=== PATIENT | female | born 1950 | race Caucasian/White ===

== ENCOUNTER 2018-03-11 17:02 | Inpatient (IN) | payer MEDICARE, SELFPAY ==
[2018-03-11] VITALS (12 sets, daily range): BP systolic 117–141; BP diastolic 67–78; PULSE 85–111; RESP 14–22; TEMP 37.1; O2SAT 88–97; BMI 22.6; BMI 39.8
--- NOTE | 2018-03-11 17:26 | EKG12_ITS ---
Test Reason : DYSRHYTHMIA Blood Pressure : / mmHG Vent. Rate : 107 BPM Atrial Rate : 107 BPM P-R Int : 142 ms QRS Dur : 098 ms QT Int : 346 ms P-R-T Axes : 042 046 038 degrees QTc Int : 461 ms Sinus tachycardia with Premature atrial complexes Otherwise normal ECG Confirmed by RICKY GAMINO, DIAZ ([id number]), non linear editor YOUSIF LITTLE ([id number]) on 03/13/2018 2:38:36 PM Referred By: JACQUELINE Confirmed By:DIAZ GARCÍA MD
[2018-03-11] MEDS: MethylPREDNISolone 125 MG/2 ML Vial IV (17:45)
[2018-03-11] MEDS: Albuterol 2.5 MG/3 ML VIAL.NEB. INHALATION ×2 (17:45)
[2018-03-11] MEDS: Ipratropium/Albuterol Sulfate 3 ML AMPUL.NEB INHALATION ×2 (17:45→22:40)
[2018-03-11] MEDS: 0.9% Normal Saline 1,000 ML 999 ML IV ×2 (17:45→19:26)
[2018-03-11 18:04] LABS: Absolute Neutrophil Count 15.6 X10^3/uL (2.0-7.7); Hematocrit 27.6 % (37-47); Hemoglobin 8.9 g/dl (12.0-15.0); Lymphocyte % 2.3 % (19-41); Mean Corp Hgb Conc 32.2 g/gl (32-36); Mean Corpuscular Hgb 26.2 pg (27.0-32.0); Mean Corpuscular Volume 81.2 fL (81-99); Mean Platelet Vol. 9.6 fl (6.2-12.0); Monocyte# 1.12 X10^3/uL; Monocyte% 6.5 % (0-10); Neutrophil % 91.1 % (47-70); Platelet Count 184 K/mm3 (150-450); RBC Distribution Width SD 47.9 fl (35.1-43.9); White Blood Count 17.1 K/mm3 (4.4-11.0)
[2018-03-11 18:05] LABS: POSITIVE COUNT NO; POSITIVE DIFFERENTIAL YES; POSITIVE MORPHOLOGY NO
[2018-03-11 18:06] LABS: Differential Indicated SCAN CRITERIA MET
[2018-03-11 18:09] LABS: Anion Gap 14 (5-15); BUN 84 mg/dL (7-18); BUN/Creat Ratio 14.3 RATIO (10-20); Calcium,Total 8.9 mg/dL (8.5-10.1); Chloride 103 mmol/L (98-107); Creatinine, Serum 5.88 mg/dL (0.55-1.02); EST Glomerular Filtration Rate 8 mL/min (>60); Est Glom Filt Rate - Afr Amer 9 mL/min (>60); Estimated Creatinine Clearance 7.54 ml/min; Glucose 135 mg/dL (74-106); Potassium 3.6 mmol/L (3.5-5.1); Sodium Level 132 mmol/L (136-145)
--- NOTE | 2018-03-11 18:15 | RAD_ITS ---
STUDY: X-RAY CHEST REASON FOR EXAM: Female, 67 years old. Cough and hypoxia TECHNIQUE: AP and lateral views of the chest. COMPARISON: Previous study of 05/07/2013 FINDINGS: organic extractions technician leads are present. There is extensive infiltrate and/or atelectasis appearing to be in the superior segment of the right lower lobe. Underlying fibrotic changes may be present. There are status post surgical changes of the right lower and upper lobes. There is right costo phrenic angle blunting. There is evidence of right hemithoracic volume loss. Normal size heart. Normal mediastinum and norma. Normal visualized pulmonary arteries. There are calcified plaques of the aortic arch. Normal visualized thoracic spine. Normal visualized ribs, clavicles, and shoulders. There is no demonstrated abnormality of the visualized soft tissue structures of the upper abdomen. RAD/Chest PA and Lateral IMPRESSION: Extensive infiltrate and/or atelectasis appearing to be in the superior segment of the right lower lobe. This is new in the interval. There may be underlying fibrotic changes as well. There is status post surgical changes of the right lower and upper lobes with associated right hemithoracic volume loss. Right costo phrenic angle blunting consistent with small effusion or pleural reaction. Calcified plaques of the aortic arch. Electronically Signed: Farhan Mathias MD at 19:27 EDT , Service support ,
--- NOTE | 2018-03-11 18:41 | ED.DCSUM_ITS ---
- ER Visit Summary Date of Service: 03/11/18 Chief Complaint: Cough and shortness of breath History of Present Illness: The patient is a 67 F 3 primary lung CA with a right upper lobe pneumonectomy. He states last week she has had a cough of yellowish sputum and shortness of breath. Offices. No chest pain. Physical Examination: Older female vital signs stable pulse ox is 91% room air however there are times she drops down the high 80s consistent with hypoxia. H EENT exam unremarkable. Neck nontender no lymphadenopathy. Lungs diminished breath sounds in the right base. Rhonchi in both bases. Heart regular rhythm rate about 105 no murmur. Abdomen soft and nontender. She is moving all 4 extremities. Calves are nontender. Skin is pale. Neurologically she is awake and alert without focal motor deficits. Test Results: Chest x-ray shows a right lower lobe lobar pneumonia. White count elevated 17,100. Hemoglobin is low at 8.9 she has had prior anemias. Electrolytes show sodium 132. CO2 of 15. Her BUN and creatinine are 84 and 5.8 consistent with her renal failure and her anion gap is 14. Emergency Department Course and Treatment: [] Treatment Plan: [] Disposition: [] Impression: [] This note was generated with [employer] dictation software. It may contain incorrect words, spelling, and punctuation that were not noted in review of the chart prior to signing ED Disposition - Plan for ED Patient: Chief Complaint: Cough Referrals: Care Physician,No Primary [Primary Care Provider] -
--- NOTE | 2018-03-11 19:23 | PCM.HP.STD ---
Problem List (1) CAP (community acquired pneumonia) Status: Acute (2) [place] CKD Stage 3 Status: Acute (3) COPD (chronic obstructive pulmonary disease) Status: Chronic (4) History of lung cancer Status: Chronic (5) Benign hypertension Status: Chronic History of Present Illness Date of Admission: 03/11/18 Chief Complaint: Cough shortness of breath for 1 week The patient is a 67 year old F with history of lung cancer status post right upper lobectomy many years ago, did not require adjuvant therapy came to ER with cough with yellowish sputum and shortness of breath for 1 week. Patient also has intermittent fever for 1 day. In ER, patient was found to have hypoxic, at times pulse ox dropped in 88% on room air. Heart rate 104 and respiratory 22/min. Chest x-ray shows right lower lobe opacity/consolidation with underlying atelectasis. Lab work in ER significant of leukocytosis with left shift, acute kidney injury on CKD stage III mild hyponatremia. . [] Past Medical History Past Medical History (Chronic Problems): Chronic Problems COPD (chronic obstructive pulmonary disease) (Chronic) History of lung cancer (Chronic) Benign hypertension (Chronic) Allergies erythromycin base [Erythromycin Base] Adverse Reaction (Verified 03/11/18 17:05) Nausea Home Medications: Ambulatory Orders Medication Instructions Recorded NK [NK] 03/11/18 Surgical History: lobectomy Smoking Status: Former smoker - *Family History Paternal History Items: No pertinent history Review of Systems Constitutional: Reports: Chills, Fever, Malaise, Weakness HEENT: Denies: Head Aches, Sinus Congestion, Sinus Drainage Cardiovascular: Denies: Chest Pain, Palpitations Respiratory: Reports: Cough, Shortness of breath upon exertion, Sputum production. Denies: Shortness of breath at rest Gastrointestinal: Denies: Abdominal Pain, Nausea, Vomiting Genitourinary: Denies: Dysuria Musculoskeletal: Denies: Joint Pain, Joint Tenderness Skin: Denies: Rash, Wounds Neurological: Denies: Numbness, Tingling, Focal weakness Psychiatric: Denies: Anxiety, Depression, Homicidal Ideations, Suicidal Ideations Hematologic/ Lymphatic: Denies: Easy Bruising, Easy Bleeding VTE Information - Inpt Only VTE Present on Admission: No VTE Mechan Device Prophylaxis: SCD's VTE Pharm Prophylaxis ordered?: Yes Patient Problems: Active and Suspected Problems CAP (community acquired pneumonia) (Acute) [place] CKD Stage 3 (Acute) - Physical Exam General: Alert, Oriented x3, Cooperative HEENT: Atraumatic, PERRLA, EOMI, Normocephalic Neck: Supple, No JVD, Negative Carotid Bruits Lungs: Diminished - Air entry diminished on the right lung, Rales - Coarse crepitation present on the posterior half of right lung, Rhonchi, Tachypneic Cardiovascular: Regular Rhythm, Normal S1, Normal S2, No murmurs, Tachycardic Abdomen: Bowel Sounds Present, Soft, Non Tender, Non-Distended Extremities: No edema, Capillary Refill Less than 3 Seconds Skin: No rashes, No breakdown Musculoskeletal: No Tenderness to Palpation of Joints or Extremities, Arthritic Changes, Muscle Wasting Neurological: Cranial nerves II-XII grossly intact Psych/Mental Status: Normal Affect, Appropriate Vital Signs Temp Pulse Resp BP Pulse Ox 98.8 F 85 16 131/67 H 96 03/11/18 17:02 03/11/18 18:40 03/11/18 18:40 03/11/18 18:40 03/11/18 18:40 Oxygen Flow Rate (L/min) 2 Oxygen Delivery Method Nasal Cannula Weight: 123 lb 10.869 oz Body Mass Index (BMI) 22.6 Laboratory Tests Past 24 Hrs 03/11/18 03/11/18 03/11/18 17:45 17:45 19:00 WBC 17.1 H RBC 3.40 L Hgb 8.9 L Hct 27.6 L MCV 81.2 MCH 26.2 L MCHC 32.2 RDW 16.0 H RDW Differential 47.9 H Plt Count 184 MPV 9.6 Immature Gran % (Auto) 0.100 Neut % (Auto) 91.1 H Lymph % (Auto) 2.3 L [place] % (Auto) 6.5 Eos % (Auto) 0.0 Baso % (Auto) 0.0 Absolute Neuts (auto) 15.6 H Absolute Lymphs (auto) 0.40 L Total Counted Pending Sodium 132 L Potassium 3.6 Chloride 103 Carbon Dioxide 15.0 L Anion Gap 14 BUN 84 H Creatinine 5.88 H Estim Creat Clear Calc 7.54 Est GFR (MDRD) Af Amer 9 L Est GFR (MDRD) Non-Af 8 L BUN/Creatinine Ratio 14.3 Glucose 135 H Lactic Acid Pending Calcium 8.9 Assessment/Plan Active and Suspected Problems CAP (community acquired pneumonia) (Acute) [place] CKD Stage 3 (Acute) The patient is a 67 year old F with history of lung cancer status post right upper lobectomy many years ago, did not require adjuvant therapy came to ER with cough with yellowish sputum and shortness of breath for 1 week. Patient also has intermittent fever for 1 day. In ER, patient was found to have hypoxic, at times pulse ox dropped in 88% on room air. Heart rate 104 and respiratory 22/min. Chest x-ray shows extensive infiltrate and/or atelectasis in the superior segment of right lower lobe. May be underlying fibrotic change. Lab work in ER significant of leukocytosis with left shift, acute kidney injury on CKD stage III mild hyponatremia. Patient was last admitted in [facility] in [facility] 2017 for pneumonia and at that time she had kidney failure and was told to follow with spray dry operator. 1. SIRS (tachycardia, tachypnea, hypoxia and leukocytosis) right lower lobe community-acquired pneumonia: The patient is being admitted on PCU. Cardiac monitoring. Lactic acid is pending. Patient got Rocephin and Flomax in ER. Started on IV Zosyn and Zithromax in view of extensive consolidation/infiltrate in the right lower lobe and history of lung cancer. MRSA nasal screening. Pneumonia workup including blood cultures ?2, sputum culture, urinary antigens and influenza test ordered. 2. COPD: Stable with no exacerbation. Continue bronchodilator, incentive spirometry, chest physiotherapy. 3. Acute kidney injury on CKD stage III: On review her creatinine profile, creatinine was 3.3 in April 2013 with baseline around 2.5 in July 2014 and now 5.88. BUN is elevated at 84. Patient does not follow with PCP and spray dry operator although was recommended during last admission as mentioned above. Consult nephrology, Dr. Yusuf. 4. Other comorbidities include hypertension and chronic mild protein calorie malnutrition: Home medication reconciliation done. DVT prophylaxis: On heparin 500 subcutaneous twice daily and bilateral SCDs. Advanced directive: Advanced directive/end-of-life care discussed with the patient and her son, Mr. Moody Hammonds and they want intubation if needed and other life supporting measures including CPR. For now, full code. The patient needs further discussion with the family members to reach definitive conclusion. 17 minutes time spent on [id number] encounter advanced directive. Laboratory Results 03/11/18 17:45: WBC 17.1 H, RBC 3.40 L, Hgb 8.9 L, Hct 27.6 L, MCV 81.2, MCH 26.2 L, MCHC 32.2, RDW 16.0 H, RDW Differential 47.9 H, Plt Count 184, MPV 9.6, Immature Gran % (Auto) 0.100, Neut % (Auto) 91.1 H, Lymph % (Auto) 2.3 L, [place] % (Auto) 6.5, Eos % (Auto) 0.0, Baso % (Auto) 0.0, Absolute Neuts (auto) 15.6 H, Absolute Lymphs (auto) 0.40 L, Total Counted Pending 03/11/18 17:45: Sodium 132 L, Potassium 3.6, Chloride 103, Carbon Dioxide 15.0 L, Anion Gap 14, BUN 84 H, Creatinine 5.88 H, Estim Creat Clear Calc 7.54, Est GFR (MDRD) Af Amer 9 L, Est GFR (MDRD) Non-Af 8 L, BUN/Creatinine Ratio 14.3, Glucose 135 H, Calcium 8.9 03/11/18 19:00: Lactic Acid Pending Clinical Impression(s) from Imaging Studies Chest X-Ray 03/11/18 18:15 IMPRESSION: Extensive infiltrate and/or atelectasis appearing to be in the superior segment of the right lower lobe. This is new in the interval. There may be underlying fibrotic changes as well. There is status post surgical changes of the right lower and upper lobes with associated right hemithoracic volume loss. Right costo phrenic angle blunting consistent with small effusion or pleural reaction. Calcified plaques of the aortic arch. Code Visit Inpatient E&M: 98786 Init Hosp L3 Procedures: 97211 Advncd Care Plan 30 Min
[2018-03-11] MEDS: Ceftriaxone 1 GM/50 mL Premix x1 IV (19:26)
--- NOTE | 2018-03-11 19:38 | HP.PCM_ITS ---
Problem List (1) CAP (community acquired pneumonia) Status: Acute (2) [place] CKD Stage 3 Status: Acute (3) COPD (chronic obstructive pulmonary disease) Status: Chronic (4) History of lung cancer Status: Chronic (5) Benign hypertension Status: Chronic History of Present Illness Date of Admission: 03/11/18 Chief Complaint: Cough shortness of breath for 1 week The patient is a 67 year old F with history of lung cancer status post right upper lobectomy many years ago, did not require adjuvant therapy came to ER with cough with yellowish sputum and shortness of breath for 1 week. Patient also has intermittent fever for 1 day. In ER, patient was found to have hypoxic , at times pulse ox dropped in 88% on room air. Heart rate 104 and respiratory 22/min. Chest x-ray shows right lower lobe opacity/consolidation with underlying atelectasis. Lab work in ER significant of leukocytosis with left shift, acute kidney injury on CKD stage III mild hyponatremia. . [] Past Medical History Past Medical History (Chronic Problems): Chronic Problems COPD (chronic obstructive pulmonary disease) (Chronic) History of lung cancer (Chronic) Benign hypertension (Chronic) Allergies erythromycin base [Erythromycin Base] Adverse Reaction (Verified 03/11/18 17:05) Nausea Home Medications: Ambulatory Orders Medication Instructions Recorded NK [NK] 03/11/18 Surgical History: lobectomy Smoking Status: Former smoker - *Family History Paternal History Items: No pertinent history Review of Systems Constitutional: Reports: Chills, Fever, Malaise, Weakness HEENT: Denies: Head Aches, Sinus Congestion, Sinus Drainage Cardiovascular: Denies: Chest Pain, Palpitations Respiratory: Reports: Cough, Shortness of breath upon exertion, Sputum production. Denies: Shortness of breath at rest Gastrointestinal: Denies: Abdominal Pain, Nausea, Vomiting Genitourinary: Denies: Dysuria Musculoskeletal: Denies: Joint Pain, Joint Tenderness Skin: Denies: Rash, Wounds Neurological: Denies: Numbness, Tingling, Focal weakness Psychiatric: Denies: Anxiety, Depression, Homicidal Ideations, Suicidal Ideations Hematologic/ Lymphatic: Denies: Easy Bruising, Easy Bleeding VTE Information - Inpt Only VTE Present on Admission: No VTE Mechan Device Prophylaxis: SCD's VTE Pharm Prophylaxis ordered?: Yes Patient Problems: Active and Suspected Problems CAP (community acquired pneumonia) (Acute) [place] CKD Stage 3 (Acute) - Physical Exam General: Alert, Oriented x3, Cooperative HEENT: Atraumatic, PERRLA, EOMI, Normocephalic Neck: Supple, No JVD, Negative Carotid Bruits Lungs: Diminished - Air entry diminished on the right lung, Rales - Coarse crepitation present on the posterior half of right lung, Rhonchi, Tachypneic Cardiovascular: Regular Rhythm, Normal S1, Normal S2, No murmurs, Tachycardic Abdomen: Bowel Sounds Present, Soft, Non Tender, Non-Distended Extremities: No edema, Capillary Refill Less than 3 Seconds Skin: No rashes, No breakdown Musculoskeletal: No Tenderness to Palpation of Joints or Extremities, Arthritic Changes, Muscle Wasting Neurological: Cranial nerves II-XII grossly intact Psych/Mental Status: Normal Affect, Appropriate Vital Signs Temp Pulse Resp BP Pulse Ox 98.8 F 85 16 131/67 H 96 03/11/18 17:02 03/11/18 18:40 03/11/18 18:40 03/11/18 18:40 03/11/18 18:40 Oxygen Flow Rate (L/min) 2 Oxygen Delivery Method Nasal Cannula Weight: 123 lb 10.869 oz Body Mass Index (BMI) 22.6 Laboratory Tests Past 24 Hrs 03/11/18 03/11/18 03/11/18 17:45 17:45 19:00 WBC 17.1 H RBC 3.40 L Hgb 8.9 L Hct 27.6 L MCV 81.2 MCH 26.2 L MCHC 32.2 RDW 16.0 H RDW Differential 47.9 H Plt Count 184 MPV 9.6 Immature Gran % (Auto) 0.100 Neut % (Auto) 91.1 H Lymph % (Auto) 2.3 L [place] % (Auto) 6.5 Eos % (Auto) 0.0 Baso % (Auto) 0.0 Absolute Neuts (auto) 15.6 H Absolute Lymphs (auto) 0.40 L Total Counted Pending Sodium 132 L Potassium 3.6 Chloride 103 Carbon Dioxide 15.0 L Anion Gap 14 BUN 84 H Creatinine 5.88 H Estim Creat Clear Calc 7.54 Est GFR (MDRD) Af Amer 9 L Est GFR (MDRD) Non-Af 8 L BUN/Creatinine Ratio 14.3 Glucose 135 H Lactic Acid Pending Calcium 8.9 Assessment/Plan Active and Suspected Problems CAP (community acquired pneumonia) (Acute) [place] CKD Stage 3 (Acute) The patient is a 67 year old F with history of lung cancer status post right upper lobectomy many years ago, did not require adjuvant therapy came to ER with cough with yellowish sputum and shortness of breath for 1 week. Patient also has intermittent fever for 1 day. In ER, patient was found to have hypoxic , at times pulse ox dropped in 88% on room air. Heart rate 104 and respiratory 22/min. Chest x-ray shows extensive infiltrate and/or atelectasis in the superior segment of right lower lobe. May be underlying fibrotic change. Lab work in ER significant of leukocytosis with left shift, acute kidney injury on CKD stage III mild hyponatremia. Patient was last admitted in [facility] in September 2017 for pneumonia and at that time she had kidney failure and was told to follow with tandem mill operator. 1. SIRS (tachycardia, tachypnea, hypoxia and leukocytosis) right lower lobe community-acquired pneumonia: The patient is being admitted on PCU. Cardiac monitoring. Lactic acid is pending. Patient got Rocephin and Flomax in ER. Started on IV Zosyn and Zithromax in view of extensive consolidation/infiltrate in the right lower lobe and history of lung cancer. MRSA nasal screening. Pneumonia workup including blood cultures ?2, sputum culture, urinary antigens and influenza test ordered. 2. COPD: Stable with no exacerbation. Continue bronchodilator, incentive spirometry, chest physiotherapy. 3. Acute kidney injury on CKD stage III: On review her creatinine profile, creatinine was 3.3 in April 2013 with baseline around 2.5 in July 2014 and now 5.88. BUN is elevated at 84. Patient does not follow with PCP and tandem mill operator although was recommended during last admission as mentioned above. Consult nephrology, Dr. Yusuf. 4. Other comorbidities include hypertension and chronic mild protein calorie malnutrition: Home medication reconciliation done. DVT prophylaxis: On heparin 500 subcutaneous twice daily and bilateral SCDs. Advanced directive: Advanced directive/end-of-life care discussed with the patient and her son, Mr. Moody Hammonds and they want intubation if needed and other life supporting measures including CPR. For now, full code. The patient needs further discussion with the family members to reach definitive conclusion. 17 minutes time spent on [id number] encounter advanced directive. Laboratory Results 03/11/18 17:45: WBC 17.1 H, RBC 3.40 L, Hgb 8.9 L, Hct 27.6 L, MCV 81.2, MCH 26.2 L, MCHC 32.2, RDW 16.0 H, RDW Differential 47.9 H, Plt Count 184, MPV 9.6, Immature Gran % (Auto) 0.100, Neut % (Auto) 91.1 H, Lymph % (Auto) 2.3 L, [place] % (Auto) 6.5, Eos % (Auto) 0.0, Baso % (Auto) 0.0, Absolute Neuts (auto) 15.6 H , Absolute Lymphs (auto) 0.40 L, Total Counted Pending 03/11/18 17:45: Sodium 132 L, Potassium 3.6, Chloride 103, Carbon Dioxide 15.0 L , Anion Gap 14, BUN 84 H, Creatinine 5.88 H, Estim Creat Clear Calc 7.54, Est GFR (MDRD) Af Amer 9 L, Est GFR (MDRD) Non-Af 8 L, BUN/Creatinine Ratio 14.3, Glucose 135 H, Calcium 8.9 03/11/18 19:00: Lactic Acid Pending Clinical Impression(s) from Imaging Studies Chest X-Ray 03/11/18 18:15 IMPRESSION: Extensive infiltrate and/or atelectasis appearing to be in the superior segment of the right lower lobe. This is new in the interval. There may be underlying fibrotic changes as well. There is status post surgical changes of the right lower and upper lobes with associated right hemithoracic volume loss. Right costo phrenic angle blunting consistent with small effusion or pleural reaction. Calcified plaques of the aortic arch. Code Visit Inpatient E&M: 57583 Init Hosp L3 Procedures: 69918 Advncd Care Plan 30 Min
[2018-03-11 19:41] LABS: Lactic Acid 2.9 mmol/L (0.4-2.0)
[2018-03-11 19:51] LABS: Anisocytosis 1+; Burr Cells 1+; Differential Comment SCANNED
[2018-03-11 19:53] LABS: Platelet Estimate ADEQUATE (ADEQ)
[2018-03-11 22:11] LABS: M R Staph aureus DNA By PCR Negative (Negative); Probe Check PASS; Specimen Processing Control PASS
[2018-03-11] MEDS: guaiFENesin 1,200 MG Tablet 1200 MG PO (22:22)
[2018-03-11] MEDS: Piperacil/Tazobactam 3.375 GM/50 ML ML IV (22:22)
[2018-03-11] MEDS: Famotidine 20 MG Tablet PO (22:22)
[2018-03-11] MEDS: 0.9% Normal Saline 1,000 ML 100 ML IV (22:22)
[2018-03-11 22:39] LABS: Lactic Acid 2.6 mmol/L (0.4-2.0)
[2018-03-11 23:06] LABS: Reflex Lactate? Y
[2018-03-11] MEDS: Heparin Injection (Vial) 5,000 UNIT/ML VIAL 5000 UNIT SC (23:40)
[2018-03-11 23:59] LABS: Color, Urine Yellow (Yellow); Glucose, Dipstick Normal (Normal); Ketone-Dipstick Negative (Negative); Leukocyte Esterase-Dipstick 25 /ul (Negative); Nitrite-Dipstick Negative (Negative); Occult Blood-Urine 25 /ul (Negative); Protein-Dipstick 100 mg/dl (Negative); Urine Bilirubin Dipstick Negative (Negative); Urine Clarity Clear (Clear); Urine Urobilinogen Normal (Normal)
[2018-03-12] VITALS (21 sets, daily range): BP systolic 142–174; BP diastolic 77–86; PULSE 77–114; RESP 16–19; TEMP 36.4–37.1; O2SAT 96–99
[2018-03-12] MEDS: 0.9% Normal Saline 1,000 ML 100 ML IV ×3 (01:03→22:15)
[2018-03-12 02:08] LABS: Reflex Lactate? Y
[2018-03-12 07:19] LABS: Lactic Acid 1.5 mmol/L (0.4-2.0)
[2018-03-12] MEDS: Ipratropium/Albuterol Sulfate 3 ML AMPUL.NEB INHALATION ×4 (07:40→21:11)
[2018-03-12] MEDS: Famotidine 20 MG Tablet PO ×2 (09:51→22:15)
[2018-03-12] MEDS: guaiFENesin 1,200 MG Tablet 1200 MG PO ×2 (09:51→22:15)
[2018-03-12] MEDS: Polyethylene Glycol 3350 17 GM PACKET PO (09:55)
[2018-03-12] MEDS: Heparin Injection (Vial) 5,000 UNIT/ML VIAL 5000 UNIT SC ×2 (09:55→22:15)
[2018-03-12] MEDS: Piperacil/Tazobactam 3.375 GM/50 ML ML IV (10:00)
--- NOTE | 2018-03-12 10:43 | PCM.CONS.R ---
Consultation - Renal 03/12/18 PCP/ Referring MD: Requesting physician: Ronald Pederson Primary care physician: No Primary Care Phys Reason for Consultation:: [place] - History of Present Illness History of Present Illness: The patient is a 67 year old F admitted for right lower lobe pneumonia. She has a history of lung CA s/p right upper lobe lobectomy in 2007 at [facility] not requiring any chemo or radiation following surgery. She complained of a productive cough with yellow sputum, shortness of breath since last week. WBC elevated at 17K on admit. BUN 84, creatinine 5.8 with anion gap 14. Creatinine has been at 0.95 in 2012. Creatinine has been at 2.5 in 2013. She has no primary care physician. Her last primary care doctor was Dr. Radha Gifford when she was last seen in 2012. She was on medications for hypertension including Cozaar and potassium supplements [id number] for cramps. She was taken off all her blood pressure medications due to hypotension in 2012. She was at [facility] for pneumonia about 6 months ago. Kidney ultrasound from [facility] in May 2013 showed right kidney measuring 10.4 cm left kidney 11.7 cm. She had a cyst measuring 10 x 8 x 5 mm on the right. She had bilateral hydronephrosis. Currently she denies any flank pain. Denied any bladder fullness. She has nocturia about 3 times at night. Since admission she had decreased urinary output despite IV fluid resuscitation for hypotension. She complained of weakness at home. Denied any falls or lightheadedness dizziness. Her appetite has been poor over the weekend. Denied any abdominal pain nausea or vomiting. She has a history of chronic NSAID use years ago. She did take ibuprofen about 2 a day for general aches. Denied any fever or chills. Her son was sick at home. - Allergies Allergies: Allergies erythromycin base [Erythromycin Base] Adverse Reaction (Verified 03/11/18 17:05) Nausea - Current Medications Current Medications: Current Medications Acetaminophen (Tylenol) 650 mg PO Q4H PRN PRN PRN Reason: Fever/pain Al Hydroxide/Mg Hydroxide (Mylanta Ii) 30 ml PO Q6H PRN PRN PRN Reason: Gastric Burning Albuterol Sulfate (Ventolin Aerosols) 2.5 mg INHALATION Q2H PRN PRN PRN Reason: SHORTNESS OF BREATH Albuterol/Ipratropium (Duoneb) 3 ml INHALATION Q4HWA.RT [facility] Last Admin: 03/12/18 07:40 Dose: 3 ml Docusate Sodium (Colace) 200 mg PO BID PRN PRN PRN Reason: Constipation Famotidine (Pepcid) 20 mg PO BID [facility] Last Admin: 03/12/18 09:51 Dose: 20 mg Guaifenesin (Mucinex) 1,200 mg PO BID [facility] Last Admin: 03/12/18 09:51 Dose: 1,200 mg Heparin Sodium (Porcine) (Heparin Na) 5,000 unit SC Q12 [facility] Last Admin: 03/12/18 09:55 Dose: 5,000 unit Azithromycin 500 mg/ Dextrose 255 mls @ 250 mls/hr IV Q24 [facility] Stop: 03/14/18 11:02 Last Admin: 03/12/18 09:55 Dose: 250 mls/hr Piperacillin Sod/Tazobactam Sod (Zosyn) 3.375 gm in 50 mls @ 12.5 mls/hr IV Q12 [facility] Last Admin: 03/12/18 10:00 Dose: 12.5 mls/hr Sodium Chloride () 1,000 mls @ 100 mls/hr IV .Q10H [facility] Last Admin: 03/12/18 09:50 Dose: 100 mls/hr Ondansetron HCl (Zofran) 4 mg IV Q8H PRN PRN PRN Reason: NAUSEA Oxycodone HCl (Oxyir) 5 mg PO Q4H PRN PRN PRN Reason: Moderate Pain (pain scale 4-5) Polyethylene Glycol (Miralax) 17 gm PO DAILY [facility] Last Admin: 03/12/18 09:55 Dose: 17 gm Sodium Chloride () 5 - 30 ml IV UD PRN PRN Reason: SALINE FLUSH Zolpidem Tartrate (Ambien (Generic)) 5 mg PO QHS PRN PRN PRN Reason: SLEEP - Past Medical History Past Medical History (Chronic Problems): Chronic Problems COPD (chronic obstructive pulmonary disease) (Chronic) History of lung cancer (Chronic) Benign hypertension (Chronic) - Past Surgical History Surgical History: cholecystectomy, - - RLL lobectomy - Social History Smoking Status: Former smoker - Family History Paternal History Items: Dementia, Heart Disease, Hypertension, Stroke Maternal History Items: Hypertension Sibling History Items: COPD - sister, Heart Disease - 2 brothers, Hypertension - brother, sister Review of Systems Constitutional: Reports: Anorexia, Malaise, Weakness, Fatigue, - - Denied falls. Denies: Chills, Fever Eyes: Denies: Vision Change HEENT: Denies: Difficulty Hearing, Head Aches, Sore Throat Cardiovascular: Denies: Chest Pain, Edema, Light Headedness, Syncope Respiratory: Reports: Cough, Shortness of Breath, - - History of lung cancer status post right upper lobe lobectomy. Denies: Hemoptysis, Wheezing Gastrointestinal: Reports: - - Anorexia. Denies: Abdominal Pain, Constipation, Diarrhea, Nausea, Vomiting Genitourinary: Reports: Nocturia - 3 times a night. Denies: Dysuria Neurological: Denies: Balance problems, Slurred speech, Numbness, Tremor, Seizures Psychiatric: Denies: Anxiety, Depression Hematologic/ Lymphatic: Denies: Anemia, Hx of blood clot Patient Problems: Active and Suspected Problems CAP (community acquired pneumonia) (Acute) [place] CKD Stage 3 (Acute) - Physical Exam General: Alert, Oriented x3, Cooperative, No apparent distress HEENT: PERRLA, EOMI Oral: Dry Mucosa Neck: Supple, No JVD Lungs: Rales - Right lung base posteriorly Cardiovascular: Regular rate, No rub noted Abdomen: Bowel Sounds Present, Soft, Non Tender, Non-Distended Extremities: No edema, Diminished Peripheral Pulses Skin: No rashes Musculoskeletal: Muscle Wasting Neurological: Cranial nerves II-XII grossly intact Psych/Mental Status: Normal Affect, Appropriate, Alert and oriented to time, place, person, mood and affect Vital Signs Temp Pulse Resp BP Pulse Ox 98.7 F 91 18 142/86 H 99 03/12/18 04:17 03/12/18 09:34 03/12/18 09:34 03/12/18 04:17 03/12/18 09:34 Oxygen Flow Rate (L/min) 2 Oxygen Delivery Method Nasal Cannula Weight: 98.7 kg Body Mass Index (BMI) 39.8 Intake and Output for Last 24 Hours 03/10/18 03/11/18 03/12/18 23:59 23:59 23:59 Intake Total 2231 / 223 Balance 2231 / 2231 Microbiology Past 72 Hours 03/11/18 23:50 Legionella Antigen - Final Urine, Clean Catch 03/11/18 23:50 Streptococcus pneumoniae Antigen (M - Final Urine, Clean Catch 03/11/18 22:35 Influenza Types A,B Direct FA (JOSEE) - Final Mucosa - Nose 03/11/18 20:41 Gram Stain - Preliminary Sputum, Expectorated/Coughed Laboratory Tests Past 24 Hrs 03/11/18 03/11/18 03/11/18 19:00 20:20 22:00 Lactic Acid 2.9 H 2.6 H Urine Color Urine Clarity Urine pH Ur Specific [place] Urine Protein Urine Glucose (UA) Urine Ketones Urine Occult Blood Urine Nitrite Urine Bilirubin Urine Urobilinogen Ur Leukocyte Esterase MRSA (PCR) Negative 03/11/18 03/12/18 23:50 06:46 Lactic Acid 1.5 Urine Color Yellow Urine Clarity Clear Urine pH 6.0 Ur Specific [place] 1.010 Urine Protein 100 H Urine Glucose (UA) Normal Urine Ketones Negative Urine Occult Blood 25 H Urine Nitrite Negative Urine Bilirubin Negative Urine Urobilinogen Normal Ur Leukocyte Esterase 25 H MRSA (PCR) Clinical Impression(s) from Imaging Studies Chest X-Ray 03/11/18 18:15 IMPRESSION: Extensive infiltrate and/or atelectasis appearing to be in the superior segment of the right lower lobe. This is new in the interval. There may be underlying fibrotic changes as well. There is status post surgical changes of the right lower and upper lobes with associated right hemithoracic volume loss. Right costo phrenic angle blunting consistent with small effusion or pleural reaction. Calcified plaques of the aortic arch. Electronically Signed: Farhan Mathias MD at 19:27 EDT , Service support , Assessment/Plan Active and Suspected Problems CAP (community acquired pneumonia) (Acute) [place] CKD Stage 3 (Acute) 1. Acute kidney injury versus chronic kidney disease with creatinine of 5.88 on admission. Creatinine has been 0.95 in 2012 but has been as high as 3.3 2012, 2.5 in July 2014. Kidney ultrasound from [facility] in May 2013 showed normal size kidneys bilateral hydronephrosis with cyst in the right kidney measuring 10 x 8 x 5 mm. Check kidney ultrasound this admission to evaluate for hydronephrosis and evaluate renal cyst. Continue with IV fluids. History of NSAID use recently over the weekend and in the past. Advised to avoid NSAID use in the future. Avoid nephrotoxins. Daily labs to evaluate for kidney function. Discussed with the patient possibility of needing dialysis if her renal function does not improve. 2. Acute right lower lobe pneumonia. Renal adjust antibiotic therapy 3. history of right upper lobe lobectomy for lung cancer in 2007. 4. History of hypertension off all blood pressure medications. Continue to monitor. Has been on Cozaar in the past. 5. COPD with smoking history quit 2007. Discussed with primary service.
--- NOTE | 2018-03-12 10:48 | CON.PCM_ITS ---
Consultation - Renal 03/12/18 PCP/ Referring MD: Requesting physician: Ronald Pederson Primary care physician: No Primary Care Phys Reason for Consultation:: [place] - History of Present Illness History of Present Illness: The patient is a 67 year old F admitted for right lower lobe pneumonia. She has a history of lung CA s/p right upper lobe lobectomy in 2007 at [facility] not requiring any chemo or radiation following surgery. She complained of a productive cough with yellow sputum, shortness of breath since last week. WBC elevated at 17K on admit. BUN 84, creatinine 5.8 with anion gap 14. Creatinine has been at 0.95 in 2012. Creatinine has been at 2.5 in 2013. She has no primary care physician. Her last primary care doctor was Dr. Radha Gifford when she was last seen in 2012. She was on medications for hypertension including Cozaar and potassium supplements [id number] for cramps. She was taken off all her blood pressure medications due to hypotension in 2012. She was at [facility] for pneumonia about 6 months ago. Kidney ultrasound from [facility] in May 2013 showed right kidney measuring 10.4 cm left kidney 11.7 cm. She had a cyst measuring 10 x 8 x 5 mm on the right. She had bilateral hydronephrosis. Currently she denies any flank pain. Denied any bladder fullness. She has nocturia about 3 times at night. Since admission she had decreased urinary output despite IV fluid resuscitation for hypotension. She complained of weakness at home. Denied any falls or lightheadedness dizziness. Her appetite has been poor over the weekend. Denied any abdominal pain nausea or vomiting. She has a history of chronic NSAID use years ago. She did take ibuprofen about 2 a day for general aches. Denied any fever or chills. Her son was sick at home. - Allergies Allergies: Allergies erythromycin base [Erythromycin Base] Adverse Reaction (Verified 03/11/18 17:05) Nausea - Current Medications Current Medications: Current Medications Acetaminophen (Tylenol) 650 mg PO Q4H PRN PRN PRN Reason: Fever/pain Al Hydroxide/Mg Hydroxide (Mylanta Ii) 30 ml PO Q6H PRN PRN PRN Reason: Gastric Burning Albuterol Sulfate (Ventolin Aerosols) 2.5 mg INHALATION Q2H PRN PRN PRN Reason: SHORTNESS OF BREATH Albuterol/Ipratropium (Duoneb) 3 ml INHALATION Q4HWA.RT [facility] Last Admin: 03/12/18 07:40 Dose: 3 ml Docusate Sodium (Colace) 200 mg PO BID PRN PRN PRN Reason: Constipation Famotidine (Pepcid) 20 mg PO BID [facility] Last Admin: 03/12/18 09:51 Dose: 20 mg Guaifenesin (Mucinex) 1,200 mg PO BID [facility] Last Admin: 03/12/18 09:51 Dose: 1,200 mg Heparin Sodium (Porcine) (Heparin Na) 5,000 unit SC Q12 [facility] Last Admin: 03/12/18 09:55 Dose: 5,000 unit Azithromycin 500 mg/ Dextrose 255 mls @ 250 mls/hr IV Q24 [facility] Stop: 03/14/18 11:02 Last Admin: 03/12/18 09:55 Dose: 250 mls/hr Piperacillin Sod/Tazobactam Sod (Zosyn) 3.375 gm in 50 mls @ 12.5 mls/hr IV Q12 [facility] Last Admin: 03/12/18 10:00 Dose: 12.5 mls/hr Sodium Chloride () 1,000 mls @ 100 mls/hr IV .Q10H [facility] Last Admin: 03/12/18 09:50 Dose: 100 mls/hr Ondansetron HCl (Zofran) 4 mg IV Q8H PRN PRN PRN Reason: NAUSEA Oxycodone HCl (Oxyir) 5 mg PO Q4H PRN PRN PRN Reason: Moderate Pain (pain scale 4-5) Polyethylene Glycol (Miralax) 17 gm PO DAILY [facility] Last Admin: 03/12/18 09:55 Dose: 17 gm Sodium Chloride () 5 - 30 ml IV UD PRN PRN Reason: SALINE FLUSH Zolpidem Tartrate (Ambien (Generic)) 5 mg PO QHS PRN PRN PRN Reason: SLEEP - Past Medical History Past Medical History (Chronic Problems): Chronic Problems COPD (chronic obstructive pulmonary disease) (Chronic) History of lung cancer (Chronic) Benign hypertension (Chronic) - Past Surgical History Surgical History: cholecystectomy, - - RLL lobectomy - Social History Smoking Status: Former smoker - Family History Paternal History Items: Dementia, Heart Disease, Hypertension, Stroke Maternal History Items: Hypertension Sibling History Items: COPD - sister, Heart Disease - 2 brothers, Hypertension - brother , sister Review of Systems Constitutional: Reports: Anorexia, Malaise, Weakness, Fatigue, - - Denied falls. Denies: Chills, Fever Eyes: Denies: Vision Change HEENT: Denies: Difficulty Hearing, Head Aches, Sore Throat Cardiovascular: Denies: Chest Pain, Edema, Light Headedness, Syncope Respiratory: Reports: Cough, Shortness of Breath, - - History of lung cancer status post right upper lobe lobectomy. Denies: Hemoptysis, Wheezing Gastrointestinal: Reports: - - Anorexia. Denies: Abdominal Pain, Constipation, Diarrhea, Nausea, Vomiting Genitourinary: Reports: Nocturia - 3 times a night. Denies: Dysuria Neurological: Denies: Balance problems, Slurred speech, Numbness, Tremor, Seizures Psychiatric: Denies: Anxiety, Depression Hematologic/ Lymphatic: Denies: Anemia, Hx of blood clot Patient Problems: Active and Suspected Problems CAP (community acquired pneumonia) (Acute) [place] CKD Stage 3 (Acute) - Physical Exam General: Alert, Oriented x3, Cooperative, No apparent distress HEENT: PERRLA, EOMI Oral: Dry Mucosa Neck: Supple, No JVD Lungs: Rales - Right lung base posteriorly Cardiovascular: Regular rate, No rub noted Abdomen: Bowel Sounds Present, Soft, Non Tender, Non-Distended Extremities: No edema, Diminished Peripheral Pulses Skin: No rashes Musculoskeletal: Muscle Wasting Neurological: Cranial nerves II-XII grossly intact Psych/Mental Status: Normal Affect, Appropriate, Alert and oriented to time, place, person, mood and affect Vital Signs Temp Pulse Resp BP Pulse Ox 98.7 F 91 18 142/86 H 99 03/12/18 04:17 03/12/18 09:34 03/12/18 09:34 03/12/18 04:17 03/12/18 09:34 Oxygen Flow Rate (L/min) 2 Oxygen Delivery Method Nasal Cannula Weight: 98.7 kg Body Mass Index (BMI) 39.8 Intake and Output for Last 24 Hours 03/10/18 03/11/18 03/12/18 23:59 23:59 23:59 Intake Total 2231 / 223 Balance 2231 / 2231 Microbiology Past 72 Hours 03/11/18 23:50 Legionella Antigen - Final Urine, Clean Catch 03/11/18 23:50 Streptococcus pneumoniae Antigen (M - Final Urine, Clean Catch 03/11/18 22:35 Influenza Types A,B Direct FA (JOSEE) - Final Mucosa - Nose 03/11/18 20:41 Gram Stain - Preliminary Sputum, Expectorated/Coughed Laboratory Tests Past 24 Hrs 03/11/18 03/11/18 03/11/18 19:00 20:20 22:00 Lactic Acid 2.9 H 2.6 H Urine Color Urine Clarity Urine pH Ur Specific [place] Urine Protein Urine Glucose (UA) Urine Ketones Urine Occult Blood Urine Nitrite Urine Bilirubin Urine Urobilinogen Ur Leukocyte Esterase MRSA (PCR) Negative 03/11/18 03/12/18 23:50 06:46 Lactic Acid 1.5 Urine Color Yellow Urine Clarity Clear Urine pH 6.0 Ur Specific [place] 1.010 Urine Protein 100 H Urine Glucose (UA) Normal Urine Ketones Negative Urine Occult Blood 25 H Urine Nitrite Negative Urine Bilirubin Negative Urine Urobilinogen Normal Ur Leukocyte Esterase 25 H MRSA (PCR) Clinical Impression(s) from Imaging Studies Chest X-Ray 03/11/18 18:15 IMPRESSION: Extensive infiltrate and/or atelectasis appearing to be in the superior segment of the right lower lobe. This is new in the interval. There may be underlying fibrotic changes as well. There is status post surgical changes of the right lower and upper lobes with associated right hemithoracic volume loss. Right costo phrenic angle blunting consistent with small effusion or pleural reaction. Calcified plaques of the aortic arch. Electronically Signed: Farhan Mathias MD at 19:27 EDT , Service support , Assessment/Plan Active and Suspected Problems CAP (community acquired pneumonia) (Acute) [place] CKD Stage 3 (Acute) 1. Acute kidney injury versus chronic kidney disease with creatinine of 5.88 on admission. Creatinine has been 0.95 in 2012 but has been as high as 3.3 2012 , 2.5 in July 2014. Kidney ultrasound from [facility] in May 2013 showed normal size kidneys bilateral hydronephrosis with cyst in the right kidney measuring 10 x 8 x 5 mm. Check kidney ultrasound this admission to evaluate for hydronephrosis and evaluate renal cyst. Continue with IV fluids. History of NSAID use recently over the weekend and in the past. Advised to avoid NSAID use in the future. Avoid nephrotoxins. Daily labs to evaluate for kidney function. Discussed with the patient possibility of needing dialysis if her renal function does not improve. 2. Acute right lower lobe pneumonia. Renal adjust antibiotic therapy 3. history of right upper lobe lobectomy for lung cancer in 2007. 4. History of hypertension off all blood pressure medications. Continue to monitor. Has been on Cozaar in the past. 5. COPD with smoking history quit 2007. Discussed with primary service.
--- NOTE | 2018-03-12 10:52 | US_ITS ---
STUDY: RENAL ULTRASOUND - COMPLETE REASON FOR EXAM: Female, 67 years old. Elevated BUN/creatinine, renal failure TECHNIQUE: Ultrasound evaluation of the kidneys was performed with real-time and static martins-scale imaging. COMPARISON: None. FINDINGS: RIGHT KIDNEY: Normal location of the right kidney, which is normal in size. The right kidney measures 13.6 x 9.2 x 7.5 cm. There is a normal cortex of the right kidney. The renal cortex measures 1.3 cm. There is no right renal mass or cyst. There are no right renal calculi. There is severe hydronephrosis of the right kidney. DISTAL RIGHT URETER: There is non-visualization of the distal right ureter. There is no demonstrated right ureterovesical junction calculus. There is a visualized right ureteral jet. LEFT KIDNEY: Normal location of the left kidney, which is normal in size. The left kidney measures 11.1 x 7.9 x 5.3 cm. There is a normal cortex of the left kidney. The renal cortex measures 0.7 cm. There is no left renal mass or cyst. There are no left renal calculi. There is no left hydronephrosis. DISTAL LEFT URETER: There is non-visualization of the distal left ureter. There is no demonstrated left ureterovesical junction calculus. There is a visualized left ureteral jet. AORTA: There is no elongation or tortuosity of the abdominal aorta. I.V.C.: The IVC is patent. BLADDER: The distended urinary bladder has a volume of 70.8 ml. There is a normal wall thickness of the distended urinary bladder. There is no demonstrated mass within the urinary bladder. There are no demonstrated bladder calculi. US/Kidney and Bladder IMPRESSION: Severe bilateral hydronephrosis of uncertain etiology. There is no demonstrated stone or mass on this study. Electronically Signed: Isiah Verma MD at 13:47 EDT , Service support ,
--- NOTE | 2018-03-12 12:01 | CASEMGMT ---
See RN CM Assessment Link. DC Plan: home on discharge. No dc needs identified @ this time. Yesy MONTOYAN RN ACM
--- NOTE | 2018-03-12 16:46 | PCM.PN.HOSP ---
Patient Problems: Active and Suspected Problems CAP (community acquired pneumonia) (Acute) [place] CKD Stage 3 (Acute) Subjective: Patient was seen and examined. She admits to having no PCP for well because her previous PCP moved out of town. Denied any fever or chills. Has less sputum production. Feels much better. Vitals/I&O's: Vital Signs Temp Pulse Resp BP Pulse Ox 97.6 F L 101 H 16 148/80 H 98 03/12/18 12:32 03/12/18 15:41 03/12/18 15:20 03/12/18 12:32 03/12/18 14:00 Oxygen Flow Rate (L/min) 2 Oxygen Delivery Method Nasal Cannula Weight: 56.1 kg Body Mass Index (BMI) 39.8 Intake and Output for Last 24 Hours 03/10/18 03/11/18 03/12/18 23:59 23:59 23:59 Intake Total 2532 / 2532 Balance 2532 / 2532 General: Alert, Oriented x3, Cooperative HEENT: Atraumatic, PERRLA, EOMI, Normocephalic Oral: Moist Mucosa Neck: Supple Lungs: Clear to auscultation, Normal air movement Cardiovascular: Regular rate, Regular Rhythm, Normal S1, Normal S2, No murmurs Abdomen: Bowel Sounds Present, Soft, Non Tender, Non-Distended, No Hepato-splenomegaly Extremities: No edema Skin: No rashes Musculoskeletal: No Tenderness to Palpation of Joints or Extremities Lymphatic: No Cervical, Supraclavicular, or Inguinal Adenopathy Neurological: Cranial nerves II-XII grossly intact, Neuro grossly intact Psych/Mental Status: Normal Affect, Appropriate Microbiology Past 72 Hours 03/11/18 20:41 Sputum, Expectorated/Coughed Gram Stain - Final 03/11/18 23:50 Urine, Clean Catch Legionella Antigen - Final 03/11/18 23:50 Urine, Clean Catch Streptococcus pneumoniae Antigen (M - Final 03/11/18 22:35 Mucosa - Nose Influenza Types A,B Direct FA (JOSEE) - Final Laboratory Results 03/11/18 19:00: Lactic Acid 2.9 H 03/11/18 20:20: MRSA (PCR) Negative 03/11/18 22:00: Lactic Acid 2.6 H 03/11/18 23:50: Urine Color Yellow, Urine Clarity Clear, Urine pH 6.0, Ur Specific [place] 1.010, Urine Protein 100 H, Urine Glucose (UA) Normal, Urine Ketones Negative, Urine Occult Blood 25 H, Urine Nitrite Negative, Urine Bilirubin Negative, Urine Urobilinogen Normal, Ur Leukocyte Esterase 25 H 03/12/18 06:46: Lactic Acid 1.5 Current Medications Acetaminophen (Tylenol) 650 mg PO Q4H PRN PRN PRN Reason: Fever/pain Al Hydroxide/Mg Hydroxide (Mylanta Ii) 30 ml PO Q6H PRN PRN PRN Reason: Gastric Burning Albuterol Sulfate (Ventolin Aerosols) 2.5 mg INHALATION Q2H PRN PRN PRN Reason: SHORTNESS OF BREATH Albuterol/Ipratropium (Duoneb) 3 ml INHALATION Q4HWA.RT [facility] Last Admin: 03/12/18 15:20 Dose: 3 ml Docusate Sodium (Colace) 200 mg PO BID PRN PRN PRN Reason: Constipation Famotidine (Pepcid) 20 mg PO BID [facility] Last Admin: 03/12/18 09:51 Dose: 20 mg Guaifenesin (Mucinex) 1,200 mg PO BID [facility] Last Admin: 03/12/18 09:51 Dose: 1,200 mg Heparin Sodium (Porcine) (Heparin Na) 5,000 unit SC Q12 [facility] Last Admin: 03/12/18 09:55 Dose: 5,000 unit Azithromycin 500 mg/ Dextrose 255 mls @ 250 mls/hr IV Q24 [facility] Stop: 03/14/18 11:02 Last Admin: 03/12/18 09:55 Dose: 250 mls/hr Piperacillin Sod/Tazobactam Sod (Zosyn) 3.375 gm in 50 mls @ 12.5 mls/hr IV Q12 [facility] Last Admin: 03/12/18 10:00 Dose: 12.5 mls/hr Sodium Chloride () 1,000 mls @ 100 mls/hr IV .Q10H [facility] Last Admin: 03/12/18 09:50 Dose: 100 mls/hr Ondansetron HCl (Zofran) 4 mg IV Q8H PRN PRN PRN Reason: NAUSEA Oxycodone HCl (Oxyir) 5 mg PO Q4H PRN PRN PRN Reason: Moderate Pain (pain scale 4-5) Polyethylene Glycol (Miralax) 17 gm PO DAILY [facility] Last Admin: 03/12/18 09:55 Dose: 17 gm Sodium Chloride () 5 - 30 ml IV UD PRN PRN Reason: SALINE FLUSH Zolpidem Tartrate (Ambien (Generic)) 5 mg PO QHS PRN PRN PRN Reason: SLEEP Medical Necessity - Tobacco Use Smoking Status: Former smoker Assessment/Plan Active and Suspected Problems CAP (community acquired pneumonia) (Acute) [place] CKD Stage 3 (Acute) 67-year-old female with past medical history of COPD, lung cancer status post right upper lobe pneumonectomy comes in with complaints of not feeling well, cough shortness of breath. 1. Severe sepsis secondary to right community-acquired pneumonia, and due to suspected atypical and gram-positive organisms, present since admission seen on chest x-ray in the right upper lobe, lactic acid improved to 1.5, cultures pending, urine streptococcal and Legionella antigen are negative . patient's vitals are stable, sepsis appears to be improved, on IV Zosyn and azithromycin, MRSA PCR is negative, will de-escalate to IV ceftriaxone and azithromycin 2. Acute respiratory insufficiency/hypoxia secondary to right community-acquired pneumonia, in a patient with primary lung cancer status post right upper lobe pneumonectomy, patient is off oxygen, encourage use of incentive spirometer and pickle, will continue to monitor for SPO2 more than 94%. 3. Acute kidney injury likely secondary to post renal, renal ultrasound shows severe right hydronephrosis, nephrology consulted, will also consult urology, Place Yarbrough catheter for strict I's and O's, repeat BMP in a.m. 4. Hypertension, controlled, not on any medication, will continue to monitor 5. Chronic moderate protein calorie malnutrition, separations scientist consulted. 6. COPD, not in acute exacerbation 7. DVT prophylaxis with heparin subcu Code Visit Inpatient E&M: 76435 Init Hosp L3
--- NOTE | 2018-03-12 16:57 | PN_ITS ---
Patient Problems: Active and Suspected Problems CAP (community acquired pneumonia) (Acute) [place] CKD Stage 3 (Acute) Subjective: Patient was seen and examined. She admits to having no PCP for well because her previous PCP moved out of town. Denied any fever or chills. Has less sputum production. Feels much better. Vitals/I&O's: Vital Signs Temp Pulse Resp BP Pulse Ox 97.6 F L 101 H 16 148/80 H 98 03/12/18 12:32 03/12/18 15:41 03/12/18 15:20 03/12/18 12:32 03/12/18 14:00 Oxygen Flow Rate (L/min) 2 Oxygen Delivery Method Nasal Cannula Weight: 56.1 kg Body Mass Index (BMI) 39.8 Intake and Output for Last 24 Hours 03/10/18 03/11/18 03/12/18 23:59 23:59 23:59 Intake Total 2532 / 2532 Balance 2532 / 2532 General: Alert, Oriented x3, Cooperative HEENT: Atraumatic, PERRLA, EOMI, Normocephalic Oral: Moist Mucosa Neck: Supple Lungs: Clear to auscultation, Normal air movement Cardiovascular: Regular rate, Regular Rhythm, Normal S1, Normal S2, No murmurs Abdomen: Bowel Sounds Present, Soft, Non Tender, Non-Distended, No Hepato- splenomegaly Extremities: No edema Skin: No rashes Musculoskeletal: No Tenderness to Palpation of Joints or Extremities Lymphatic: No Cervical, Supraclavicular, or Inguinal Adenopathy Neurological: Cranial nerves II-XII grossly intact, Neuro grossly intact Psych/Mental Status: Normal Affect, Appropriate Microbiology Past 72 Hours 03/11/18 20:41 Sputum, Expectorated/Coughed Gram Stain - Final 03/11/18 23:50 Urine, Clean Catch Legionella Antigen - Final 03/11/18 23:50 Urine, Clean Catch Streptococcus pneumoniae Antigen (M - Final 03/11/18 22:35 Mucosa - Nose Influenza Types A,B Direct FA (JOSEE) - Final Laboratory Results 03/11/18 19:00: Lactic Acid 2.9 H 03/11/18 20:20: MRSA (PCR) Negative 03/11/18 22:00: Lactic Acid 2.6 H 03/11/18 23:50: Urine Color Yellow, Urine Clarity Clear, Urine pH 6.0, Ur Specific [place] 1.010, Urine Protein 100 H, Urine Glucose (UA) Normal, Urine Ketones Negative, Urine Occult Blood 25 H, Urine Nitrite Negative, Urine Bilirubin Negative, Urine Urobilinogen Normal, Ur Leukocyte Esterase 25 H 03/12/18 06:46: Lactic Acid 1.5 Current Medications Acetaminophen (Tylenol) 650 mg PO Q4H PRN PRN PRN Reason: Fever/pain Al Hydroxide/Mg Hydroxide (Mylanta Ii) 30 ml PO Q6H PRN PRN PRN Reason: Gastric Burning Albuterol Sulfate (Ventolin Aerosols) 2.5 mg INHALATION Q2H PRN PRN PRN Reason: SHORTNESS OF BREATH Albuterol/Ipratropium (Duoneb) 3 ml INHALATION Q4HWA.RT [facility] Last Admin: 03/12/18 15:20 Dose: 3 ml Docusate Sodium (Colace) 200 mg PO BID PRN PRN PRN Reason: Constipation Famotidine (Pepcid) 20 mg PO BID [facility] Last Admin: 03/12/18 09:51 Dose: 20 mg Guaifenesin (Mucinex) 1,200 mg PO BID [facility] Last Admin: 03/12/18 09:51 Dose: 1,200 mg Heparin Sodium (Porcine) (Heparin Na) 5,000 unit SC Q12 [facility] Last Admin: 03/12/18 09:55 Dose: 5,000 unit Azithromycin 500 mg/ Dextrose 255 mls @ 250 mls/hr IV Q24 [facility] Stop: 03/14/18 11:02 Last Admin: 03/12/18 09:55 Dose: 250 mls/hr Piperacillin Sod/Tazobactam Sod (Zosyn) 3.375 gm in 50 mls @ 12.5 mls/hr IV Q12 [facility] Last Admin: 03/12/18 10:00 Dose: 12.5 mls/hr Sodium Chloride () 1,000 mls @ 100 mls/hr IV .Q10H [facility] Last Admin: 03/12/18 09:50 Dose: 100 mls/hr Ondansetron HCl (Zofran) 4 mg IV Q8H PRN PRN PRN Reason: NAUSEA Oxycodone HCl (Oxyir) 5 mg PO Q4H PRN PRN PRN Reason: Moderate Pain (pain scale 4-5) Polyethylene Glycol (Miralax) 17 gm PO DAILY [facility] Last Admin: 03/12/18 09:55 Dose: 17 gm Sodium Chloride () 5 - 30 ml IV UD PRN PRN Reason: SALINE FLUSH Zolpidem Tartrate (Ambien (Generic)) 5 mg PO QHS PRN PRN PRN Reason: SLEEP Medical Necessity - Tobacco Use Smoking Status: Former smoker Assessment/Plan Active and Suspected Problems CAP (community acquired pneumonia) (Acute) [place] CKD Stage 3 (Acute) 67-year-old female with past medical history of COPD, lung cancer status post right upper lobe pneumonectomy comes in with complaints of not feeling well, cough shortness of breath. 1. Severe sepsis secondary to right community-acquired pneumonia, and due to suspected atypical and gram-positive organisms, present since admission seen on chest x-ray in the right upper lobe, lactic acid improved to 1.5, cultures pending, urine streptococcal and Legionella antigen are negative . patient's vitals are stable, sepsis appears to be improved, on IV Zosyn and azithromycin, MRSA PCR is negative, will de-escalate to IV ceftriaxone and azithromycin 2. Acute respiratory insufficiency/hypoxia secondary to right community- acquired pneumonia, in a patient with primary lung cancer status post right upper lobe pneumonectomy, patient is off oxygen, encourage use of incentive spirometer and pickle, will continue to monitor for SPO2 more than 94%. 3. Acute kidney injury likely secondary to post renal, renal ultrasound shows severe right hydronephrosis, nephrology consulted, will also consult urology, Place Yarbrough catheter for strict I's and O's, repeat BMP in a.m. 4. Hypertension, controlled, not on any medication, will continue to monitor 5. Chronic moderate protein calorie malnutrition, clin application specialist consulted. 6. COPD, not in acute exacerbation 7. DVT prophylaxis with heparin subcu Code Visit Inpatient E&M: 82395 Init Hosp L3
--- NOTE | 2018-03-12 16:59 | CT_ITS ---
STUDY: CT ABDOMEN AND PELVIS WITHOUT CONTRAST REASON FOR EXAM: Female, 67 years old. Severe sepsis, dysuria, acute kidney injury, lung cancer RADIATION DOSAGE (If Supplied By Facility): CTDIvol = ( 6.58 ) mGy, DLP = ( 377.77 ) mGycm TECHNIQUE: Transaxial images were obtained from the dome of the diaphragm to the symphysis pubis without oral contrast, and without intravenous contrast. Sagittal and coronal images were reconstructed. Individualized dose optimization techniques were used for this CT. COMPARISON: May 07, 2013. FINDINGS: There is a right lower lobe consolidation. The visualized portions of the heart are within normal limits. Normal liver. Nonvisualization of the gallbladder. No significant dilatation of extrahepatic biliary system. Granulomatous calcifications in the spleen. Normal pancreas. Normal bilateral adrenal glands. Normal right kidney. Significant hydronephrosis of the left kidney with left hydroureter. Cortical thinning of the right kidney. Normal visualized stomach. Normal small intestine. Diverticulosis of the colon. The appendix is not visualized. Calcified abdominal aorta. Normal inferior vena cava. Normal retroperitoneum. Normal urinary bladder. Small fatty umbilical hernia of the abdominal wall. Normal osseous structures. CT/Abdomen/Pelvis without Cont IMPRESSION: Left hydronephrosis and hydroureter with cortical thinning of the left kidney. This may be chronic in nature. Small fatty umbilical hernia. Right lower lobe consolidation. Electronically Signed: Tobi Diaz DO at 19:19 EDT Tel [phone], Service support ,
--- NOTE | 2018-03-12 17:58 | PCM.CONS.U ---
Reason for Consult Date of Consultation: 03/12/18 Reason for Consultation: poor renal function History of Present Illness: The patient is a 67 year old Female admitted for infection, pneumonia found have b/l hydronephrosis, elevated cr on admission going to get a ct abd/pelvis today Past Medical History Past Medical History (Chronic Problems): Chronic Problems COPD (chronic obstructive pulmonary disease) (Chronic) History of lung cancer (Chronic) Benign hypertension (Chronic) Allergies erythromycin base [Erythromycin Base] Adverse Reaction (Verified 03/11/18 17:05) Nausea Home Medications: Ambulatory Orders Medication Instructions Recorded NK [NK] 03/11/18 Surgical History: cholecystectomy, - - RLL lobectomy Smoking Status: Former smoker Tobacco Use: Non-smoker Alcohol: None Drugs: None - *Family History Paternal History Items: Dementia, Heart Disease, Hypertension, Stroke Maternal History Items: Hypertension Sibling History Items: COPD - sister, Heart Disease - 2 brothers, Hypertension - brother, sister Review of Systems Constitutional: Reports: Anorexia. Denies: Chills, Fever, Weight Change HEENT: Denies: Head Aches, Sinus Congestion, Sinus Drainage Cardiovascular: Reports: Chest Pain Respiratory: Reports: Shortness of breath upon exertion, Wheezing Gastrointestinal: Denies: Abdominal Pain, Nausea, Vomiting Genitourinary: Reports: Incontinence Musculoskeletal: Denies: Joint Pain, Joint Tenderness Skin: Denies: Rash, Wounds Neurological: Denies: Numbness, Tingling, Focal weakness Psychiatric: Denies: Anxiety, Depression, Homicidal Ideations, Suicidal Ideations Hematologic/ Lymphatic: Denies: Easy Bruising, Easy Bleeding Physical Exam - Physical Exam Vital Signs Temp 97.6 F L 03/12/18 12:32 Pulse 101 H 03/12/18 15:41 Resp 16 03/12/18 15:20 BP 148/80 H 03/12/18 12:32 Pulse Ox 98 03/12/18 14:00 Intake & Output 03/10/18 03/11/18 03/12/18 23:59 23:59 23:59 Intake Total 2531 / 2 Balance 2531 / 2531 Weight: 98.7 kg 56.1 kg Intake: Oral 960 / 960 IV fluid/meds 1572 / 1572 Other: Number of Voids 1 Incontinent Amount Moderate General: Alert, Oriented x3 HEENT: Atraumatic Oral: Moist Mucosa Neck: Supple Lungs: Normal air movement Abdomen: Bowel Sounds Present, Soft Microbiology Past 72 Hours 03/11/18 20:41 Gram Stain - Final Sputum, Expectorated/Coughed 03/11/18 23:50 Legionella Antigen - Final Urine, Clean Catch 03/11/18 23:50 Streptococcus pneumoniae Antigen (M - Final Urine, Clean Catch 03/11/18 22:35 Influenza Types A,B Direct FA (JOSEE) - Final Mucosa - Nose Laboratory Tests Past 24 Hrs 03/11/18 03/11/18 03/11/18 19:00 20:20 22:00 Lactic Acid 2.9 H 2.6 H Urine Color Urine Clarity Urine pH Ur Specific [place] Urine Protein Urine Glucose (UA) Urine Ketones Urine Occult Blood Urine Nitrite Urine Bilirubin Urine Urobilinogen Ur Leukocyte Esterase MRSA (PCR) Negative 03/11/18 03/12/18 23:50 06:46 Lactic Acid 1.5 Urine Color Yellow Urine Clarity Clear Urine pH 6.0 Ur Specific [place] 1.010 Urine Protein 100 H Urine Glucose (UA) Normal Urine Ketones Negative Urine Occult Blood 25 H Urine Nitrite Negative Urine Bilirubin Negative Urine Urobilinogen Normal Ur Leukocyte Esterase 25 H MRSA (PCR) Assessment/Plan Active and Suspected Problems CAP (community acquired pneumonia) (Acute) [place] CKD Stage 3 (Acute) recommend we get a ct scan abd/pelvis stone protocol may needs stents b/l to improve renal function aprrently hydronephrosis is not new had prior u/s with hydro unclear what the work up was before? will see what ct scan shows, plan for stents on monday hopefully will help but explained that possible may need dialysis even if has stents placed? renal cortex looks very thin on u/'s of kidneys.
[2018-03-12] MEDS: Ceftriaxone 1 GM/50 ML BAG IV (19:12)
[2018-03-12 19:37] LABS: Urine Sodium 37 mmol/L (Not Establ.)
[2018-03-13] VITALS (14 sets, daily range): BP systolic 139–168; BP diastolic 71–80; PULSE 97–121; RESP 16–22; TEMP 36.3–36.6; O2SAT 93–98
[2018-03-13 07:14] LABS: Albumin, Serum 2.4 g/dL (3.2-5.0); BUN 95 mg/dL (7-18); BUN/Creat Ratio 18.4 RATIO (10-20); Calcium,Total 8.6 mg/dL (8.5-10.1); Chloride 109 mmol/L (98-107); Creatinine, Serum 5.17 mg/dL (0.55-1.02); EST Glomerular Filtration Rate 9 mL/min (>60); Est Glom Filt Rate - Afr Amer 11 mL/min (>60); Estimated Creatinine Clearance 8.58 ml/min; Glucose 155 mg/dL (74-106); Phosphorus 5.3 mg/dL (2.5-4.9); Potassium 3.3 mmol/L (3.5-5.1); Sodium Level 137 mmol/L (136-145)
--- NOTE | 2018-03-13 07:15 | CON.PCM_ITS ---
Reason for Consult Date of Consultation: 03/13/18 Reason for Consultation: Follow-up on CT scan History of Present Illness: The patient is a 67 year old female who presented to the hospital with acute renal failure creatinine up to 5.8 ultrasound with bilateral hydronephrosis CT scan reviewed today that she had yesterday she has significant hydronephrosis in the left side she has some mild hydronephrosis in the right side cortical thinning in both kidneys. Creatinine today is pending but I think given the findings and chronic renal insufficiency we will add her on for the schedule for cystoscopy bilateral stents for tomorrow Past Medical History Past Medical History (Chronic Problems): Chronic Problems COPD (chronic obstructive pulmonary disease) (Chronic) History of lung cancer (Chronic) Benign hypertension (Chronic) Allergies erythromycin base [Erythromycin Base] Adverse Reaction (Verified 03/11/18 17:05) Nausea Home Medications: Ambulatory Orders Medication Instructions Recorded NK [NK] 03/11/18 Surgical History: cholecystectomy, - - RLL lobectomy Smoking Status: Former smoker Tobacco Use: Non-smoker Alcohol: None Drugs: None - *Family History Paternal History Items: Dementia, Heart Disease, Hypertension, Stroke Maternal History Items: Hypertension Sibling History Items: COPD - sister, Heart Disease - 2 brothers, Hypertension - brother , sister Physical Exam - Physical Exam Vital Signs Temp 97.8 F 03/13/18 04:00 Pulse 102 H 03/13/18 04:00 Resp 16 03/13/18 04:00 BP 139/80 H 03/13/18 04:00 Pulse Ox 94 03/13/18 04:00 Intake & Output 03/11/18 03/12/18 03/13/18 23:59 23:59 23:59 Intake Total 3823 / 3823 665 / 665 Output Total 400 / 400 150 / 150 Balance 3423 / 3423 515 / 515 Weight: 98.7 kg 56.1 kg Intake: Oral 1480 / 1480 IV fluid/meds 2343 / 2343 665 / 665 Output: Urine 400 / 400 150 / 150 Other: Number of Voids 1 Incontinent Amount Moderate General: Alert, Oriented x3 Microbiology Past 72 Hours 03/11/18 20:41 Gram Stain - Final Sputum, Expectorated/Coughed 03/11/18 23:50 Legionella Antigen - Final Urine, Clean Catch 03/11/18 23:50 Streptococcus pneumoniae Antigen (M - Final Urine, Clean Catch 03/11/18 22:35 Influenza Types A,B Direct FA ([facility]) - Final Mucosa - Nose Laboratory Tests Past 24 Hrs 03/12/18 03/12/18 03/12/18 06:46 18:30 18:30 Sodium Potassium Chloride Carbon Dioxide BUN Creatinine Est GFR (MDRD) Af Amer Est GFR (MDRD) Non-Af BUN/Creatinine Ratio Glucose Lactic Acid 1.5 Calcium Phosphorus Albumin Ur Random Sodium 37 Urine Creatinine 48.10 03/13/18 06:30 Sodium Pending Potassium Pending Chloride Pending Carbon Dioxide Pending BUN Pending Creatinine Pending Est GFR (MDRD) Af Amer Pending Est GFR (MDRD) Non-Af Pending BUN/Creatinine Ratio Pending Glucose Pending Lactic Acid Calcium Pending Phosphorus Pending Albumin Pending Ur Random Sodium Urine Creatinine Assessment/Plan Active and Suspected Problems CAP (community acquired pneumonia) (Acute) [place] CKD Stage 3 (Acute) add on for cysto b/l stent tomorrow.
[2018-03-13] MEDS: Ipratropium/Albuterol Sulfate 3 ML AMPUL.NEB INHALATION ×4 (07:49→19:40)
[2018-03-13] MEDS: Ceftriaxone 1 GM/50 ML BAG IV ×2 (09:35→22:58)
[2018-03-13] MEDS: Famotidine 20 MG Tablet PO ×2 (09:36→22:51)
[2018-03-13] MEDS: guaiFENesin 1,200 MG Tablet 1200 MG PO ×2 (09:36→22:51)
[2018-03-13] MEDS: Heparin Injection (Vial) 5,000 UNIT/ML VIAL 5000 UNIT SC ×2 (09:36→22:50)
[2018-03-13] MEDS: Polyethylene Glycol 3350 17 GM PACKET PO (09:41)
[2018-03-13] MEDS: 0.9% Normal Saline 1,000 ML 100 ML IV (11:02)
--- NOTE | 2018-03-13 13:14 | PCM.PN.REN ---
Patient Problems: Active and Suspected Problems CAP (community acquired pneumonia) (Acute) [place] CKD Stage 3 (Acute) Subjective: cough improving, denies nausea, vomiting, flank pain. Creatinine slightly improved with iv fluids. Reviewed renal US findings. Yarbrough catheter placed. States has history of bladder prolapse. - Physical Exam General: Alert, Oriented x3, Cooperative Oral: Moist Mucosa Neck: Supple Lungs: Rales - rt base Cardiovascular: Regular rate Abdomen: Bowel Sounds Present, Soft, Non Tender, Non-Distended Extremities: No edema Musculoskeletal: No Tenderness to Palpation of Joints or Extremities Neurological: Cranial nerves II-XII grossly intact, - - no tremor Psych/Mental Status: Normal Affect, Appropriate, Alert and oriented to time, place, person, mood and affect Vital Signs Temp Pulse Resp BP Pulse Ox 97.4 F L 99 16 150/74 H 96 03/13/18 09:43 03/13/18 11:08 03/13/18 11:08 03/13/18 09:43 03/13/18 09:43 Oxygen Flow Rate (L/min) 2 Oxygen Delivery Method Room Air Weight: 56.1 kg Body Mass Index (BMI) 39.8 Intake and Output for Last 24 Hours 03/11/18 03/12/18 03/13/18 23:59 23:59 23:59 Intake Total 3823 / 3823 1939 / 1939 Output Total 400 / 400 625 / 625 Balance 3423 / 3423 1314 / 1314 Microbiology Past 72 Hours 03/11/18 20:41 Gram Stain - Final Sputum, Expectorated/Coughed 03/11/18 23:50 Legionella Antigen - Final Urine, Clean Catch 03/11/18 23:50 Streptococcus pneumoniae Antigen (M - Final Urine, Clean Catch 03/11/18 22:35 Influenza Types A,B Direct FA ([facility]) - Final Mucosa - Nose Laboratory Tests Past 24 Hrs 03/12/18 03/12/18 03/13/18 18:30 18:30 06:30 Sodium 137 Potassium 3.3 L Chloride 109 H Carbon Dioxide 12.0 L BUN 95 H Creatinine 5.17 H Estim Creat Clear Calc 8.58 Est GFR (MDRD) Af Amer 11 L Est GFR (MDRD) Non-Af 9 L BUN/Creatinine Ratio 18.4 Glucose 155 H Calcium 8.6 Phosphorus 5.3 H Albumin 2.4 L Ur Random Sodium 37 Urine Creatinine 48.10 Clinical Impression(s) from Imaging Studies Renal Ultrasound 03/12/18 10:52 IMPRESSION: Severe bilateral hydronephrosis of uncertain etiology. There is no demonstrated stone or mass on this study. Electronically Signed: Isiah Verma MD at 13:47 EDT , Service support , Abdomen/Pelvis CT 03/12/18 16:59 IMPRESSION: Left hydronephrosis and hydroureter with cortical thinning of the left kidney. This may be chronic in nature. Small fatty umbilical hernia. Right lower lobe consolidation. Electronically Signed: Tobi Diaz DO at 19:19 EDT Tel [phone], Service support , ADDENDUM: 03/12/18 1930 Medical Necessity - Tobacco Use Smoking Status: Former smoker Tobacco Use: Non-smoker Assessment/Plan Active and Suspected Problems CAP (community acquired pneumonia) (Acute) [place] CKD Stage 3 (Acute) 1. Acute kidney injury versus chronic kidney disease with creatinine of 5.88 on admission improved to 5.17 today. Creatinine has been 0.95 in 2012 but has been as high as 3.3 in 2012, 2.5 in July 2014. Kidney ultrasound from [facility] in May 2013 showed normal size kidneys bilateral hydronephrosis with cyst in the right kidney measuring 10 x 8 x 5 mm. Renal US from this admit with bilateral hydro. consulted. 2. Acute right lower lobe pneumonia. Renal adjust antibiotic therapy 3. history of right upper lobe lobectomy for lung cancer in 2007. 4. History of hypertension off all blood pressure medications prior to admit. Continue to monitor. Has been on Cozaar in the past. start amlodipine 5. COPD with smoking history quit 2007. Discussed with primary service.
--- NOTE | 2018-03-13 13:17 | PN.RENAL_ITS ---
Patient Problems: Active and Suspected Problems CAP (community acquired pneumonia) (Acute) [place] CKD Stage 3 (Acute) Subjective: cough improving, denies nausea, vomiting, flank pain. Creatinine slightly improved with iv fluids. Reviewed renal US findings. Yarbrough catheter placed. States has history of bladder prolapse. - Physical Exam General: Alert, Oriented x3, Cooperative Oral: Moist Mucosa Neck: Supple Lungs: Rales - rt base Cardiovascular: Regular rate Abdomen: Bowel Sounds Present, Soft, Non Tender, Non-Distended Extremities: No edema Musculoskeletal: No Tenderness to Palpation of Joints or Extremities Neurological: Cranial nerves II-XII grossly intact, - - no tremor Psych/Mental Status: Normal Affect, Appropriate, Alert and oriented to time, place, person, mood and affect Vital Signs Temp Pulse Resp BP Pulse Ox 97.4 F L 99 16 150/74 H 96 03/13/18 09:43 03/13/18 11:08 03/13/18 11:08 03/13/18 09:43 03/13/18 09:43 Oxygen Flow Rate (L/min) 2 Oxygen Delivery Method Room Air Weight: 56.1 kg Body Mass Index (BMI) 39.8 Intake and Output for Last 24 Hours 03/11/18 03/12/18 03/13/18 23:59 23:59 23:59 Intake Total 3823 / 3823 1939 / 1939 Output Total 400 / 400 625 / 625 Balance 3423 / 3423 1314 / 1314 Microbiology Past 72 Hours 03/11/18 20:41 Gram Stain - Final Sputum, Expectorated/Coughed 03/11/18 23:50 Legionella Antigen - Final Urine, Clean Catch 03/11/18 23:50 Streptococcus pneumoniae Antigen (M - Final Urine, Clean Catch 03/11/18 22:35 Influenza Types A,B Direct FA (JOSEE) - Final Mucosa - Nose Laboratory Tests Past 24 Hrs 03/12/18 03/12/18 03/13/18 18:30 18:30 06:30 Sodium 137 Potassium 3.3 L Chloride 109 H Carbon Dioxide 12.0 L BUN 95 H Creatinine 5.17 H Estim Creat Clear Calc 8.58 Est GFR (MDRD) Af Amer 11 L Est GFR (MDRD) Non-Af 9 L BUN/Creatinine Ratio 18.4 Glucose 155 H Calcium 8.6 Phosphorus 5.3 H Albumin 2.4 L Ur Random Sodium 37 Urine Creatinine 48.10 Clinical Impression(s) from Imaging Studies Renal Ultrasound 03/12/18 10:52 IMPRESSION: Severe bilateral hydronephrosis of uncertain etiology. There is no demonstrated stone or mass on this study. Electronically Signed: Isiah Verma MD at 13:47 EDT , Service support , Abdomen/Pelvis CT 03/12/18 16:59 IMPRESSION: Left hydronephrosis and hydroureter with cortical thinning of the left kidney. This may be chronic in nature. Small fatty umbilical hernia. Right lower lobe consolidation. Electronically Signed: Tobi Diaz DO at 19:19 EDT Tel [phone], Service support , ADDENDUM: 03/12/18 1930 Medical Necessity - Tobacco Use Smoking Status: Former smoker Tobacco Use: Non-smoker Assessment/Plan Active and Suspected Problems CAP (community acquired pneumonia) (Acute) [place] CKD Stage 3 (Acute) 1. Acute kidney injury versus chronic kidney disease with creatinine of 5.88 on admission improved to 5.17 today. Creatinine has been 0.95 in 2012 but has been as high as 3.3 in 2012, 2.5 in July 2014. Kidney ultrasound from [facility] in May 2013 showed normal size kidneys bilateral hydronephrosis with cyst in the right kidney measuring 10 x 8 x 5 mm. Renal US from this admit with bilateral hydro. consulted. 2. Acute right lower lobe pneumonia. Renal adjust antibiotic therapy 3. history of right upper lobe lobectomy for lung cancer in 2007. 4. History of hypertension off all blood pressure medications prior to admit. Continue to monitor. Has been on Cozaar in the past. start amlodipine 5. COPD with smoking history quit 2007. Discussed with primary service.
--- NOTE | 2018-03-13 14:05 | PCM.PN.HOSP ---
Patient Problems: Active and Suspected Problems CAP (community acquired pneumonia) (Acute) [place] CKD Stage 3 (Acute) Subjective: Patient was seen and examined. Feels much better. Off oxygen. Yarbrough catheter in situ. Denies any fever or chills or shortness of breath or abdominal pain. Urology consulted, notes reviewed, aware of plan for cystoscopy tomorrow and possible stent placement. Objective: Physical exam: General: Alert, Oriented x3, Cooperative, not pale, not jaundiced, well hydrated HEENT: Atraumatic, PERRLA, EOMI, Normocephalic Oral: Moist Mucosa Neck: Supple Lungs: Clear to auscultation, Normal air movement Cardiovascular: Regular rate, Regular Rhythm, Normal S1, Normal S2, No murmurs Abdomen: Bowel Sounds Present, Soft, Non Tender, Non-Distended, No Hepato-splenomegaly Extremities: No edema Skin: No rashes Musculoskeletal: No Tenderness to Palpation of Joints or Extremities Lymphatic: No Cervical, Supraclavicular, or Inguinal Adenopathy Neurological: Cranial nerves II-XII grossly intact, Neuro grossly intact Psych/Mental Status: Normal Affect, Appropriate Vitals/I&O's: Vital Signs Temp Pulse Resp BP Pulse Ox 97.4 F L 99 16 150/74 H 96 03/13/18 09:43 03/13/18 11:08 03/13/18 11:08 03/13/18 09:43 03/13/18 09:43 Oxygen Flow Rate (L/min) 2 Oxygen Delivery Method Room Air Weight: 56.1 kg Body Mass Index (BMI) 39.8 Intake and Output for Last 24 Hours 03/11/18 03/12/18 03/13/18 23:59 23:59 23:59 Intake Total 3823 / 3823 1939 / 1939 Output Total 400 / 400 625 / 625 Balance 3423 / 3423 1314 / 1314 Microbiology Past 72 Hours 03/11/18 20:41 Sputum, Expectorated/Coughed Gram Stain - Final 03/11/18 23:50 Urine, Clean Catch Legionella Antigen - Final 03/11/18 23:50 Urine, Clean Catch Streptococcus pneumoniae Antigen (M - Final 03/11/18 22:35 Mucosa - Nose Influenza Types A,B Direct FA (JOSEE) - Final Laboratory Results 03/12/18 18:30: Urine Creatinine 48.10 03/12/18 18:30: Ur Random Sodium 37 03/13/18 06:30: Sodium 137, Potassium 3.3 L, Chloride 109 H, Carbon Dioxide 12.0 L, BUN 95 H, Creatinine 5.17 H, Estim Creat Clear Calc 8.58, Est GFR (MDRD) Af Amer 11 L, Est GFR (MDRD) Non-Af 9 L, BUN/Creatinine Ratio 18.4, Glucose 155 H, Calcium 8.6, Phosphorus 5.3 H, Albumin 2.4 L Current Medications Acetaminophen (Tylenol) 650 mg PO Q4H PRN PRN PRN Reason: Fever/pain Al Hydroxide/Mg Hydroxide (Mylanta Ii) 30 ml PO Q6H PRN PRN PRN Reason: Gastric Burning Albuterol Sulfate (Ventolin Aerosols) 2.5 mg INHALATION Q2H PRN PRN PRN Reason: SHORTNESS OF BREATH Albuterol/Ipratropium (Duoneb) 3 ml INHALATION Q4HWA.RT [facility] Last Admin: 03/13/18 11:08 Dose: 3 ml Amlodipine Besylate (Norvasc) 5 mg PO DAILY [facility] Docusate Sodium (Colace) 200 mg PO BID PRN PRN PRN Reason: Constipation Famotidine (Pepcid) 20 mg PO BID [facility] Last Admin: 03/13/18 09:36 Dose: 20 mg Guaifenesin (Mucinex) 1,200 mg PO BID [facility] Last Admin: 03/13/18 09:36 Dose: 1,200 mg Heparin Sodium (Porcine) (Heparin Na) 5,000 unit SC Q12 [facility] Last Admin: 03/13/18 09:36 Dose: 5,000 unit Azithromycin 500 mg/ Dextrose 255 mls @ 250 mls/hr IV Q24 [facility] Stop: 03/14/18 11:02 Last Admin: 03/13/18 11:02 Dose: 250 mls/hr Sodium Chloride () 1,000 mls @ 100 mls/hr IV .Q10H [facility] Last Admin: 03/13/18 11:02 Dose: 100 mls/hr Ceftriaxone Sodium (Rocephin) 1 gm in 50 mls @ 100 mls/hr IV Q12 [facility] Last Admin: 03/13/18 09:35 Dose: 100 mls/hr Ondansetron HCl (Zofran) 4 mg IV Q8H PRN PRN PRN Reason: NAUSEA Oxycodone HCl (Oxyir) 5 mg PO Q4H PRN PRN PRN Reason: Moderate Pain (pain scale 4-5) Polyethylene Glycol (Miralax) 17 gm PO DAILY [facility] Last Admin: 03/13/18 09:41 Dose: 17 gm Sodium Chloride () 5 - 30 ml IV UD PRN PRN Reason: SALINE FLUSH Zolpidem Tartrate (Ambien (Generic)) 5 mg PO QHS PRN PRN PRN Reason: SLEEP Medical Necessity - Tobacco Use Smoking Status: Former smoker Tobacco Use: Non-smoker Assessment/Plan Active and Suspected Problems CAP (community acquired pneumonia) (Acute) [place] CKD Stage 3 (Acute) 67-year-old female with past medical history of COPD, lung cancer status post right upper lobe pneumonectomy comes in with complaints of not feeling well, cough shortness of breath. 1. Severe sepsis secondary to right community-acquired pneumonia, and due to suspected atypical and gram-positive organisms, present since admission seen on chest x-ray in the right upper lobe, urine streptococcal and Legionella antigen are negative. Blood cultures pending. On ceftriaxone and azithromycin 2. Acute respiratory insufficiency/hypoxia secondary to right community-acquired pneumonia, in a patient with primary lung cancer status post right upper lobe pneumonectomy, resolved, off oxygen,encourage use of incentive spirometer and pickle, will continue to monitor for SPO2 more than 94%. 3. Acute kidney injury likely secondary to post renal, renal ultrasound shows severe right hydronephrosis, nephrology urology consulted, slight improvement in creatinine, going for cystoscopy with possible stent placement tomorrow, will continue to follow with BMP 4. Hypertension, uncontrolled, started on amlodipine 5 mg daily, continue to monitor 5. 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 6. COPD, not in acute exacerbation 7. DVT prophylaxis with heparin subcu Code Visit Inpatient E&M: 60108 Subs Hosp L3
[2018-03-13] MEDS: amLODIPine 5 MG Tablet PO (14:07)
--- NOTE | 2018-03-13 14:10 | PN_ITS ---
Patient Problems: Active and Suspected Problems CAP (community acquired pneumonia) (Acute) [place] CKD Stage 3 (Acute) Subjective: Patient was seen and examined. Feels much better. Off oxygen. Yarbrough catheter in situ. Denies any fever or chills or shortness of breath or abdominal pain. Urology consulted, notes reviewed, aware of plan for cystoscopy tomorrow and possible stent placement. Objective: Physical exam: General: Alert, Oriented x3, Cooperative, not pale, not jaundiced, well hydrated HEENT: Atraumatic, PERRLA, EOMI, Normocephalic Oral: Moist Mucosa Neck: Supple Lungs: Clear to auscultation, Normal air movement Cardiovascular: Regular rate, Regular Rhythm, Normal S1, Normal S2, No murmurs Abdomen: Bowel Sounds Present, Soft, Non Tender, Non-Distended, No Hepato- splenomegaly Extremities: No edema Skin: No rashes Musculoskeletal: No Tenderness to Palpation of Joints or Extremities Lymphatic: No Cervical, Supraclavicular, or Inguinal Adenopathy Neurological: Cranial nerves II-XII grossly intact, Neuro grossly intact Psych/Mental Status: Normal Affect, Appropriate Vitals/I&O's: Vital Signs Temp Pulse Resp BP Pulse Ox 97.4 F L 99 16 150/74 H 96 03/13/18 09:43 03/13/18 11:08 03/13/18 11:08 03/13/18 09:43 03/13/18 09:43 Oxygen Flow Rate (L/min) 2 Oxygen Delivery Method Room Air Weight: 56.1 kg Body Mass Index (BMI) 39.8 Intake and Output for Last 24 Hours 03/11/18 03/12/18 03/13/18 23:59 23:59 23:59 Intake Total 3823 / 3823 1939 / 1939 Output Total 400 / 400 625 / 625 Balance 3423 / 3423 1314 / 1314 Microbiology Past 72 Hours 03/11/18 20:41 Sputum, Expectorated/Coughed Gram Stain - Final 03/11/18 23:50 Urine, Clean Catch Legionella Antigen - Final 03/11/18 23:50 Urine, Clean Catch Streptococcus pneumoniae Antigen (M - Final 03/11/18 22:35 Mucosa - Nose Influenza Types A,B Direct FA (JOSEE) - Final Laboratory Results 03/12/18 18:30: Urine Creatinine 48.10 03/12/18 18:30: Ur Random Sodium 37 03/13/18 06:30: Sodium 137, Potassium 3.3 L, Chloride 109 H, Carbon Dioxide 12.0 L, BUN 95 H, Creatinine 5.17 H, Estim Creat Clear Calc 8.58, Est GFR (MDRD ) Af Amer 11 L, Est GFR (MDRD) Non-Af 9 L, BUN/Creatinine Ratio 18.4, Glucose 155 H, Calcium 8.6, Phosphorus 5.3 H, Albumin 2.4 L Current Medications Acetaminophen (Tylenol) 650 mg PO Q4H PRN PRN PRN Reason: Fever/pain Al Hydroxide/Mg Hydroxide (Mylanta Ii) 30 ml PO Q6H PRN PRN PRN Reason: Gastric Burning Albuterol Sulfate (Ventolin Aerosols) 2.5 mg INHALATION Q2H PRN PRN PRN Reason: SHORTNESS OF BREATH Albuterol/Ipratropium (Duoneb) 3 ml INHALATION Q4HWA.RT [facility] Last Admin: 03/13/18 11:08 Dose: 3 ml Amlodipine Besylate (Norvasc) 5 mg PO DAILY [facility] Docusate Sodium (Colace) 200 mg PO BID PRN PRN PRN Reason: Constipation Famotidine (Pepcid) 20 mg PO BID [facility] Last Admin: 03/13/18 09:36 Dose: 20 mg Guaifenesin (Mucinex) 1,200 mg PO BID [facility] Last Admin: 03/13/18 09:36 Dose: 1,200 mg Heparin Sodium (Porcine) (Heparin Na) 5,000 unit SC Q12 [facility] Last Admin: 03/13/18 09:36 Dose: 5,000 unit Azithromycin 500 mg/ Dextrose 255 mls @ 250 mls/hr IV Q24 [facility] Stop: 03/14/18 11:02 Last Admin: 03/13/18 11:02 Dose: 250 mls/hr Sodium Chloride () 1,000 mls @ 100 mls/hr IV .Q10H [facility] Last Admin: 03/13/18 11:02 Dose: 100 mls/hr Ceftriaxone Sodium (Rocephin) 1 gm in 50 mls @ 100 mls/hr IV Q12 [facility] Last Admin: 03/13/18 09:35 Dose: 100 mls/hr Ondansetron HCl (Zofran) 4 mg IV Q8H PRN PRN PRN Reason: NAUSEA Oxycodone HCl (Oxyir) 5 mg PO Q4H PRN PRN PRN Reason: Moderate Pain (pain scale 4-5) Polyethylene Glycol (Miralax) 17 gm PO DAILY [facility] Last Admin: 03/13/18 09:41 Dose: 17 gm Sodium Chloride () 5 - 30 ml IV UD PRN PRN Reason: SALINE FLUSH Zolpidem Tartrate (Ambien (Generic)) 5 mg PO QHS PRN PRN PRN Reason: SLEEP Medical Necessity - Tobacco Use Smoking Status: Former smoker Tobacco Use: Non-smoker Assessment/Plan Active and Suspected Problems CAP (community acquired pneumonia) (Acute) [place] CKD Stage 3 (Acute) 67-year-old female with past medical history of COPD, lung cancer status post right upper lobe pneumonectomy comes in with complaints of not feeling well, cough shortness of breath. 1. Severe sepsis secondary to right community-acquired pneumonia, and due to suspected atypical and gram-positive organisms, present since admission seen on chest x-ray in the right upper lobe, urine streptococcal and Legionella antigen are negative. Blood cultures pending. On ceftriaxone and azithromycin 2. Acute respiratory insufficiency/hypoxia secondary to right community- acquired pneumonia, in a patient with primary lung cancer status post right upper lobe pneumonectomy, resolved, off oxygen,encourage use of incentive spirometer and pickle, will continue to monitor for SPO2 more than 94%. 3. Acute kidney injury likely secondary to post renal, renal ultrasound shows severe right hydronephrosis, nephrology urology consulted, slight improvement in creatinine, going for cystoscopy with possible stent placement tomorrow, will continue to follow with BMP 4. Hypertension, uncontrolled, started on amlodipine 5 mg daily, continue to monitor 5. 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 6. COPD, not in acute exacerbation 7. DVT prophylaxis with heparin subcu Code Visit Inpatient E&M: 81628 Subs Hosp L3
--- NOTE | 2018-03-13 19:40 | HP.PCM_ITS ---
- Problem List (1) Complete uterine prolapse Status: Chronic History and Physical Date of Admission: 03/11/18 67 yo female admitted for acute pneumonia, and acute kidney injury on chronic kidney disease, stage 3. Other medical problems including: h/o lung cancer, and s/p R upper lobectomy in 2007. Former smoker , quit 2007. COPD. Benign HTN, currently normotensive. Patient with h/o 6# 3 oz . and chronic uterine prolapse. which has been going on for years. States at time of pap she was expectant management was encouraged EXAM: GEN: A and O, NAD, thin female. Ambulated easily from chair to bed PSYCH: mood and affect appropriate HEENT: NCAT, Sclerae anicteric, EOMI NECK: supple ABDOMEN: soft, NT EXT: no clubbing, edema PELVIC: complete uterine prolapse noted with good support of perineum otherwise. Uterus temporarily reduced on exam but suspect that prolapse will recur. A/P: Complete uterine prolapse. Discussed options for treatment with Kaitlin, including: expectant management, trial of pessary , and surgical repair (if cleared for surgery at a later date) . Patient's preference is to try a pessary. RECOMMEND outpatient follow up for pessary fitting in the office with pessary fitting kit. Approximately 20 min with most of time spent in discussion and counseling.
[2018-03-13] MEDS: MELATONIN 3 MG TABLET PO (22:58)
[2018-03-14] VITALS (19 sets, daily range): BP systolic 121–165; BP diastolic 65–96; PULSE 53–112; RESP 16–20; TEMP 35.9–36.9; O2SAT 94–99; BMI 22.6
[2018-03-14 06:29] LABS: Albumin, Serum 2.4 g/dL (3.2-5.0); BUN 94 mg/dL (7-18); Calcium,Total 8.1 mg/dL (8.5-10.1); Chloride 111 mmol/L (98-107); Creatinine, Serum 4.96 mg/dL (0.55-1.02); EST Glomerular Filtration Rate 9 mL/min (>60); Est Glom Filt Rate - Afr Amer 11 mL/min (>60); Estimated Creatinine Clearance 8.94 ml/min; Glucose 90 mg/dL (74-106); Phosphorus 5.1 mg/dL (2.5-4.9); Potassium 3.3 mmol/L (3.5-5.1); Sodium Level 138 mmol/L (136-145)
[2018-03-14] MEDS: Ipratropium/Albuterol Sulfate 3 ML AMPUL.NEB INHALATION ×4 (06:57→19:29)
[2018-03-14] MEDS: Ceftriaxone 1 GM/50 ML BAG IV (08:57)
--- NOTE | 2018-03-14 08:58 | PCM.PN.REN ---
Patient Problems: Active and Suspected Problems CAP (community acquired pneumonia) (Acute) [place] CKD Stage 3 (Acute) Subjective: Seen by CHASER HELPER last night. Has uterine prolapse. Serum creatinine slightly improved to 4.9 today with good urine output. Scheduled for possible ureteral stent today with . Still with cough. Denies nausea, vomiting. Still has anorexia. - Physical Exam General: Alert, Oriented x3, Cooperative, No apparent distress Lungs: Rales - Bases posteriorly Cardiovascular: Regular rate Abdomen: Bowel Sounds Present, Soft, Non Tender, Non-Distended Extremities: No edema Skin: No rashes Neurological: - - No tremor Psych/Mental Status: Normal Affect, Appropriate, Alert and oriented to time, place, person, mood and affect Vital Signs Temp Pulse Resp BP Pulse Ox 97.6 F L 106 H 16 146/92 H 97 03/14/18 08:53 03/14/18 08:53 03/14/18 08:53 03/14/18 08:53 03/14/18 08:53 Oxygen Flow Rate (L/min) 2 Oxygen Delivery Method Room Air Weight: 56.1 kg Body Mass Index (BMI) 39.8 Intake and Output for Last 24 Hours 03/12/18 03/13/18 03/14/18 23:59 23:59 23:59 Intake Total 3823 / 3823 1939 / 1939 1076 / 1076 Output Total 400 / 400 625 / 625 2550 / 2550 Balance 3423 / 3423 1314 / 1314 -1474 / -1474 Microbiology Past 72 Hours 03/11/18 20:41 Gram Stain - Final Sputum, Expectorated/Coughed Respiratory Culture - Preliminary Presumptive C albicans Staphylococcus aureus Mixed Chloé 03/11/18 23:50 Legionella Antigen - Final Urine, Clean Catch 03/11/18 23:50 Streptococcus pneumoniae Antigen (M - Final Urine, Clean Catch 03/11/18 22:35 Influenza Types A,B Direct FA (JOSEE) - Final Mucosa - Nose Laboratory Tests Past 24 Hrs 03/14/18 05:24 Sodium 138 Potassium 3.3 L Chloride 111 H Carbon Dioxide 13.0 L BUN 94 H Creatinine 4.96 H Estim Creat Clear Calc 8.94 Est GFR (MDRD) Af Amer 11 L Est GFR (MDRD) Non-Af 9 L BUN/Creatinine Ratio 19.0 Glucose 90 Calcium 8.1 L Phosphorus 5.1 H Albumin 2.4 L Medical Necessity - Tobacco Use Smoking Status: Former smoker Tobacco Use: Non-smoker Assessment/Plan Active and Suspected Problems CAP (community acquired pneumonia) (Acute) [place] CKD Stage 3 (Acute) 1. Acute kidney injury versus chronic kidney disease with creatinine of 5.88 on admission improved to 4.9 today. Creatinine has been 0.95 in 2012 but has been as high as 3.3 in 2012, 2.5 in July 2014. Kidney ultrasound from [facility] in May 2013 showed normal size kidneys bilateral hydronephrosis with cyst in the right kidney measuring 10 x 8 x 5 mm. Renal US from this admit with bilateral hydro. consulted for possible ureteral stents. 2. Acute right lower lobe pneumonia. Continue antibiotic therapy 3. history of right upper lobe lobectomy for lung cancer in 2007. 4. History of hypertension off all blood pressure medications prior to admit. Continue to monitor. Started amlodipine 5. COPD with smoking history quit 2007. 6. [id number] replace
[2018-03-14] MEDS: amLODIPine 5 MG Tablet PO ×2 (08:59→16:51)
[2018-03-14] MEDS: guaiFENesin 1,200 MG Tablet 1200 MG PO ×2 (08:59→22:09)
[2018-03-14] MEDS: Famotidine 20 MG Tablet PO ×2 (09:00→22:09)
--- NOTE | 2018-03-14 09:01 | PN.RENAL_ITS ---
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 Has uterine prolapse. Serum creatinine slightly improved to 4.9 today with good urine output. Scheduled for possible ureteral stent today with . Still with cough. Denies nausea, vomiting. Still has anorexia. - Physical Exam General: Alert, Oriented x3, Cooperative, No apparent distress Lungs: Rales - Bases posteriorly Cardiovascular: Regular rate Abdomen: Bowel Sounds Present, Soft, Non Tender, Non-Distended Extremities: No edema Skin: No rashes Neurological: - - No tremor Psych/Mental Status: Normal Affect, Appropriate, Alert and oriented to time, place, person, mood and affect Vital Signs Temp Pulse Resp BP Pulse Ox 97.6 F L 106 H 16 146/92 H 97 03/14/18 08:53 03/14/18 08:53 03/14/18 08:53 03/14/18 08:53 03/14/18 08:53 Oxygen Flow Rate (L/min) 2 Oxygen Delivery Method Room Air Weight: 56.1 kg Body Mass Index (BMI) 39.8 Intake and Output for Last 24 Hours 03/12/18 03/13/18 03/14/18 23:59 23:59 23:59 Intake Total 3823 / 3823 1939 / 1939 1076 / 1076 Output Total 400 / 400 625 / 625 2550 / 2550 Balance 3423 / 3423 1314 / 1314 -1474 / -1474 Microbiology Past 72 Hours 03/11/18 20:41 Gram Stain - Final Sputum, Expectorated/Coughed Respiratory Culture - Preliminary Presumptive C albicans Staphylococcus aureus Mixed Chloé 03/11/18 23:50 Legionella Antigen - Final Urine, Clean Catch 03/11/18 23:50 Streptococcus pneumoniae Antigen (M - Final Urine, Clean Catch 03/11/18 22:35 Influenza Types A,B Direct FA (JOSEE) - Final Mucosa - Nose Laboratory Tests Past 24 Hrs 03/14/18 05:24 Sodium 138 Potassium 3.3 L Chloride 111 H Carbon Dioxide 13.0 L BUN 94 H Creatinine 4.96 H Estim Creat Clear Calc 8.94 Est GFR (MDRD) Af Amer 11 L Est GFR (MDRD) Non-Af 9 L BUN/Creatinine Ratio 19.0 Glucose 90 Calcium 8.1 L Phosphorus 5.1 H Albumin 2.4 L Medical Necessity - Tobacco Use Smoking Status: Former smoker Tobacco Use: Non-smoker Assessment/Plan Active and Suspected Problems CAP (community acquired pneumonia) (Acute) [place] CKD Stage 3 (Acute) 1. Acute kidney injury versus chronic kidney disease with creatinine of 5.88 on admission improved to 4.9 today. Creatinine has been 0.95 in 2012 but has been as high as 3.3 in 2012, 2.5 in July 2014. Kidney ultrasound from [facility] in May 2013 showed normal size kidneys bilateral hydronephrosis with cyst in the right kidney measuring 10 x 8 x 5 mm. Renal US from this admit with bilateral hydro. consulted for possible ureteral stents. 2. Acute right lower lobe pneumonia. Continue antibiotic therapy 3. history of right upper lobe lobectomy for lung cancer in 2007. 4. History of hypertension off all blood pressure medications prior to admit. Continue to monitor. Started amlodipine 5. COPD with smoking history quit 2007. 6. [id number] replace
--- NOTE | 2018-03-14 09:04 | PCM.PN.HOSP ---
Patient Problems: Active and Suspected Problems CAP (community acquired pneumonia) (Acute) [place] CKD Stage 3 (Acute) Subjective: Patient was seen and examined. Denies any complaints. She has been kept n.p.o. for cystoscopy and possible stent placement. Denies any fever or chills or chest pain no shortness of breath. Seen by center human resources manager, recommended pessary in the outpatient. Discussed patient total care with her in detail, explained to her that a surgical option would be better as likely due to prolapsed uterus was a cause of her kidney failure. Objective: Physical exam: General: Alert, Oriented x3, Cooperative, not pale, not jaundiced, well hydrated HEENT: Atraumatic, PERRLA, EOMI, Normocephalic Oral: Moist Mucosa Neck: Supple Lungs: Clear to auscultation, Normal air movement Cardiovascular: Regular rate, Regular Rhythm, Normal S1, Normal S2, No murmurs Abdomen: Bowel Sounds Present, Soft, Non Tender, Non-Distended, No Hepato-splenomegaly Extremities: No edema Skin: No rashes Musculoskeletal: No Tenderness to Palpation of Joints or Extremities Lymphatic: No Cervical, Supraclavicular, or Inguinal Adenopathy Neurological: Cranial nerves II-XII grossly intact, Neuro grossly intact Psych/Mental Status: Normal Affect, Appropriate Vitals/I&O's: Vital Signs Temp Pulse Resp BP Pulse Ox 97.6 F L 106 H 16 146/92 H 97 03/14/18 08:53 03/14/18 08:53 03/14/18 08:53 03/14/18 08:53 03/14/18 08:53 Oxygen Flow Rate (L/min) 2 Oxygen Delivery Method Room Air Weight: 56.1 kg Body Mass Index (BMI) 39.8 Intake and Output for Last 24 Hours 03/12/18 03/13/18 03/14/18 23:59 23:59 23:59 Intake Total 3823 / 3823 1939 / 1939 1076 / 1076 Output Total 400 / 400 625 / 625 2550 / 2550 Balance 3423 / 3423 1314 / 1314 -1474 / -1474 Microbiology Past 72 Hours 03/11/18 20:41 Sputum, Expectorated/Coughed Gram Stain - Final 03/11/18 20:41 Sputum, Expectorated/Coughed Respiratory Culture - Preliminary Presumptive C albicans Staphylococcus aureus Mixed Chloé 03/11/18 23:50 Urine, Clean Catch Legionella Antigen - Final 03/11/18 23:50 Urine, Clean Catch Streptococcus pneumoniae Antigen (M - Final 03/11/18 22:35 Mucosa - Nose Influenza Types A,B Direct FA (JOSEE) - Final Laboratory Results 03/14/18 05:24: Sodium 138, Potassium 3.3 L, Chloride 111 H, Carbon Dioxide 13.0 L, BUN 94 H, Creatinine 4.96 H, Estim Creat Clear Calc 8.94, Est GFR (MDRD) Af Amer 11 L, Est GFR (MDRD) Non-Af 9 L, BUN/Creatinine Ratio 19.0, Glucose 90, Calcium 8.1 L, Phosphorus 5.1 H, Albumin 2.4 L Current Medications Acetaminophen (Tylenol) 650 mg PO Q4H PRN PRN PRN Reason: Fever/pain Al Hydroxide/Mg Hydroxide (Mylanta Ii) 30 ml PO Q6H PRN PRN PRN Reason: Gastric Burning Albuterol Sulfate (Ventolin Aerosols) 2.5 mg INHALATION Q2H PRN PRN PRN Reason: SHORTNESS OF BREATH Albuterol/Ipratropium (Duoneb) 3 ml INHALATION Q4HWA.RT [facility] Last Admin: 03/14/18 06:57 Dose: 3 ml Amlodipine Besylate (Norvasc) 5 mg PO DAILY [facility] Last Admin: 03/14/18 08:59 Dose: 5 mg Docusate Sodium (Colace) 200 mg PO BID PRN PRN PRN Reason: Constipation Famotidine (Pepcid) 20 mg PO BID [facility] Last Admin: 03/14/18 09:00 Dose: 20 mg Guaifenesin (Mucinex) 1,200 mg PO BID [facility] Last Admin: 03/14/18 08:59 Dose: 1,200 mg Heparin Sodium (Porcine) (Heparin Na) 5,000 unit SC Q12 [facility] Last Admin: 03/14/18 08:55 Dose: Not Given Azithromycin 500 mg/ Dextrose 255 mls @ 250 mls/hr IV Q24 [facility] Stop: 03/14/18 11:02 Last Admin: 03/13/18 11:02 Dose: 250 mls/hr Ceftriaxone Sodium (Rocephin) 1 gm in 50 mls @ 100 mls/hr IV Q12 [facility] Last Admin: 03/14/18 08:57 Dose: 100 mls/hr Sodium Chloride () 1,000 mls @ 50 mls/hr IV .Q20H [facility] Melatonin (Melatonin) 3 mg PO QHS [facility] Last Admin: 03/13/18 22:58 Dose: 3 mg Ondansetron HCl (Zofran) 4 mg IV Q8H PRN PRN PRN Reason: NAUSEA Oxycodone HCl (Oxyir) 5 mg PO Q4H PRN PRN PRN Reason: Moderate Pain (pain scale 4-5) Polyethylene Glycol (Miralax) 17 gm PO DAILY [facility] Last Admin: 03/13/18 09:41 Dose: 17 gm Sodium Chloride () 5 - 30 ml IV UD PRN PRN Reason: SALINE FLUSH Medical Necessity - Tobacco Use Smoking Status: Former smoker Tobacco Use: Non-smoker Assessment/Plan Active and Suspected Problems CAP (community acquired pneumonia) (Acute) [place] CKD Stage 3 (Acute) 67-year-old female with past medical history of COPD, lung cancer status post right upper lobe pneumonectomy comes in with complaints of not feeling well, cough shortness of breath. 1. Severe sepsis secondary to right community-acquired pneumonia, secondary to suspected atypical and gram-positive organisms, present since admission seen on chest x-ray in the right upper lobe, urine streptococcal and Legionella antigen are negative. Blood cultures negative, patient appears improved, will switch to Augmentin for an extra week. 2. Acute respiratory insufficiency/hypoxia secondary to right community-acquired pneumonia, resolved. 3. Acute kidney injury likely secondary to post-renal/severe right hydronephrosis/ secondary to complete uterine prolapse, s/p endoscopy and stent placement, will follow up with BMP, nephrology and urology following. 4. Complete uterine prolapse, gynecology consulted, discussed with gynecology on results of cystoscopy, will arrange for pessary placement tomorrow in the outpatient clinic. 4. Hypertension, fairly uncontrolled, on amlodipine 5 mg daily, will increase to 10 mg p.o. daily 5. Chronic moderate protein calorie malnutrition, gasser machine operator consulted. 6. COPD, not in acute exacerbation 7. DVT prophylaxis with heparin subcu Code Visit Inpatient E&M: [id number] [facility] Hosp L3
--- NOTE | 2018-03-14 09:08 | PN_ITS ---
Patient Problems: Active and Suspected Problems CAP (community acquired pneumonia) (Acute) [place] CKD Stage 3 (Acute) Subjective: Patient was seen and examined. Denies any complaints. She has been kept n.p.o. for cystoscopy and possible stent placement. Denies any fever or chills or chest pain no shortness of breath. Seen by cold roll packer sheet iron, recommended pessary in the outpatient. Discussed patient total care with her in detail, explained to her that a surgical option would be better as likely due to prolapsed uterus was a cause of her kidney failure. Objective: Physical exam: General: Alert, Oriented x3, Cooperative, not pale, not jaundiced, well hydrated HEENT: Atraumatic, PERRLA, EOMI, Normocephalic Oral: Moist Mucosa Neck: Supple Lungs: Clear to auscultation, Normal air movement Cardiovascular: Regular rate, Regular Rhythm, Normal S1, Normal S2, No murmurs Abdomen: Bowel Sounds Present, Soft, Non Tender, Non-Distended, No Hepato- splenomegaly Extremities: No edema Skin: No rashes Musculoskeletal: No Tenderness to Palpation of Joints or Extremities Lymphatic: No Cervical, Supraclavicular, or Inguinal Adenopathy Neurological: Cranial nerves II-XII grossly intact, Neuro grossly intact Psych/Mental Status: Normal Affect, Appropriate Vitals/I&O's: Vital Signs Temp Pulse Resp BP Pulse Ox 97.6 F L 106 H 16 146/92 H 97 03/14/18 08:53 03/14/18 08:53 03/14/18 08:53 03/14/18 08:53 03/14/18 08:53 Oxygen Flow Rate (L/min) 2 Oxygen Delivery Method Room Air Weight: 56.1 kg Body Mass Index (BMI) 39.8 Intake and Output for Last 24 Hours 03/12/18 03/13/18 03/14/18 23:59 23:59 23:59 Intake Total 3823 / 3823 1939 / 1939 1076 / 1076 Output Total 400 / 400 625 / 625 2550 / 2550 Balance 3423 / 3423 1314 / 1314 -1474 / -1474 Microbiology Past 72 Hours 03/11/18 20:41 Sputum, Expectorated/Coughed Gram Stain - Final 03/11/18 20:41 Sputum, Expectorated/Coughed Respiratory Culture - Preliminary Presumptive C albicans Staphylococcus aureus Mixed Chloé 03/11/18 23:50 Urine, Clean Catch Legionella Antigen - Final 03/11/18 23:50 Urine, Clean Catch Streptococcus pneumoniae Antigen (M - Final 03/11/18 22:35 Mucosa - Nose Influenza Types A,B Direct FA (JOSEE) - Final Laboratory Results 03/14/18 05:24: Sodium 138, Potassium 3.3 L, Chloride 111 H, Carbon Dioxide 13.0 L, BUN 94 H, Creatinine 4.96 H, Estim Creat Clear Calc 8.94, Est GFR (MDRD ) Af Amer 11 L, Est GFR (MDRD) Non-Af 9 L, BUN/Creatinine Ratio 19.0, Glucose 90 , Calcium 8.1 L, Phosphorus 5.1 H, Albumin 2.4 L Current Medications Acetaminophen (Tylenol) 650 mg PO Q4H PRN PRN PRN Reason: Fever/pain Al Hydroxide/Mg Hydroxide (Mylanta Ii) 30 ml PO Q6H PRN PRN PRN Reason: Gastric Burning Albuterol Sulfate (Ventolin Aerosols) 2.5 mg INHALATION Q2H PRN PRN PRN Reason: SHORTNESS OF BREATH Albuterol/Ipratropium (Duoneb) 3 ml INHALATION Q4HWA.RT [facility] Last Admin: 03/14/18 06:57 Dose: 3 ml Amlodipine Besylate (Norvasc) 5 mg PO DAILY [facility] Last Admin: 03/14/18 08:59 Dose: 5 mg Docusate Sodium (Colace) 200 mg PO BID PRN PRN PRN Reason: Constipation Famotidine (Pepcid) 20 mg PO BID [facility] Last Admin: 03/14/18 09:00 Dose: 20 mg Guaifenesin (Mucinex) 1,200 mg PO BID [facility] Last Admin: 03/14/18 08:59 Dose: 1,200 mg Heparin Sodium (Porcine) (Heparin Na) 5,000 unit SC Q12 [facility] Last Admin: 03/14/18 08:55 Dose: Not Given Azithromycin 500 mg/ Dextrose 255 mls @ 250 mls/hr IV Q24 [facility] Stop: 03/14/18 11:02 Last Admin: 03/13/18 11:02 Dose: 250 mls/hr Ceftriaxone Sodium (Rocephin) 1 gm in 50 mls @ 100 mls/hr IV Q12 [facility] Last Admin: 03/14/18 08:57 Dose: 100 mls/hr Sodium Chloride () 1,000 mls @ 50 mls/hr IV .Q20H [facility] Melatonin (Melatonin) 3 mg PO QHS [facility] Last Admin: 03/13/18 22:58 Dose: 3 mg Ondansetron HCl (Zofran) 4 mg IV Q8H PRN PRN PRN Reason: NAUSEA Oxycodone HCl (Oxyir) 5 mg PO Q4H PRN PRN PRN Reason: Moderate Pain (pain scale 4-5) Polyethylene Glycol (Miralax) 17 gm PO DAILY [facility] Last Admin: 03/13/18 09:41 Dose: 17 gm Sodium Chloride () 5 - 30 ml IV UD PRN PRN Reason: SALINE FLUSH Medical Necessity - Tobacco Use Smoking Status: Former smoker Tobacco Use: Non-smoker Assessment/Plan Active and Suspected Problems CAP (community acquired pneumonia) (Acute) [place] CKD Stage 3 (Acute) 67-year-old female with past medical history of COPD, lung cancer status post right upper lobe pneumonectomy comes in with complaints of not feeling well, cough shortness of breath. 1. Severe sepsis secondary to right community-acquired pneumonia, secondary to suspected atypical and gram-positive organisms, present since admission seen on chest x-ray in the right upper lobe, urine streptococcal and Legionella antigen are negative. Blood cultures negative, patient appears improved, will switch to Augmentin for an extra week. 2. Acute respiratory insufficiency/hypoxia secondary to right community- acquired pneumonia, resolved. 3. Acute kidney injury likely secondary to post-renal/severe right hydronephrosis/ secondary to complete uterine prolapse, s/p endoscopy and stent placement, will follow up with BMP, nephrology and urology following. 4. Complete uterine prolapse, gynecology consulted, discussed with gynecology on results of cystoscopy, will arrange for pessary placement tomorrow in the outpatient clinic. 4. Hypertension, fairly uncontrolled, on amlodipine 5 mg daily, will increase to 10 mg p.o. daily 5. Chronic moderate protein calorie malnutrition, special effects designer consulted. 6. COPD, not in acute exacerbation 7. DVT prophylaxis with heparin subcu Code Visit Inpatient E&M: [id number] [facility] Hosp L3
--- NOTE | 2018-03-14 09:09 | EKG12_ITS ---
Test Reason : DISRYTHMIA Blood Pressure : / mmHG Vent. Rate : 109 BPM Atrial Rate : 109 BPM P-R Int : 130 ms QRS Dur : 096 ms QT Int : 348 ms P-R-T Axes : 027 019 032 degrees QTc Int : 468 ms Sinus tachycardia with Premature atrial complexes Otherwise normal ECG When compared with ECG of 11-MAR-2018 17:39, No significant change was found Confirmed by RICKY GAMINO, DIAZ ([id number]), editorial clerk YOUSIF LITTLE ([id number]) on 03/19/2018 2:36:59 PM Referred By: ROD Confirmed By:DIAZ GARCÍA MD
[2018-03-14] MEDS: Polyethylene Glycol 3350 17 GM PACKET PO (09:57)
[2018-03-14] MEDS: 0.9% Normal Saline 1,000 ML 75 ML IV (10:15)
[2018-03-14] MEDS: Amox/Clavulanate 500 MG Tablet PO (11:05)
--- NOTE | 2018-03-14 12:29 | NURSING ---
cALL PLACED TO AC, PT BEING TAKEN DOWN FOR SURGERY
[2018-03-14] MEDS: Lidocaine Jelly 2% 20 ML Syringe (URO-JET) 20 APPLIC (13:30)
--- NOTE | 2018-03-14 13:51 | PCM.OPRPT ---
Report of Operation Date of Procedure: 03/14/18 Pre-Operative Diagnosis: Acute renal failure and bilateral hydronephrosis secondary to complete uterine prolapse. Post-Operative Diagnosis: Same Surgery/Procedure Performed:: Cystoscopy, left retrograde pyelogram, right retrograde pyelogram gram. Left stent placement and right stent placement and Yarbrough catheter placement Description of Surgical Findings:: 67-year-old female presents to the hospital with a pneumonia she was also found to have acute renal failure with bilateral hydronephrosis. She does have complete prolapse of the uterus. Today she is taken to the operating room for cystoscopy evaluation the bladder and possible bilateral stents suspect that the cause of the hydronephrosis is a complete uterine prolapse. 67-year-old female with complete uterine prolapse on exam she had a uterus and the cervix coming all the way out. This is causing kinking of both the ureters on retrograde pyelogram she had bilateral hydronephrosis down to her bladder which is the caused by her complete uterine prolapse. On cystoscopy she had a nice smooth bladder difficult to identify the trigone because of the aberrant anatomy was able to identify the left trigone the left retrograde pyelogram very tortuous ureter and then placed a stent 6 [place] by 28 cm stent. Then was able identify the right ureteral orifice placed a wire up the right kidney place a 6 [place] by 28 cm stent of the right kidney both stents coiled in the bladder we left the catheter in to help drain both the kidneys she still has significant uterine prolapse which came out very easily during the procedure with any coughing etc. I think in the end when she heals from her pneumonia she will need a repair of her complete uterine prolapse for now the stents hopefully will drain the kidneys and improve her renal function. If she fails to improve renal function with the stent that she may need bilateral nephrostomy tubes until she has uterine prolapse repaired. Type of Anesthesia:: General Drains: b\l stents. - Admit VTE Documentation VTE Present on Admission: No VTE Mechan Device Prophylaxis: SCD's VTE Pharm Prophylaxis ordered?: No Reason prophylaxis not ordered:: Treatment Not Indicated
[2018-03-14] MEDS: MELATONIN 3 MG TABLET PO (22:09)
[2018-03-14] MEDS: Heparin Injection (Vial) 5,000 UNIT/ML VIAL 5000 UNIT SC (22:09)
[2018-03-15] VITALS (8 sets, daily range): BP systolic 121–151; BP diastolic 66–83; PULSE 83–112; RESP 16–19; TEMP 36.4–36.8; O2SAT 95–99
[2018-03-15] MEDS: 0.9% Normal Saline 1,000 ML 50 ML IV (05:13)
[2018-03-15] MEDS: Ipratropium/Albuterol Sulfate 3 ML AMPUL.NEB INHALATION ×3 (07:02→19:12)
[2018-03-15 07:04] LABS: Albumin, Serum 2.6 g/dL (3.2-5.0); BUN 91 mg/dL (7-18); BUN/Creat Ratio 18.7 RATIO (10-20); Calcium,Total 8.5 mg/dL (8.5-10.1); Chloride 112 mmol/L (98-107); Creatinine, Serum 4.87 mg/dL (0.55-1.02); EST Glomerular Filtration Rate 10 mL/min (>60); Est Glom Filt Rate - Afr Amer 12 mL/min (>60); Estimated Creatinine Clearance 9.11 ml/min; Glucose 83 mg/dL (74-106); Phosphorus 5.5 mg/dL (2.5-4.9); Sodium Level 138 mmol/L (136-145)
--- NOTE | 2018-03-15 07:29 | PCM.PN.BLA ---
Progress Note Creatinine down only slightly after b/l stents significant prolapse does have significant atrophy if both kidneys likely that process is chronic, would want radiology to place nephrostomy tube tomorrow if cr is not any better. if Cr does not get better with nephrostomy tubes she is at high risk for needing dialysis in the medical terminologist.
--- NOTE | 2018-03-15 08:41 | PCM.PN.REN ---
Patient Problems: Active and Suspected Problems CAP (community acquired pneumonia) (Acute) [place] CKD Stage 3 (Acute) Subjective: doing well, no nausea, appetite good. BL ureteral stents placed yesterday. Creatinine not much improved. - Physical Exam General: Alert, Oriented x3, Cooperative Oral: Moist Mucosa Neck: Supple Lungs: Rales - R>L Cardiovascular: Regular rate, No rub noted Abdomen: Bowel Sounds Present, Soft, Non Tender, Non-Distended Extremities: No edema Skin: No rashes Psych/Mental Status: Normal Affect, Appropriate, Alert and oriented to time, place, person, mood and affect Vital Signs Temp Pulse Resp BP Pulse Ox 97.5 F L 103 H 18 131/71 H 97 03/15/18 03:59 03/15/18 07:04 03/15/18 07:04 03/15/18 03:59 03/15/18 07:04 Oxygen Flow Rate (L/min) 2 Oxygen Delivery Method Room Air Weight: 56.1 kg Body Mass Index (BMI) 22.6 Intake and Output for Last 24 Hours 03/13/18 03/14/18 03/15/18 23:59 23:59 23:59 Intake Total 1939 / 1939 3501 / 3501 231 / 231 Output Total 625 / 625 4490 / 4490 750 / 750 Balance 1314 / 1314 -989 / -989 -519 / -519 Microbiology Past 72 Hours 03/11/18 20:41 Gram Stain - Final Sputum, Expectorated/Coughed Respiratory Culture - Final Staphylococcus aureus Presumptive C albicans 03/11/18 19:25 Blood Culture - Preliminary Blood Culture (Wb) - Right Hand No growth in 48 hours. 03/11/18 19:00 Blood Culture - Preliminary Blood Culture (Wb) - Anticubital Right No growth in 48 hours. Laboratory Tests Past 24 Hrs 03/15/18 06:35 Sodium 138 Potassium 4.0 Chloride 112 H Carbon Dioxide 13.0 L BUN 91 H Creatinine 4.87 H Estim Creat Clear Calc 9.11 Est GFR (MDRD) Af Amer 12 L Est GFR (MDRD) Non-Af 10 L BUN/Creatinine Ratio 18.7 Glucose 83 Calcium 8.5 Phosphorus 5.5 H Albumin 2.6 L Medical Necessity - Tobacco Use Smoking Status: Former smoker Tobacco Use: Non-smoker Assessment/Plan Active and Suspected Problems CAP (community acquired pneumonia) (Acute) [place] CKD Stage 3 (Acute) 1. Acute kidney injury versus chronic kidney disease with creatinine of 5.88 on admission improved to 4.87 today. Likely chronic with component of acute from obstructive nephropathy. Underwent BL ureteral stents yesterday. Creatinine has been 0.95 in 2012, 3.3 in 2012, 2.5 in July 2014. Agree with PNT if uterine prolapse not corrected. May need to dc with cassidy vs PNT. 2. Acute right lower lobe pneumonia. Continue antibiotic therapy 3. history of right upper lobe lobectomy for lung cancer in 2007. 4. Hypertension continue amlodipine 5. COPD with smoking history quit 2007. 6. Hypokalemia replaced, DC iv fluids DW primary service
[2018-03-15] MEDS: Famotidine 20 MG Tablet PO ×2 (09:58→22:18)
[2018-03-15] MEDS: Heparin Injection (Vial) 5,000 UNIT/ML VIAL 5000 UNIT SC ×2 (09:59→22:18)
[2018-03-15] MEDS: guaiFENesin 1,200 MG Tablet 1200 MG PO ×2 (09:59→22:18)
[2018-03-15] MEDS: amLODIPine 10 MG Tablet PO (10:02)
[2018-03-15] MEDS: Polyethylene Glycol 3350 17 GM PACKET PO (10:02)
--- NOTE | 2018-03-15 10:09 | PCM.PN.HOSP ---
Patient Problems: Active and Suspected Problems CAP (community acquired pneumonia) (Acute) [place] CKD Stage 3 (Acute) Vitals/I&O's: Vital Signs Temp Pulse Resp BP Pulse Ox 97.8 F 107 H 18 131/74 H 96 03/15/18 09:42 03/15/18 09:42 03/15/18 09:42 03/15/18 09:42 03/15/18 09:42 Oxygen Flow Rate (L/min) 2 Oxygen Delivery Method Room Air Weight: 56.1 kg Body Mass Index (BMI) 22.6 Intake and Output for Last 24 Hours 03/13/18 03/14/18 03/15/18 23:59 23:59 23:59 Intake Total 1939 / 1939 3501 / 3501 231 / 231 Output Total 625 / 625 4490 / 4490 750 / 750 Balance 1314 / 1314 -989 / -989 -519 / -519 Microbiology Past 72 Hours 03/11/18 20:41 Sputum, Expectorated/Coughed Gram Stain - Final 03/11/18 20:41 Sputum, Expectorated/Coughed Respiratory Culture - Final Staphylococcus aureus Presumptive C albicans 03/11/18 19:25 Blood Culture (Wb) - Right Hand Blood Culture - Preliminary No growth in 48 hours. 03/11/18 19:00 Blood Culture (Wb) - Anticubital Right Blood Culture - Preliminary No growth in 48 hours. Laboratory Results 03/15/18 06:35: Sodium 138, Potassium 4.0, Chloride 112 H, Carbon Dioxide 13.0 L, BUN 91 H, Creatinine 4.87 H, Estim Creat Clear Calc 9.11, Est GFR (MDRD) Af Amer 12 L, Est GFR (MDRD) Non-Af 10 L, BUN/Creatinine Ratio 18.7, Glucose 83, Calcium 8.5, Phosphorus 5.5 H, Albumin 2.6 L Current Medications Acetaminophen (Tylenol) 650 mg PO Q4H PRN PRN PRN Reason: Fever/pain Al Hydroxide/Mg Hydroxide (Mylanta Ii) 30 ml PO Q6H PRN PRN PRN Reason: Gastric Burning Albuterol Sulfate (Ventolin Aerosols) 2.5 mg INHALATION Q2H PRN PRN PRN Reason: SHORTNESS OF BREATH Albuterol/Ipratropium (Duoneb) 3 ml INHALATION Q4HWA.RT [facility] Last Admin: 05/03/18 07:02 Dose: 3 ml Amlodipine Besylate (Norvasc) 10 mg PO DAILY [facility] Last Admin: 03/15/18 10:02 Dose: 10 mg Amoxicillin/Clavulanate Potassium (Augmentin Tablet) 500 mg PO DAILY@1200 [facility] Last Admin: 03/14/18 11:05 Dose: 500 mg Docusate Sodium (Colace) 200 mg PO BID PRN PRN PRN Reason: Constipation Famotidine (Pepcid) 20 mg PO BID [facility] Last Admin: 03/15/18 09:58 Dose: 20 mg Guaifenesin (Mucinex) 1,200 mg PO BID [facility] Last Admin: 03/15/18 09:59 Dose: 1,200 mg Heparin Sodium (Porcine) (Heparin Na) 5,000 unit SC Q12 [facility] Last Admin: 03/15/18 09:59 Dose: 5,000 unit Melatonin (Melatonin) 3 mg PO QHS [facility] Last Admin: 03/14/18 22:09 Dose: 3 mg Ondansetron HCl (Zofran) 4 mg IV Q8H PRN PRN PRN Reason: NAUSEA Oxycodone HCl (Oxyir) 5 mg PO Q4H PRN PRN PRN Reason: Moderate Pain (pain scale 4-5) Polyethylene Glycol (Miralax) 17 gm PO DAILY [facility] Last Admin: 03/15/18 10:02 Dose: 17 gm Sodium Chloride () 5 - 30 ml IV UD PRN PRN Reason: SALINE FLUSH Medical Necessity - Tobacco Use Smoking Status: Former smoker Tobacco Use: Non-smoker Assessment/Plan Active and Suspected Problems CAP (community acquired pneumonia) (Acute) [place] CKD Stage 3 (Acute)
[2018-03-15] MEDS: Amox/Clavulanate 500 MG Tablet PO (11:57)
--- NOTE | 2018-03-15 14:30 | NURSING ---
patient off floor for Dr appointment with Dr. Brown.
--- NOTE | 2018-03-15 15:42 | PN_ITS ---
<Prakash Campos - Last Filed: 03/15/18 15:23> Patient Problems: Active and Suspected Problems CAP (community acquired pneumonia) (Acute) [place] CKD Stage 3 (Acute) Subjective: Pt resting comfortably in chair at bedside NAD. She has no SOB, abdominal pain, nausea, vomiting. She is tolerating the catheter without discomfort. She still has a cough productive of mucus. No fever or chills. She is agreeable to pessary placement today at 1430pm. - Physical Exam General: Alert, Oriented x3, Cooperative HEENT: Atraumatic, PERRLA, EOMI, Normocephalic Neck: Supple, No JVD, Negative Carotid Bruits Lungs: Clear to auscultation, Normal air movement Cardiovascular: Regular rate, No murmurs Abdomen: Bowel Sounds Present, Soft, Non Tender Extremities: No edema, Capillary Refill Less than 3 Seconds Skin: No rashes, No breakdown Musculoskeletal: No Tenderness to Palpation of Joints or Extremities Neurological: Cranial nerves II-XII grossly intact Psych/Mental Status: Normal Affect, Appropriate, Alert and oriented to time, place, person, mood and affect Vital Signs Temp Pulse Resp BP Pulse Ox 97.8 F 92 19 H 131/74 H 96 03/15/18 09:42 03/15/18 10:43 03/15/18 10:43 03/15/18 09:42 03/15/18 09:42 Oxygen Flow Rate (L/min) 2 Oxygen Delivery Method Room Air Weight: 56.1 kg Body Mass Index (BMI) 22.6 Intake and Output for Last 24 Hours 03/13/18 03/14/18 03/15/18 23:59 23:59 23:59 Intake Total 1939 / 1939 3501 / 3501 828 / 828 Output Total 625 / 625 4490 / 4490 1350 / 1350 Balance 1314 / 1314 -989 / -989 -522 / -522 Microbiology Past 72 Hours 03/11/18 20:41 Gram Stain - Final Sputum, Expectorated/Coughed Respiratory Culture - Final Staphylococcus aureus Presumptive C albicans 03/11/18 19:25 Blood Culture - Preliminary Blood Culture (Wb) - Right Hand No growth in 48 hours. 03/11/18 19:00 Blood Culture - Preliminary Blood Culture (Wb) - Anticubital Right No growth in 48 hours. Laboratory Tests Past 24 Hrs 03/15/18 06:35 Sodium 138 Potassium 4.0 Chloride 112 H Carbon Dioxide 13.0 L BUN 91 H Creatinine 4.87 H Estim Creat Clear Calc 9.11 Est GFR (MDRD) Af Amer 12 L Est GFR (MDRD) Non-Af 10 L BUN/Creatinine Ratio 18.7 Glucose 83 Calcium 8.5 Phosphorus 5.5 H Albumin 2.6 L Medical Necessity - Tobacco Use Smoking Status: Former smoker Tobacco Use: Non-smoker Assessment/Plan Active and Suspected Problems CAP (community acquired pneumonia) (Acute) [place] CKD Stage 3 (Acute) 1. [place] 2/2 mechanical obstruction 2/2 complete uterine prolapse - renal, urology following. Pessary today. Continues to have slight improvement daily. 2. Severe sepsis 2/2 RLL pna (CAP) - continue augmentin. Dramatically improved. crackles RML/base. No SOB. Phos still elevated. 3. Hypokalemia - resolved. 4. HTN - stable 5. Mod protein malnutrition - roller inspector and mender consulted 6 .COPD - breathing stable DVT ppx: heparin DC planning: home tomorrow if renal function improved. This patient was seen by Prakash Campos PA-C under the supervision of Doctor Ceci. <Kassandra Ornelas - Last Filed: 03/16/18 07:29> - Physical Exam Vital Signs Temp Pulse Resp BP Pulse Ox 97.2 F L 82 16 137/76 H 95 03/16/18 03:55 03/16/18 03:55 03/16/18 03:55 03/16/18 03:55 03/16/18 03:55 Oxygen Flow Rate (L/min) 2 Oxygen Delivery Method Room Air Weight: 56.1 kg Body Mass Index (BMI) 22.6 Intake and Output for Last 24 Hours 03/14/18 03/15/18 03/16/18 23:59 23:59 23:59 Intake Total 3501 / 3501 1428 / 1428 0 / 0 Output Total 4490 / 4490 2950 / 2950 800 / 800 Balance -989 / -989 -1522 / -1522 -800 / -800 Microbiology Past 72 Hours 03/11/18 20:41 Gram Stain - Final Sputum, Expectorated/Coughed Respiratory Culture - Final Staphylococcus aureus Presumptive C albicans 03/11/18 19:25 Blood Culture - Preliminary Blood Culture (Wb) - Right Hand No growth in 48 hours. 03/11/18 19:00 Blood Culture - Preliminary Blood Culture (Wb) - Anticubital Right No growth in 48 hours. Laboratory Tests Past 24 Hrs 03/16/18 03/16/18 05:55 05:55 WBC 14.0 H RBC 3.05 L Hgb 8.0 L Hct 24.9 L MCV 81.6 MCH 26.2 L MCHC 32.1 RDW 16.7 H RDW Differential 48.8 H Plt Count 167 MPV 9.8 Neut % (Auto) Not Reportable Absolute Neuts (auto) 12.3 H Absolute Lymphs (auto) 0.84 Total Counted 100 Neutrophils % (Manual) 86 H Band Neutrophils % 2 Lymphocytes % (Manual) 6 L Monocytes % (Manual) 3 Metamyelocytes % 2 H Myelocytes % 1 H Diff Path Review May foll Platelet Estimate ADEQUATE RBC Morphology NORM C+C Sodium 139 Potassium 3.8 Chloride 114 H Carbon Dioxide 11.0 L Anion Gap 14 BUN 86 H Creatinine 4.92 H Estim Creat Clear Calc 9.02 Est GFR (MDRD) Af Amer 11 L Est GFR (MDRD) Non-Af 9 L BUN/Creatinine Ratio 17.5 Glucose 100 Calcium 8.1 L Assessment/Plan Patient was seen and examined independently of physician insurance underwriting assistant Prakash Gottlieb. I agree with his interval history, physical exam No new complaints. Breathing better. She is going for a pessary today. Very mild improvement in kidney function. We will continue to monitor. Code Visit Inpatient E&M: [id number] Subs Hosp L2
--- NOTE | 2018-03-15 15:46 | NURSING ---
Patient returned from appointment
[2018-03-15] MEDS: MELATONIN 3 MG TABLET PO (22:18)
[2018-03-16] VITALS (16 sets, daily range): BP systolic 93–165; BP diastolic 52–82; PULSE 82–118; RESP 16–20; TEMP 36.2–36.7; O2SAT 94–98
[2018-03-16 06:19] LABS: Hematocrit 24.9 % (37-47); Mean Corp Hgb Conc 32.1 g/gl (32-36); Mean Corpuscular Hgb 26.2 pg (27.0-32.0); Mean Corpuscular Volume 81.6 fL (81-99); Mean Platelet Vol. 9.8 fl (6.2-12.0); Platelet Count 167 K/mm3 (150-450); RBC Distribution Width CV 16.7 % (11.6-14.6); RBC Distribution Width SD 48.8 fl (35.1-43.9); Red Blood Count 3.05 M/mm3 (4.2-5.4)
[2018-03-16 06:25] LABS: Anion Gap 14 (5-15); BUN 86 mg/dL (7-18); BUN/Creat Ratio 17.5 RATIO (10-20); Calcium,Total 8.1 mg/dL (8.5-10.1); Chloride 114 mmol/L (98-107); Creatinine, Serum 4.92 mg/dL (0.55-1.02); EST Glomerular Filtration Rate 9 mL/min (>60); Est Glom Filt Rate - Afr Amer 11 mL/min (>60); Estimated Creatinine Clearance 9.02 ml/min; Glucose 100 mg/dL (74-106); Potassium 3.8 mmol/L (3.5-5.1); Sodium Level 139 mmol/L (136-145)
[2018-03-16 06:32] LABS: Differential Indicated MANUAL DIFF; POSITIVE COUNT YES; POSITIVE DIFFERENTIAL NO; POSITIVE MORPHOLOGY YES
[2018-03-16 07:04] LABS: Lymphocyte 6 % (19-41); Metamyelocyte 2 % (0-1); Monocyte 3 % (0-10); Myelocyte 1 (0-0); Neutrophil-Band 2 % (0-5); Neutrophil-Segmented 86 % (47-70); Red Cell Morphology NORM C+C NORMAL (NORM C&C); Total Cells Counted 100 (MANUAL DIFF)
[2018-03-16 07:05] LABS: Absolute Lymphocyte Count 0.84 X10^3/ul (0.83-4.51); Absolute Neutrophil Count 12.3 X10^3/uL (2.0-7.7); Lymphocyte # 0.84 X10^3/ul (4.0); Neutrophil # 12.32 X10^3/uL (2.7-7.7); Platelet Estimate ADEQUATE (ADEQ)
[2018-03-16] MEDS: Ipratropium/Albuterol Sulfate 3 ML AMPUL.NEB INHALATION ×4 (07:33→20:00)
[2018-03-16 07:56] LABS: Ferritin 94 ng/mL (8-252); Iron 23 ug/dL (50-170); Iron Binding Capacity,Total 241 ug/dL (250-450); PERCENT IRON SATURATION 9.5 % (15.0-55.0)
[2018-03-16 07:59] LABS: Immature Platelet Fraction 3.1 % (1.0-7.9); RET-HE 21.1 pg (30-35); Reticulocyte Count 0.56 % (0.5-1.5)
[2018-03-16] MEDS: Sodium Bicarbonate 75 MEQ in 0.45% Normal Saline 1,000 ML 50 ML IV (08:33)
[2018-03-16] MEDS: 0.9% NaCl Peripheral Flush Adult/Peds IV ×3 (08:37→21:26)
--- NOTE | 2018-03-16 08:57 | EKG12_ITS ---
Test Reason : Blood Pressure : / mmHG Vent. Rate : 109 BPM Atrial Rate : 109 BPM P-R Int : 148 ms QRS Dur : 096 ms QT Int : 356 ms P-R-T Axes : 030 012 021 degrees QTc Int : 479 ms Sinus tachycardia with Premature atrial complexes Otherwise normal ECG When compared with ECG of 14-MAR-2018 10:44, MANUAL COMPARISON REQUIRED, DATA IS UNCONFIRMED Confirmed by RICKY GAMINO, DIAZ ([id number]), communications editor YOUSIF LITTLE ([id number]) on 03/19/2018 2:27:10 PM Referred By: ISIAH Confirmed By:DIAZ GARCÍA MD
[2018-03-16] MEDS: amLODIPine 10 MG Tablet PO (09:13)
[2018-03-16] MEDS: guaiFENesin 1,200 MG Tablet 1200 MG PO ×2 (09:13→21:27)
[2018-03-16] MEDS: Calcium Acetate 667 MG Capsule PO ×2 (09:13→18:22)
[2018-03-16] MEDS: Famotidine 20 MG Tablet PO ×2 (09:13→21:26)
[2018-03-16] MEDS: Heparin Injection (Vial) 5,000 UNIT/ML VIAL 5000 UNIT SC (09:14)
[2018-03-16 09:30] LABS: Magnesium 1.8 mg/dL (1.6-2.6)
--- NOTE | 2018-03-16 09:41 | CT_ITS ---
PROCEDURE: CT-GUIDED RIGHT NEPHROSTOMY TUBE PLACEMENT INDICATION: Female, 67 [address] GUIDANCE RADIATION DOSAGE (If Supplied By Facility): CTDIvol = ( ) mGy, DLP = ( ) mGycm Individualized dose optimization techniques were used during this procedure CONSENT: The risks, benefits and alternatives to the procedure were explained to the patient, and the patient agreed to the procedure and signed the consent. SEDATION: Intermittent the intravenous and demonstration of Versed and fentanyl by nursing staff under continuous cardiopulmonary monitoring. Sedation less than approximately 30 minutes STERILE BARRIER TECHNIQUE: The following sterile barrier precautions were used during the procedure: hand hygiene; use of 2% chlorhexidine aseptic; use of a cap, mask, sterile gown, sterile gloves, sterile full body drape, and a large sterile sheet. PROCEDURE/TECHNIQUE: The risks, benefits, and alternatives to the procedure were explained to patient, and the patient agreed to the procedure and signed a consent form for the procedure. A timeout was performed to confirm the patient's identity, the type of procedure, to be performed and the site of entry. Patient was positioned in prone position on the CT scan table. Under CT guidance using sterile technique and after infiltration of the skin and subcutaneous soft tissues with 40 mL of lidocaine 1% 20-gauge needle was introduced in the upper pole calyx of the right kidney and then 0.018 guidewire was advanced and the needle the needle was removed and a 4 [place] sheath was advanced over the guidewire then the existing guidewire is removed and a new 0.035 J-tip guidewire was advanced in the 4 [place] dilator then the 4 [place] guide is removed and the tract is serially dilated up to 8 [place]. An 8 [place]an catheter is advanced over the guidewire and is coiled within the renal pelvis. The drainage catheter is secured to the skin using an adhesive device and is attached to a bag for continuous drainage. There was no immediate complication. FINDINGS: Hydronephrosis was successfully drained with an [address]/Guided Neph Tube Ins IMPRESSION: Successful right nephrostomy tube placement under CT guidance. Electronically Signed: Missy Ramirez MD at 14:23 EDT Tel , Service support ,
--- NOTE | 2018-03-16 09:46 | PCM.PN.BLA ---
Progress Note Unfortunately, cr has not improved with stent recommend b/l nephrostomy tubes but she may end of on dialysis b/c renal failure in the long run? please have radiology place b/l nephrostomy tubes.
[2018-03-16 11:09] LABS: International Normalized Ratio 1.2; Prothrombin Time (Protime)PT. 15.2 SECONDS (11.7-14.9)
[2018-03-16 11:10] LABS: Partial Thromboplast Time 40.2 Seconds (24.1-36.2)
[2018-03-16] MEDS: Amox/Clavulanate 500 MG Tablet PO (13:15)
[2018-03-16] MEDS: Acetaminophen 325 MG Tablet 650 MG PO ×2 (14:02→18:22)
[2018-03-16] MEDS: oxyCODONE 5 MG Tablet PO ×2 (14:02→18:25)
--- NOTE | 2018-03-16 14:07 | PCM.PROGNOTE ---
<Prakash Campos - Last Filed: 03/16/18 14:07> Patient Problems: Active and Suspected Problems CAP (community acquired pneumonia) (Acute) [place] CKD Stage 3 (Acute) Subjective: Pt continues to have productive cough of clear to yellow sputum. Breathing remains improved with no SOB. No fevers or chills. No dizziness/LH, abdominal pain, cassidy discomfort, N/V/D or otherwise malaise. No muscle spasms or tremor. Unfortunately, there is no improvement in her renal function, conversely there was a slight deterioration of his her renal function overnight after the pessary was placed. She will be going for nephrostomy tube placement today per radiology. - Physical Exam General: Alert, Oriented x3, Cooperative HEENT: Atraumatic, PERRLA, EOMI, Normocephalic Neck: Supple, No JVD, Negative Carotid Bruits Lungs: Clear to auscultation, Diminished Cardiovascular: Regular rate, No murmurs Abdomen: Bowel Sounds Present, Soft, Non Tender Extremities: No edema, Capillary Refill Less than 3 Seconds Skin: No rashes, No breakdown Musculoskeletal: No Tenderness to Palpation of Joints or Extremities Neurological: Cranial nerves II-XII grossly intact Psych/Mental Status: Normal Affect, Appropriate Vital Signs Temp Pulse Resp BP Pulse Ox 98.0 F 85 17 115/69 98 03/16/18 13:18 03/16/18 13:18 03/16/18 13:18 03/16/18 13:18 03/16/18 13:18 Oxygen Flow Rate (L/min) 2 Oxygen Delivery Method Room Air Weight: 56.1 kg Body Mass Index (BMI) 22.6 Intake and Output for Last 24 Hours 03/14/18 03/15/18 03/16/18 23:59 23:59 23:59 Intake Total 3501 / 3501 1428 / 1428 639 / 639 Output Total 4490 / 4490 2950 / 2950 1500 / 1500 Balance -989 / -989 -1522 / -1522 -861 / -861 Microbiology Past 72 Hours 03/11/18 20:41 Gram Stain - Final Sputum, Expectorated/Coughed Respiratory Culture - Final Staphylococcus aureus Presumptive C albicans 03/11/18 19:25 Blood Culture - Preliminary Blood Culture (Wb) - Right Hand No growth in 48 hours. 03/11/18 19:00 Blood Culture - Preliminary Blood Culture (Wb) - Anticubital Right No growth in 48 hours. Laboratory Tests Past 24 Hrs 03/16/18 03/16/18 03/16/18 05:55 05:55 05:55 WBC 14.0 H RBC 3.05 L Hgb 8.0 L Hct 24.9 L MCV 81.6 MCH 26.2 L MCHC 32.1 RDW 16.7 H RDW Differential 48.8 H Plt Count 167 MPV 9.8 Neut % (Auto) Not Reportable Absolute Neuts (auto) 12.3 H Absolute Lymphs (auto) 0.84 Total Counted 100 Neutrophils % (Manual) 86 H Band Neutrophils % 2 Lymphocytes % (Manual) 6 L Monocytes % (Manual) 3 Metamyelocytes % 2 H Myelocytes % 1 H Diff Path Review May foll Platelet Estimate ADEQUATE Immature Plt Fraction RBC Morphology NORM C+C Retic Count Immature Retic Fraction Retic Hgb Equivalent PT INR APTT Sodium 139 Potassium 3.8 Chloride 114 H Carbon Dioxide 11.0 L Anion Gap 14 BUN 86 H Creatinine 4.92 H Estim Creat Clear Calc 9.02 Est GFR (MDRD) Af Amer 11 L Est GFR (MDRD) Non-Af 9 L BUN/Creatinine Ratio 17.5 Glucose 100 Calcium 8.1 L Magnesium 1.8 Iron TIBC Iron Saturation Ferritin 03/16/18 03/16/18 03/16/18 05:56 05:56 10:55 WBC RBC Hgb Hct MCV MCH MCHC RDW RDW Differential Plt Count MPV Neut % (Auto) Absolute Neuts (auto) Absolute Lymphs (auto) Total Counted Neutrophils % (Manual) Band Neutrophils % Lymphocytes % (Manual) Monocytes % (Manual) Metamyelocytes % Myelocytes % Diff Path Review Platelet Estimate Immature Plt Fraction 3.1 RBC Morphology Retic Count 0.56 Immature Retic Fraction 18.00 H Retic Hgb Equivalent 21.1 L PT 15.2 H INR 1.2 APTT 40.2 H Sodium Potassium Chloride Carbon Dioxide Anion Gap BUN Creatinine Estim Creat Clear Calc Est GFR (MDRD) Af Amer Est GFR (MDRD) Non-Af BUN/Creatinine Ratio Glucose Calcium Magnesium Iron 23 L TIBC 241 L Iron Saturation 9.5 L Ferritin 94 Medical Necessity - Tobacco Use Smoking Status: Former smoker Tobacco Use: Non-smoker Assessment/Plan Active and Suspected Problems CAP (community acquired pneumonia) (Acute) [place] CKD Stage 3 (Acute) 1. [place] secondary to mechanical obstruction secondary to complete uterine prolapse-status post pessary, unfortunate deterioration in renal function after this was done yesterday. She will be looking for nephrostomy tube placement. Maintain Cassidy catheter for now. Nephrology and urology on board. Nephrology is started on phosphate binders, bicarb, following renal profiles and AH and vitamin D as calcium was low. 2. Severe sepsis secondary to right lower lobe pneumonia-continue Augmentin. Continues to have mildly productive cough with yellow to clear mucus occasionally, no shortness of breath, no increased oxygen demand. Will need follow-up with her PCP and likely a repeat chest x-ray in 1 month. To need to have an elevated white count at 14,000 however this is down from admission and she is afebrile without worsening of symptoms. Today is day 6 of antibiotic therapy, discontinue after tomorrow. 3. Hypertension-stable 4. Moderate protein malnutrition-dietary eval recommendations 5. COPD-breathing stable 6. Normocytic anemia-iron deficiency, oral iron started. No signs of bleeding DVT prophylaxis: Heparin Discharge planning home when renal function improves. Reevaluate in morning as nephrostomy tubes were placed today. This patient was seen by Prakash Campos PA-C under the supervision of Doctor Ornelas. <Kassandra Ornelas - Last Filed: 03/16/18 14:32> - Physical Exam Vital Signs Temp Pulse Resp BP Pulse Ox 97.8 F 82 18 117/72 97 03/16/18 13:35 03/16/18 13:35 03/16/18 13:35 03/16/18 13:35 03/16/18 13:35 Oxygen Flow Rate (L/min) 2 Oxygen Delivery Method Room Air Weight: 56.1 kg Body Mass Index (BMI) 22.6 Intake and Output for Last 24 Hours 03/14/18 03/15/18 03/16/18 23:59 23:59 23:59 Intake Total 3501 / 3501 1428 / 1428 639 / 639 Output Total 4490 / 4490 2950 / 2950 1500 / 1500 Balance -989 / -989 -1522 / -1522 -861 / -861 Microbiology Past 72 Hours 03/11/18 20:41 Gram Stain - Final Sputum, Expectorated/Coughed Respiratory Culture - Final Staphylococcus aureus Presumptive C albicans 03/11/18 19:25 Blood Culture - Preliminary Blood Culture (Wb) - Right Hand No growth in 48 hours. 03/11/18 19:00 Blood Culture - Preliminary Blood Culture (Wb) - Anticubital Right No growth in 48 hours. Laboratory Tests Past 24 Hrs 03/16/18 03/16/18 03/16/18 05:55 05:55 05:55 WBC 14.0 H RBC 3.05 L Hgb 8.0 L Hct 24.9 L MCV 81.6 MCH 26.2 L MCHC 32.1 RDW 16.7 H RDW Differential 48.8 H Plt Count 167 MPV 9.8 Neut % (Auto) Not Reportable Absolute Neuts (auto) 12.3 H Absolute Lymphs (auto) 0.84 Total Counted 100 Neutrophils % (Manual) 86 H Band Neutrophils % 2 Lymphocytes % (Manual) 6 L Monocytes % (Manual) 3 Metamyelocytes % 2 H Myelocytes % 1 H Diff Path Review May foll Platelet Estimate ADEQUATE Immature Plt Fraction RBC Morphology NORM C+C Retic Count Immature Retic Fraction Retic Hgb Equivalent PT INR APTT Sodium 139 Potassium 3.8 Chloride 114 H Carbon Dioxide 11.0 L Anion Gap 14 BUN 86 H Creatinine 4.92 H Estim Creat Clear Calc 9.02 Est GFR (MDRD) Af Amer 11 L Est GFR (MDRD) Non-Af 9 L BUN/Creatinine Ratio 17.5 Glucose 100 Calcium 8.1 L Magnesium 1.8 Iron TIBC Iron Saturation Ferritin 03/16/18 03/16/18 03/16/18 05:56 05:56 10:55 WBC RBC Hgb Hct MCV MCH MCHC RDW RDW Differential Plt Count MPV Neut % (Auto) Absolute Neuts (auto) Absolute Lymphs (auto) Total Counted Neutrophils % (Manual) Band Neutrophils % Lymphocytes % (Manual) Monocytes % (Manual) Metamyelocytes % Myelocytes % Diff Path Review Platelet Estimate Immature Plt Fraction 3.1 RBC Morphology Retic Count 0.56 Immature Retic Fraction 18.00 H Retic Hgb Equivalent 21.1 L PT 15.2 H INR 1.2 APTT 40.2 H Sodium Potassium Chloride Carbon Dioxide Anion Gap BUN Creatinine Estim Creat Clear Calc Est GFR (MDRD) Af Amer Est GFR (MDRD) Non-Af BUN/Creatinine Ratio Glucose Calcium Magnesium Iron 23 L TIBC 241 L Iron Saturation 9.5 L Ferritin 94 Assessment/Plan Patient was seen and examined. Denies any new complaints. No fever or chills. Remains off oxygen. Vitals were reviewed, stable. Labs reviewed, unchanged renal function, slightly worse. Discussed with Dr. Yusuf and Dr. Dickerson, patient will have nephrostomy tube bilaterally placed today by radiology. We will up with blood work in a.m. Code Visit Inpatient E&M: [id number] Subs Hosp L3
[2018-03-16 14:35] LABS: Pathologist Review Reviewed
--- NOTE | 2018-03-16 17:19 | PN.RENAL_ITS ---
Patient Problems: Active and Suspected Problems CAP (community acquired pneumonia) (Acute) [place] CKD Stage 3 (Acute) Subjective: no change in clinical status. Urine output has significantly improved past 2 days with renal fxn essentially unchanged. No uremic symptoms. - Physical Exam General: Alert, Oriented x3 Vital Signs Temp Pulse Resp BP Pulse Ox 97.8 F 89 16 117/72 97 03/16/18 13:35 03/16/18 15:36 03/16/18 15:36 03/16/18 13:35 03/16/18 13:35 Oxygen Flow Rate (L/min) 2 Oxygen Delivery Method Room Air Weight: 56.1 kg Body Mass Index (BMI) 22.6 Intake and Output for Last 24 Hours 03/14/18 03/15/18 03/16/18 23:59 23:59 23:59 Intake Total 3501 / 3501 1428 / 1428 639 / 639 Output Total 4490 / 4490 2950 / 2950 1500 / 1500 Balance -989 / -989 -1522 / -1522 -861 / -861 Microbiology Past 72 Hours 03/11/18 20:41 Gram Stain - Final Sputum, Expectorated/Coughed Respiratory Culture - Final Staphylococcus aureus Presumptive C albicans 03/11/18 19:25 Blood Culture - Preliminary Blood Culture (Wb) - Right Hand No growth in 48 hours. 03/11/18 19:00 Blood Culture - Preliminary Blood Culture (Wb) - Anticubital Right No growth in 48 hours. Laboratory Tests Past 24 Hrs 03/16/18 03/16/18 03/16/18 05:55 05:55 05:55 WBC 14.0 H RBC 3.05 L Hgb 8.0 L Hct 24.9 L MCV 81.6 MCH 26.2 L MCHC 32.1 RDW 16.7 H RDW Differential 48.8 H Plt Count 167 MPV 9.8 Neut % (Auto) Not Reportable Absolute Neuts (auto) 12.3 H Absolute Lymphs (auto) 0.84 Total Counted 100 Neutrophils % (Manual) 86 H Band Neutrophils % 2 Lymphocytes % (Manual) 6 L Monocytes % (Manual) 3 Metamyelocytes % 2 H Myelocytes % 1 H Diff Path Review Reviewed Platelet Estimate ADEQUATE Immature Plt Fraction RBC Morphology NORM C+C Retic Count Immature Retic Fraction Retic Hgb Equivalent PT INR APTT Sodium 139 Potassium 3.8 Chloride 114 H Carbon Dioxide 11.0 L Anion Gap 14 BUN 86 H Creatinine 4.92 H Estim Creat Clear Calc 9.02 Est GFR (MDRD) Af Amer 11 L Est GFR (MDRD) Non-Af 9 L BUN/Creatinine Ratio 17.5 Glucose 100 Calcium 8.1 L Magnesium 1.8 Iron TIBC Iron Saturation Ferritin 03/16/18 03/16/18 03/16/18 05:56 05:56 10:55 WBC RBC Hgb Hct MCV MCH MCHC RDW RDW Differential Plt Count MPV Neut % (Auto) Absolute Neuts (auto) Absolute Lymphs (auto) Total Counted Neutrophils % (Manual) Band Neutrophils % Lymphocytes % (Manual) Monocytes % (Manual) Metamyelocytes % Myelocytes % Diff Path Review Platelet Estimate Immature Plt Fraction 3.1 RBC Morphology Retic Count 0.56 Immature Retic Fraction 18.00 H Retic Hgb Equivalent 21.1 L PT 15.2 H INR 1.2 APTT 40.2 H Sodium Potassium Chloride Carbon Dioxide Anion Gap BUN Creatinine Estim Creat Clear Calc Est GFR (MDRD) Af Amer Est GFR (MDRD) Non-Af BUN/Creatinine Ratio Glucose Calcium Magnesium Iron 23 L TIBC 241 L Iron Saturation 9.5 L Ferritin 94 Medical Necessity - Tobacco Use Smoking Status: Former smoker Tobacco Use: Non-smoker Assessment/Plan Active and Suspected Problems CAP (community acquired pneumonia) (Acute) [place] CKD Stage 3 (Acute) 1. Acute kidney injury versus chronic kidney disease with creatinine of 5.88 on admission now at 4.9 with increased urine output past 2 days. Suspect has post ATN diuresis. will replace sodium bicarbonate and continue to hold on dialysis for now. Likely chronic kidney disease with acute component from obstructive nephropathy s/p BL ureteral stents. Creatinine has been 0.95 in 2012 , 3.3 in 2012, 2.5 in July 2014. Agree with PNT if uterine prolapse not corrected. May need to dc with cassidy vs PNT. Continue to monitor renal function and watch for recovery. 2. Hypokalemia replace as needed 3. Metabolic acidosis. continue sodium bicarbonate iv, po 4. Check vit D, PTH in am. 5. Iron def Anemia start iv/oral iron 6. HTN continue amlodipine. DW primary service
[2018-03-16] MEDS: Ferrous Sulfate 325 MG Tablet PO (18:22)
[2018-03-16] MEDS: Ondansetron 4 MG/2 ML Vial IV (21:16)
[2018-03-16] MEDS: MELATONIN 3 MG TABLET PO (21:27)
[2018-03-16] MEDS: Sodium Bicarbonate 650 MG Tablet PO (21:27)
[2018-03-17] VITALS (8 sets, daily range): BP systolic 90–91; BP diastolic 52–56; PULSE 79–101; RESP 16–18; TEMP 36.5–36.8; O2SAT 94–97
[2018-03-17 07:21] LABS: Hematocrit 15.8 % (37-47); Hemoglobin 5.1 g/dl (12.0-15.0); Mean Corp Hgb Conc 32.3 g/gl (32-36); Mean Corpuscular Volume 80.6 fL (81-99); Mean Platelet Vol. 10.2 fl (6.2-12.0); Platelet Count 103 K/mm3 (150-450); RBC Distribution Width CV 17.3 % (11.6-14.6); RBC Distribution Width SD 51.1 fl (35.1-43.9); Red Blood Count 1.96 M/mm3 (4.2-5.4); White Blood Count 19.8 K/mm3 (4.4-11.0)
[2018-03-17 07:24] LABS: Albumin, Serum 2.4 g/dL (3.2-5.0); BUN 92 mg/dL (7-18); BUN/Creat Ratio 16.4 RATIO (10-20); Chloride 109 mmol/L (98-107); Creatinine, Serum 5.61 mg/dL (0.55-1.02); EST Glomerular Filtration Rate 8 mL/min (>60); Est Glom Filt Rate - Afr Amer 10 mL/min (>60); Estimated Creatinine Clearance 7.91 ml/min; Glucose 88 mg/dL (74-106); Phosphorus 8.5 mg/dL (2.5-4.9); Potassium 4.6 mmol/L (3.5-5.1); Scan Indicated on CBC? Y/N YES- FLAGS NOTED; Sodium Level 135 mmol/L (136-145)
--- NOTE | 2018-03-17 07:36 | CT_ITS ---
STUDY: CT ABDOMEN AND PELVIS WITHOUT CONTRAST REASON FOR EXAM: Female, 67 years old. Acute renal failure RADIATION DOSAGE (If Supplied By Facility): CTDIvol = ( 6.25 ) mGy, DLP = ( 335.72 ) mGycm TECHNIQUE: Transaxial images were obtained from the dome of the diaphragm to the symphysis pubis without oral contrast, and without intravenous contrast. Sagittal and coronal images were reconstructed. Individualized dose optimization techniques were used for this CT. COMPARISON: March 12, 2018. FINDINGS: The visualized lung bases demonstrate mild emphysematous changes. Right basilar consolidation/atelectasis with pleural effusion. The visualized portions of the heart are within normal limits. Normal liver. Normal gallbladder and extrahepatic biliary system. Granulomatous calcifications in the spleen. Normal pancreas. Mild upper abdominal ascites. Normal bilateral adrenal glands. Interval nephrostomy is noted of the right kidney. Enlarged right kidney with subcapsular hematoma. There is right perinephric stranding with mild retroperitoneal hemorrhage. Normal left kidney with resolved hydronephrosis. Interval placement of bilateral ureteral stents. Normal visualized stomach. Normal small intestine. Diverticulosis of the colon. Proximal colonic fecal retention. The appendix is nonvisualized. Calcified abdominal aorta. Normal inferior vena cava. Normal retroperitoneum. Wall thickening of the urinary bladder. There is pelvic free fluid. Interval placement of a supportive ring in the pelvis. Normal abdominal wall. Normal osseous structures. CT/Abdomen/Pelvis without Cont IMPRESSION: Right basilar consolidation/atelectasis with small pleural effusion. Interval placement of right nephrostomy. Interval placement of bilateral ureteral stents. Subcapsular hematoma. Right kidney with mild right perinephric stranding and retroperitoneal hemorrhage. New upper abdominal ascites and pelvic free fluid. Interval placement of a supportive ring in the pelvis. Wall thickening of the urinary bladder. Colonic diverticulosis. Electronically Signed: Tobi Diaz DO at 9:01 EDT Tel [phone], Service support ,
[2018-03-17] MEDS: Ipratropium/Albuterol Sulfate 3 ML AMPUL.NEB INHALATION (07:41)
--- NOTE | 2018-03-17 08:08 | RAD_ITS ---
STUDY: X-RAY CHEST REASON FOR EXAM: Female, 67 years old. Cough history lung cancer TECHNIQUE: PA and lateral views of the chest. COMPARISON: March 11, 2018 chest x-ray FINDINGS: Since prior study there is lesser density within the right lung For the lesser expansion. There is scarring in the mid right lung zone. There surgical clips in the right apex. The left lung is relatively clear. There is a visualized right upper quadrant pigtail catheter. There is a left-sided double J stent. There is right-sided double-J stent. Normal size heart. Normal mediastinum and norma. Normal visualized pulmonary arteries. There is atherosclerotic calcification of the aortic arch with tortuosity. There are diffuse degenerative changes of the visualized thoracic spine. Normal visualized ribs, clavicles, and shoulders. RAD/Chest PA and Lateral IMPRESSION: Small right effusion and atelectasis slightly improved since prior chest x-ray March 11, 2018. Follow-up CT scan of the chest would be suggested and can be performed without contrast to evaluate the pulmonary parenchyma. Partially visualized renal stents. Electronically Signed: Becki Read MD at 8:45 EDT Tel , Service support ,
[2018-03-17 09:30] LABS: Absolute Lymphocyte Count 1.06 X10^3/ul (0.83-4.51); Absolute Neutrophil Count 18.9 X10^3/uL (2.0-7.7); Basophil# 0.03 X10^3/uL; Basophil% 0.1 % (0-1); Differential Indicated SCAN CRITERIA MET; Eosinophil# 0.05 X10^3/uL; Eosinophils% 0.2 % (0-5); Hematocrit 14.5 % (37-47); Hemoglobin 4.6 g/dl (12.0-15.0); Lymphocyte # 1.06 X10^3/ul (4.0); Lymphocyte % 4.7 % (19-41); Mean Corp Hgb Conc 31.7 g/gl (32-36); Mean Corpuscular Hgb 26.3 pg (27.0-32.0); Mean Corpuscular Volume 82.9 fL (81-99); Mean Platelet Vol. 10.9 fl (6.2-12.0); Monocyte# 0.95 X10^3/uL; Monocyte% 4.2 % (0-10); Neutrophil # 18.94 X10^3/uL (2.7-7.7); Neutrophil % 84.1 % (47-70); POSITIVE COUNT YES; POSITIVE DIFFERENTIAL NO; POSITIVE MORPHOLOGY YES; Platelet Count 116 K/mm3 (150-450); RBC Distribution Width CV 16.7 % (11.6-14.6); RBC Distribution Width SD 48.1 fl (35.1-43.9); Red Blood Count 1.75 M/mm3 (4.2-5.4); White Blood Count 22.5 K/mm3 (4.4-11.0)
[2018-03-17] MEDS: fentaNYL 100 MCG/2 ML Ampul 12.5 MCG IV (10:47)
--- NOTE | 2018-03-17 10:50 | PCM.DC ---
- Discharge Diagnoses Current Active Problems: Current Active and Chronic Problems CAP (community acquired pneumonia) (Acute) MILTON ON CKD Stage 3 (Acute) COPD (chronic obstructive pulmonary disease) (Chronic) Complete uterine prolapse (Chronic) Allergies/Adverse Reactions: Allergies erythromycin base [Erythromycin Base] Adverse Reaction (Verified 03/11/18 17:05) Nausea Medications to take at Discharge NK [NK] 03/11/18 Primary Care Physician: Care Physician,No Primary [Primary Care Provider] - Please Follow Up With: Goemz Brown MD Proposed Discharge Date: 03/17/18
[2018-03-17] MEDS: 0.9% Normal Saline 1,000 ML 125 ML IV (11:12)
--- NOTE | 2018-03-17 14:11 | PCM.DC.SUM ---
<Prakash Campos - Last Filed: 03/17/18 14:11> Discharge Date and Diagnosis Date of Admission: 03/11/18 Date of Discharge: 03/17/18 - Primary Discharge Diagnosis Acute blood loss anemia secondary to retroperitoneal bleed secondary to nephrostomy tube placement complication Acute kidney injury secondary to post renal obstruction secondary to uterine prolapse Severe sepsis secondary to right lower lobe community-acquired pneumonia Hypertension Moderate protein calorie malnutrition COPD without acute exacerbation - Secondary Discharge Diagnosis Chronic Problems COPD (chronic obstructive pulmonary disease) (Chronic) Complete uterine prolapse (Chronic) History of lung cancer (Chronic) Benign hypertension (Chronic) Hospital Course and Treatment Imaging Results: RAD/Chest PA and Lateral IMPRESSION: Extensive infiltrate and/or atelectasis appearing to be in the superior segment of the right lower lobe. This is new in the interval. There may be underlying fibrotic changes as well. There is status post surgical changes of the right lower and upper lobes with associated right hemithoracic volume loss. Right costo phrenic angle blunting consistent with small effusion or pleural reaction. Calcified plaques of the aortic arch. US/Kidney and Bladder IMPRESSION: Severe bilateral hydronephrosis of uncertain etiology. There is no demonstrated stone or mass on this study. CT/Abdomen/Pelvis without Cont IMPRESSION: Left hydronephrosis and hydroureter with cortical thinning of the left kidney. This may be chronic in nature. Small fatty umbilical hernia. Right lower lobe consolidation. CT/Abdomen/Pelvis without Cont IMPRESSION: Right basilar consolidation/atelectasis with small pleural effusion. Interval placement of right nephrostomy. Interval placement of bilateral ureteral stents. Subcapsular hematoma. Right kidney with mild right perinephric stranding and retroperitoneal hemorrhage. New upper abdominal ascites and pelvic free fluid. Interval placement of a supportive ring in the pelvis. Wall thickening of the urinary bladder. Colonic diverticulosis. RAD/Chest PA and Lateral IMPRESSION: Small right effusion and atelectasis slightly improved since prior chest x-ray March 11, 2018. Follow-up CT scan of the chest would be suggested and can be performed without contrast to evaluate the pulmonary parenchyma. Partially visualized renal stents. Consultations: Paramjit-nephrology Tuan-urology Benekos - OBGYN Operations: - - Nephrostomy tube placement, pessary placement, ureter placement Summary of Care Provided: Physical exam on day of discharge: General: Resting comfortably NAD Psych: A/Ox3 normal affect HEENT: PEARRLA AT NC Neck: Supple NT CV: RRR no m/t/r/g/h Resp: CTA Abd: [id number] Soft NT no guarding or rigidity Ext: DP2+= no edema Skin: W/D normal turgor Lymph/Heme: No active bleeding or adenopathy Neuro: CN2-12 intact Hospital course: The patient is a 67 year old F who presented to the emergency room with increased shortness of breath and cough for 1 week. She had a history of COPD, CKD stage III, history of lung cancer that is post partial lobectomy, and hypertension. She was found to be septic with increased lactic acid, right lower lobe pneumonia, leukocytosis, tachycardia and tachypnea. She was admitted to the progressive care unit and placed on telemetry monitoring. She was also found to have MILTON with a markedly elevated creatinine and prior normal creatinine. Nephrology was consulted. She had significant bilateral hydronephrosis. Urology was consulted as she was found that she had a severe uterine pleural prolapse and this was a post renal obstructive azotemia. Stents were placed. Her renal function did not improve. It wass felt that she may benefit from the placement of a pessary so CAREER SPECIALIST was consulted and this was done as an inpatient. Unfortunately her renal function did not improve. It was decided that she would have nephrostomy tube placement. This was done under CT guidance by interventional radiology right-sided. The following morning her hemoglobin dropped significantly and she developed severe 8 out of 10 pain over the area of her nephrostomy tube. In the morning her hemoglobin had gone from 8.0-5.1, and a repeat later the morning in the morning dropped further from 5.1-4.6.. A stat CT of her abdomen was done which did reveal retroperitoneal bleeding and a subcapsular hematoma. She was ordered for 3 units of packed red blood cells stat as well as an emergent transfer to [facility] to their ICU. While here she did complete a total of 7 days of antibiotic therapy for pneumonia initially with azithromycin and Rocephin, transitioned to oral Augmentin adjusted for renal dose. Her leukocytosis also significantly elevated from 14.0-19.8 the morning of the bleeding. A chest x-ray was done the morning she was transferred showing a small right effusion and atelectasis slightly improved since prior chest x-ray At this time she is in guarded condition and is being transferred emergently to [facility]. This patient was seen by Prakash Campos PA-C under the supervision of Doctor Ornelas. [] Discharge Diet: - - As directed by accepting facility Discharge Activity: - - As directed by accepting facility Home Medications: Medications to take at Discharge NK [NK] 03/11/18 Primary Care Physician: Care Physician,No Primary [Primary Care Provider] - Please Follow Up With: Gomez Brown MD Please Follow Up With: Annita Yusuf DO When: as directed Please Follow Up With: Maisha Gallo MD When: as directed Please Follow Up With: Neymar Dickerson MD When: as directed Disposition: Acute care Hospital Minutes spent on discharge:: 40 Patient Condition:: Guarded Medical Necessity - Tobacco Use Smoking Status: Former smoker Tobacco Use: Non-smoker Meaningful Use Info Meaningful Use Diagnoses (Choose all that apply): None applicable <Kassandra Ornelas - Last Filed: 03/17/18 14:46> Discharge Date and Diagnosis - Secondary Discharge Diagnosis Chronic Problems COPD (chronic obstructive pulmonary disease) (Chronic) Complete uterine prolapse (Chronic) History of lung cancer (Chronic) Benign hypertension (Chronic) Hospital Course and Treatment Imaging Results: 03/17/18 07:36 CT Abd [Abdomen/Pelvis without Cont] [CT] Urgent 03/17/18 08:08 CXR [Chest PA and Lateral] [RAD] Routine Summary of Care Provided: The patient is a 67 year old F [] Minutes spent on discharge:: 60 - Co-ordinating transfer to an acute care hospital for emergent care Code Visit Inpatient E&M: 03861 Disch Hosp
--- NOTE | 2018-03-17 14:21 | DS.PCM_ITS ---
<Prakash Campos - Last Filed: 03/17/18 14:11> Discharge Date and Diagnosis Date of Admission: 03/11/18 Date of Discharge: 03/17/18 - Primary Discharge Diagnosis Acute blood loss anemia secondary to retroperitoneal bleed secondary to nephrostomy tube placement complication Acute kidney injury secondary to post renal obstruction secondary to uterine prolapse Severe sepsis secondary to right lower lobe community-acquired pneumonia Hypertension Moderate protein calorie malnutrition COPD without acute exacerbation - Secondary Discharge Diagnosis Chronic Problems COPD (chronic obstructive pulmonary disease) (Chronic) Complete uterine prolapse (Chronic) History of lung cancer (Chronic) Benign hypertension (Chronic) Hospital Course and Treatment Imaging Results: RAD/Chest PA and Lateral IMPRESSION: Extensive infiltrate and/or atelectasis appearing to be in the superior segment of the right lower lobe. This is new in the interval. There may be underlying fibrotic changes as well. There is status post surgical changes of the right lower and upper lobes with associated right hemithoracic volume loss. Right costo phrenic angle blunting consistent with small effusion or pleural reaction. Calcified plaques of the aortic arch. US/Kidney and Bladder IMPRESSION: Severe bilateral hydronephrosis of uncertain etiology. There is no demonstrated stone or mass on this study. CT/Abdomen/Pelvis without Cont IMPRESSION: Left hydronephrosis and hydroureter with cortical thinning of the left kidney. This may be chronic in nature. Small fatty umbilical hernia. Right lower lobe consolidation. CT/Abdomen/Pelvis without Cont IMPRESSION: Right basilar consolidation/atelectasis with small pleural effusion. Interval placement of right nephrostomy. Interval placement of bilateral ureteral stents. Subcapsular hematoma. Right kidney with mild right perinephric stranding and retroperitoneal hemorrhage. New upper abdominal ascites and pelvic free fluid. Interval placement of a supportive ring in the pelvis. Wall thickening of the urinary bladder. Colonic diverticulosis. RAD/Chest PA and Lateral IMPRESSION: Small right effusion and atelectasis slightly improved since prior chest x-ray March 11, 2018. Follow-up CT scan of the chest would be suggested and can be performed without contrast to evaluate the pulmonary parenchyma. Partially visualized renal stents. Consultations: Paramjit-nephrology Tuan-urology Benekos - OBGYN Operations: - - Nephrostomy tube placement, pessary placement, ureter placement Summary of Care Provided: Physical exam on day of discharge: General: Resting comfortably NAD Psych: A/Ox3 normal affect HEENT: PEARRLA AT NC Neck: Supple NT CV: RRR no m/t/r/g/h Resp: CTA Abd: [id number] Soft NT no guarding or rigidity Ext: DP2+= no edema Skin: W/D normal turgor Lymph/Heme: No active bleeding or adenopathy Neuro: CN2-12 intact Hospital course: The patient is a 67 year old F who presented to the emergency room with increased shortness of breath and cough for 1 week. She had a history of COPD, CKD stage III, history of lung cancer that is post partial lobectomy, and hypertension. She was found to be septic with increased lactic acid, right lower lobe pneumonia, leukocytosis, tachycardia and tachypnea. She was admitted to the progressive care unit and placed on telemetry monitoring. She was also found to have MILTON with a markedly elevated creatinine and prior normal creatinine. Nephrology was consulted. She had significant bilateral hydronephrosis. Urology was consulted as she was found that she had a severe uterine pleural prolapse and this was a post renal obstructive azotemia. Stents were placed. Her renal function did not improve. It wass felt that she may benefit from the placement of a pessary so HOME CARE ADMINISTRATOR was consulted and this was done as an inpatient. Unfortunately her renal function did not improve. It was decided that she would have nephrostomy tube placement. This was done under CT guidance by interventional radiology right-sided. The following morning her hemoglobin dropped significantly and she developed severe 8 out of 10 pain over the area of her nephrostomy tube. In the morning her hemoglobin had gone from 8.0-5.1, and a repeat later the morning in the morning dropped further from 5.1-4.6.. A stat CT of her abdomen was done which did reveal retroperitoneal bleeding and a subcapsular hematoma. She was ordered for 3 units of packed red blood cells stat as well as an emergent transfer to [facility] to their ICU. While here she did complete a total of 7 days of antibiotic therapy for pneumonia initially with azithromycin and Rocephin, transitioned to oral Augmentin adjusted for renal dose. Her leukocytosis also significantly elevated from 14.0-19.8 the morning of the bleeding. A chest x- ray was done the morning she was transferred showing a small right effusion and atelectasis slightly improved since prior chest x-ray At this time she is in guarded condition and is being transferred emergently to [facility]. This patient was seen by Prakash Campos PA-C under the supervision of Doctor Ornelas. [] Discharge Diet: - - As directed by accepting facility Discharge Activity: - - As directed by accepting facility Home Medications: Medications to take at Discharge NK [NK] 03/11/18 Primary Care Physician: Care Physician,No Primary [Primary Care Provider] - Please Follow Up With: Gomez Brown MD Please Follow Up With: Annita Yusuf DO When: as directed Please Follow Up With: Maisha Gallo MD When: as directed Please Follow Up With: Neymar Dickerson MD When: as directed Disposition: Acute care Hospital Minutes spent on discharge:: 40 Patient Condition:: Guarded Medical Necessity - Tobacco Use Smoking Status: Former smoker Tobacco Use: Non-smoker Meaningful Use Info Meaningful Use Diagnoses (Choose all that apply): None applicable <Kassandra Ornelas - Last Filed: 03/17/18 14:46> Discharge Date and Diagnosis - Secondary Discharge Diagnosis Chronic Problems COPD (chronic obstructive pulmonary disease) (Chronic) Complete uterine prolapse (Chronic) History of lung cancer (Chronic) Benign hypertension (Chronic) Hospital Course and Treatment Imaging Results: 03/17/18 07:36 CT Abd [Abdomen/Pelvis without Cont] [CT] Urgent 03/17/18 08:08 CXR [Chest PA and Lateral] [RAD] Routine Summary of Care Provided: The patient is a 67 year old F [] Minutes spent on discharge:: 60 - Co-ordinating transfer to an acute care hospital for emergent care Code Visit Inpatient E&M: [id number] Disch Hosp
[2018-03-19 09:27] LABS: PTHIN 575.6 pg/mL (18.4-80.1)
[2018-03-19 09:28] LABS: Vitamin D,25 Hydroxy 15.8 ng/mL (29.95-100.01)
[2018-03-19 14:00] LABS: Pathologist Review Reviewed
[2018-03-19 14:01] LABS: Pathologist Review Reviewed
== END 2018-03-17 12:05 | disposition short-term general hospital (02) | DRG 871 ==
LOC: ED 17:52 → PCU 19:07
PROVIDERS: Internal Medicine Nephrology; Physician Assistant; Radiology Diagnostic Radiology; Urology; Admitting Provider Internal Medicine; Emergency Provider Emergency Medicine; Visit Provider Internal Medicine
PROC: BT14ZZZ Fluoroscopy of Kidneys, Ureters and Bladder (ICD-10-PCS; principal; 2018-03-14 13:15)
DX: A41.9 Sepsis, unspecified organism (principal); J18.9 Pneumonia, unspecified organism; J44.0 Chronic obstructive pulmonary disease with (acute) lower respiratory infection; D62 Acute posthemorrhagic anemia; N17.9 Acute kidney failure, unspecified; T83.89XA Other specified complication of genitourinary prosthetic devices, implants and grafts, initial encounter; N13.30 Unspecified hydronephrosis; E44.0 Moderate protein-calorie malnutrition; N13.8 Other obstructive and reflux uropathy; E87.2 Acidosis; E87.1 Hypo-osmolality and hyponatremia; N99.840 Postprocedural hematoma of a genitourinary system organ or structure following a genitourinary system procedure; R65.20 Severe sepsis without septic shock; I12.9 Hypertensive chronic kidney disease with stage 1 through stage 4 chronic kidney disease, or unspecified chronic kidney disease; N18.3 Chronic kidney disease, stage 3 (moderate); Y73.8 Miscellaneous gastroenterology and urology devices associated with adverse incidents, not elsewhere classified; Z85.118 Personal history of other malignant neoplasm of bronchus and lung; Z87.891 Personal history of nicotine dependence; Z68.22 Body mass index [BMI] 22.0-22.9, adult; N81.3 Complete uterovaginal prolapse; E87.6 Hypokalemia; D50.9 Iron deficiency anemia, unspecified; R58 Hemorrhage, not elsewhere classified
CPT/HCPCS: 36415; 50395; 71046; 74176; 74485; 76000; 76770; 80048; 80069; 81002; 82306; 82570; 82728; 83540; 83550; 83605; 83735; 83970; 84300; 85025; 85027; 85045; 85610; 85730; 86850; 86900; 86920; 86922; 87040; 87070; 87077; 87186; 87205; 87449; 87641; 87804; 93005; 94640; 94667; 94668; 97110; 97116; 97162; 97165; 97530; 97802; 99156; 99157; 99283; J1756; J7030; J7040; J7050; P9016; A4216; C1769; J2405

== ENCOUNTER → 2018-05-03 10:23 | Outpatient (CLI) | payer MEDICARE, SELFPAY ==
--- NOTE | 2018-05-03 10:33 | RAD_ITS ---
STUDY: ANTEGRADE NEPHROSTOGRAM RIGHT REASON FOR EXAM: Female, 68 years old. Indwelling right nephrostomy catheter. FLUOROSCOPY TIME (if supplied): (34 seconds) minutes/seconds TECHNIQUE: A rover tender film was obtained. Following this, 10 cc of Isovue-300 was injected into the indwelling right nephrostomy tube. COMPARISON: None. FINDINGS: The tip of the tube is in the upper pole calyx of the right kidney. There is free flow of contrast into the renal pelvis and ureter down to the bladder. Indwelling bilateral ureteral stents are seen. RAD/Urography Antegrade Nephrostog IMPRESSION: The position of the right nephrostomy tube with patency of the right ureter. Electronically Signed: Hakan Barnes MD at 14:52 EDT Tel [phone], Service support ,
== END ==
DX: N13.30 Unspecified hydronephrosis (principal); N81.4 Uterovaginal prolapse, unspecified
CPT/HCPCS: 74425

== ENCOUNTER 2018-06-08 18:26 | Emergency (ER) | payer MEDICARE, SELFPAY ==
[2018-06-08] VITALS (7 sets, daily range): BP systolic 109–142; BP diastolic 65–76; PULSE 78–105; RESP 16–18; TEMP 37–38.2; O2SAT 96–98; BMI 20.8
--- NOTE | 2018-06-08 19:17 | CT_ITS ---
STUDY: CT ABDOMEN AND PELVIS WITHOUT CONTRAST REASON FOR EXAM: Female, 68 years old. Pain around nephrostomy tube over an drainage history of lung cancer RADIATION DOSAGE (If Supplied By Facility): CTDIvol = ( 6.04 ) mGy, DLP = ( 315.62 ) mGycm TECHNIQUE: Transaxial images were obtained from the dome of the diaphragm to the symphysis pubis without oral contrast, and without intravenous contrast. Sagittal and coronal images were reconstructed. Individualized dose optimization techniques were used for this CT. COMPARISON: None. FINDINGS: There is emphysematous change in the lung bases. There is a visualized dense calcification in the left hilum status post old granulomatous disease. There are coronary calcifications. The visualized portions of the heart are within normal limits. Normal liver. Normal gallbladder and extrahepatic biliary system. Normal spleen. There is diffuse atrophy of the pancreas. Normal bilateral adrenal glands. The right side nephrostomy tube is in the anterior aspect of the right kidney. Since prior study there is been interval development of a large thick walled mass with gas which may have developed in an area of prior hematoma. This mass now measures 7.9 x 7.6 x 10.0 cm. There is a right-sided double-J stent which is pushed forward. There is moderate to severe left renal atrophy. There is a left-sided double-J stent which is in the decompressed proximal left ureter. There is right-sided perinephric edema and inflammation. There is a thickened appearance of the distal esophagus. Normal small intestine. There is a fluid distended appearance of the ascending colon. There are numerous diverticula present within the descending colon without visualized diverticulitis. There is non-visualization of the appendix. The aorta is densely calcified. There is dense calcification of the superior mesenteric artery for which there is likely high-grade stenosis. Normal inferior vena cava. There is dense calcification of the bilateral iliac arteries. There are multiple reactive appearing right side retroperitoneal lymph nodes. There are bilateral double-J stents. There is a pessary in place in the vagina. The uterus is atrophied. There is no significant edema around the soft tissues around the nephrostomy tube. There is a somewhat increased sclerotic of the dragan which may represent renal osteodystrophy. There is degenerative change of the thoracolumbar spine with slight anterolisthesis at L4-L5. There is multilevel facet arthropathy. CT/Abdomen/Pelvis without Cont IMPRESSION: There is a large abscess in the right kidney in a location which was likely occupied by a hematoma seen on prior study in March 30. This large gas filled fluid filled thick walled fluid collection measures 7.9 x 7.6 x 10.1 cm. The right renal pelvis is compressed or decompressed. There is moderate to severe left renal atrophy. There is a left-sided double-J stent. Pessary in place. Coronary artery calcification Pulmonary emphysema Mild ileus. Diverticulosis without diverticulitis. Bony renal osteodystrophy. N.B. : The above information has been verbally conveyed by Becki Read MD to , Covering Physician, on 06/08/2018 20:58:13 (ET). Electronically Signed: Becki Read MD at 20:55 EDT Tel , Service support ,
--- NOTE | 2018-06-08 19:22 | ED.VISSUMM ---
- ER Visit Summary Date of Service: 06/08/18 Chief Complaint: Fever History of Present Illness: The patient is a 68 F who presented for right flank pain and generalized weakness. On arrival to the ED she was noted to have a fever. Patient states that she had a nephrostomy tube placed in the right kidney along with bilateral ureteral stents in March. She states she has not seen anyone for follow-up for this. She noted feeling poorly over the past couple of days and developed right flank pain today. Physical Examination: Blood pressure is 142/70, temperature 100.8, heart rate 105, respiratory rate 18, pulse ox 98% on room air. Patient sitting upright in bed. She is nontoxic appearing. Head neck examination unremarkable. Heart is regular rate and rhythm. Lung sounds are clear. Abdomen is soft with mild lower abdominal tenderness. No guarding or rebound. Back examination reveals right nephrostomy tube to be in place. Test Results: CBC was normal white count. Hemoglobin is 8.1. Chemistry studies reveal a sodium of 131, BUN 64, and 4.28. Urinalysis shows 10-25 white cells with [address] flank shows a large abscess in the right kidney in a location likely occupied by the previous hematoma. There is a large, gas-filled, fluid filled thick walled fluid collection measuring 7.9 x 7.6 x 10.1 cm. Blood and urine cultures were obtained. Emergency Department Course and Treatment: Patient is given Tylenol for fever along with IV fluids. Upon completion of CT scan dose of IV Rocephin as ordered. Test results were discussed with patient and family at bedside. I spoke with the transfer line at [facility] since that is where she was treated for this. Patient has been accepted by Dr. Birmingham and be sent to the ER. Treatment Plan: [] Disposition: Transfer Impression: Right renal abscess This note was generated with Profig dictation software. It may contain incorrect words, spelling, and punctuation that were not noted in review of the chart prior to signing ED Disposition - Plan for ED Patient: Chief Complaint: Fever Referrals: Care Physician,No Primary [Primary Care Provider] -
[2018-06-08 19:37] LABS: Bacteria 0 SEEN /hpf (None Seen); Mucous, Urine 0 SEEN /hpf (<or=2+)
[2018-06-08] MEDS: Acetaminophen 325 MG Tablet 650 MG PO (19:37)
[2018-06-08] MEDS: 0.9% Normal Saline 1,000 ML 150 ML IV (19:37)
[2018-06-08 19:41] LABS: Color, Urine Straw (Yellow); Glucose, Dipstick Normal (Normal); Ketone-Dipstick Negative (Negative); Leukocyte Esterase-Dipstick 500 /ul (Negative); Nitrite-Dipstick Negative (Negative); Occult Blood-Urine 10 /ul (Negative); Protein-Dipstick 100 mg/dl (Negative); Urine Bilirubin Dipstick Negative (Negative); Urine Clarity Cloudy (Clear); Urine Urobilinogen Normal (Normal); Urine pH 6.5 (5.0 - 8.0)
[2018-06-08 19:52] LABS: Anion Gap 12 (5-15); BUN 64 mg/dL (7-18); Calcium,Total 8.9 mg/dL (8.5-10.1); Chloride 101 mmol/L (98-107); Creatinine, Serum 4.28 mg/dL (0.55-1.02); EST Glomerular Filtration Rate 11 mL/min (>60); Est Glom Filt Rate - Afr Amer 13 mL/min (>60); Estimated Creatinine Clearance 10.23 ml/min; Glucose 95 mg/dL (74-106); Potassium 3.8 mmol/L (3.5-5.1); Sodium Level 131 mmol/L (136-145)
[2018-06-08 20:06] LABS: Amorphous Sediment 1+ URATE; Red Blood Cells-Urine 0-5 SEEN /hpf (0-5); Squamous Epithelial Cells - UA 0-5 SEEN /hpf (5-10); White Blood Cells 10-25 SEEN /hpf (0-5)
[2018-06-08 20:15] LABS: Absolute Lymphocyte Count 1.22 X10^3/ul (0.83-4.51); Absolute Neutrophil Count 7.5 X10^3/uL (2.0-7.7); Basophil# 0.02 X10^3/uL; Basophil% 0.2 % (0-1); Eosinophil# 0.03 X10^3/uL; Eosinophils% 0.3 % (0-5); Hematocrit 25.5 % (37-47); Hemoglobin 8.1 g/dl (12.0-15.0); Lymphocyte # 1.22 X10^3/ul (4.0); Lymphocyte % 12.7 % (19-41); Mean Corp Hgb Conc 31.8 g/gl (32-36); Mean Corpuscular Hgb 27.7 pg (27.0-32.0); Mean Corpuscular Volume 87.3 fL (81-99); Mean Platelet Vol. 8.9 fl (6.2-12.0); Monocyte# 0.83 X10^3/uL; Monocyte% 8.7 % (0-10); Neutrophil # 7.48 X10^3/uL (2.7-7.7); POSITIVE COUNT NO; POSITIVE DIFFERENTIAL NO; POSITIVE MORPHOLOGY NO; Platelet Count 304 K/mm3 (150-450); RBC Distribution Width CV 14.2 % (11.6-14.6); RBC Distribution Width SD 45.3 fl (35.1-43.9); Red Blood Count 2.92 M/mm3 (4.2-5.4); White Blood Count 9.6 K/mm3 (4.4-11.0)
[2018-06-08] MEDS: Ceftriaxone 1 GM/50 ML BAG IV (21:15)
== END 2018-06-08 23:10 | disposition short-term general hospital (02) ==
LOC: ED 18:59
PROVIDERS: Emergency Provider Emergency Medicine
DX: N15.1 Renal and perinephric abscess (principal); J44.9 Chronic obstructive pulmonary disease, unspecified; I12.9 Hypertensive chronic kidney disease with stage 1 through stage 4 chronic kidney disease, or unspecified chronic kidney disease; N18.9 Chronic kidney disease, unspecified; Z85.118 Personal history of other malignant neoplasm of bronchus and lung; Z90.49 Acquired absence of other specified parts of digestive tract; Z87.891 Personal history of nicotine dependence; Z79.899 Other long term (current) drug therapy
CPT/HCPCS: 74176; 80048; 81001; 85025; 87040; 87076; 87077; 87086; 87088; 87186; 96361; 96365; 96366; 99285; J7030

== ENCOUNTER → 2018-06-14 08:33 | Outpatient (CLI) | payer MEDICARE, SELFPAY ==
[2018-06-14 08:42] VITALS: BP 152/86; PULSE 77; RESP 16; TEMP 36.6; BMI 20.8
== END ==
PROVIDERS: Family Provider Internal Medicine; PCP Internal Medicine; Visit Provider Internal Medicine Infectious Disease
DX: N15.1 Renal and perinephric abscess (principal)
CPT/HCPCS: 96365; J7050; A4216; J0696

== ENCOUNTER → 2018-06-15 10:18 | Outpatient (CLI) | payer MEDICARE, SELFPAY ==
[2018-06-15 10:37] VITALS: BP 142/92; PULSE 72; RESP 16; TEMP 37.1; O2SAT 99
== END ==
PROVIDERS: Family Provider Internal Medicine; PCP Internal Medicine; Visit Provider Internal Medicine Infectious Disease
DX: N15.1 Renal and perinephric abscess (principal)
CPT/HCPCS: 96365; J7050; A4216; J0696

== ENCOUNTER 2018-06-16 10:14 | Outpatient (CLI) | payer MEDICARE, SELFPAY ==
[2018-06-16] MEDS: 0.9% NaCl VAD Flush 10 ML IV ×4 (10:30→11:39)
[2018-06-16 10:41] VITALS: BP 169/98; PULSE 78; RESP 16; TEMP 36.5; O2SAT 100
== END 2018-06-16 11:38 | disposition home or self-care (01) ==
LOC: MEDOUTP 10:14 → MS3 10:15
PROVIDERS: Family Provider Internal Medicine; PCP Internal Medicine; Visit Provider Internal Medicine Infectious Disease
DX: N15.1 Renal and perinephric abscess (principal)
CPT/HCPCS: 96365; A4216; J0696

== ENCOUNTER 2018-06-17 10:28 | Outpatient (CLI) | payer MEDICARE, SELFPAY ==
[2018-06-17] MEDS: 0.9% NaCl IVPB Med Flush (250 mL) 15 ML IV (10:49)
[2018-06-17] MEDS: 0.9% NaCl VAD Flush 10 ML IV (10:49)
[2018-06-17 10:56] VITALS: BP 150/79; PULSE 78; RESP 16; TEMP 36.6; O2SAT 99
== END 2018-06-17 11:48 | disposition home or self-care (01) ==
LOC: MEDOUTP 10:29 → MS3 10:30 → MEDOUTP 10:31 → MS3 10:38
PROVIDERS: Family Provider Internal Medicine; PCP Internal Medicine; Visit Provider Internal Medicine Infectious Disease
DX: N15.1 Renal and perinephric abscess (principal)
CPT/HCPCS: J7050; A4216; J0696

== ENCOUNTER → 2018-06-18 10:15 | Outpatient (CLI) | payer MEDICARE, SELFPAY ==
[2018-06-18 10:58] VITALS: BP 144/85; PULSE 74; RESP 18; TEMP 36.9; O2SAT 99; BMI 20.8
[2018-06-18 11:01] LABS: Absolute Lymphocyte Count 1.52 X10^3/ul (0.83-4.51); Absolute Neutrophil Count 3.3 X10^3/uL (2.0-7.7); Basophil# 0.03 X10^3/uL; Basophil% 0.6 % (0-1); Eosinophil# 0.19 X10^3/uL; Eosinophils% 3.5 % (0-5); Hematocrit 33.1 % (37-47); Hemoglobin 10.6 g/dl (12.0-15.0); Lymphocyte # 1.52 X10^3/ul (4.0); Lymphocyte % 27.9 % (19-41); Mean Corpuscular Hgb 28.9 pg (27.0-32.0); Mean Corpuscular Volume 90.2 fL (81-99); Mean Platelet Vol. 8.6 fl (6.2-12.0); Monocyte# 0.43 X10^3/uL; Monocyte% 7.9 % (0-10); Neutrophil # 3.25 X10^3/uL (2.7-7.7); Neutrophil % 59.5 % (47-70); Platelet Count 204 K/mm3 (150-450); RBC Distribution Width CV 15.2 % (11.6-14.6); RBC Distribution Width SD 48.9 fl (35.1-43.9); Red Blood Count 3.67 M/mm3 (4.2-5.4); White Blood Count 5.5 K/mm3 (4.4-11.0)
[2018-06-18 11:02] LABS: POSITIVE COUNT NO; POSITIVE DIFFERENTIAL NO; POSITIVE MORPHOLOGY NO
[2018-06-18 11:27] LABS: AST(SGOT) 11 U/L (15-37); Alanine Aminotransfer ALT/SGPT 15 U/L (13-56); Alkaline Phosphatase 79 U/L (45-117); Bilirubin, Direct 0.09 mg/dL (0.00-0.30); Creatinine, Serum 3.39 mg/dL (0.55-1.02); EST Glomerular Filtration Rate 14 mL/min (>60); Est Glom Filt Rate - Afr Amer 17 mL/min (>60); Estimated Creatinine Clearance 12.91 ml/min; Globulin 5.1 g/dL (2.2-4.2); Protein, Total 8.1 g/dL (6.4-8.2)
== END ==
PROVIDERS: Family Provider Internal Medicine; PCP Internal Medicine; Visit Provider Internal Medicine Infectious Disease
DX: N15.1 Renal and perinephric abscess (principal)
CPT/HCPCS: 96365; 80076; 82565; 85025; J7050; A4216; J0696

== ENCOUNTER → 2018-06-19 10:19 | Outpatient (CLI) | payer MEDICARE, SELFPAY ==
[2018-06-19 10:24] VITALS: BP 155/91; PULSE 75; RESP 16; TEMP 36.1; O2SAT 97
== END ==
PROVIDERS: Family Provider Internal Medicine; PCP Internal Medicine; Visit Provider Internal Medicine Infectious Disease
DX: N15.1 Renal and perinephric abscess (principal)
CPT/HCPCS: 96365; J7050; A4216; J0696

== ENCOUNTER → 2018-06-20 10:20 | Outpatient (CLI) | payer MEDICARE, SELFPAY ==
[2018-06-20 10:32] VITALS: PULSE 78; RESP 16; TEMP 36.8; O2SAT 98
[2018-06-20 10:34] VITALS: BP 149/61; PULSE 78; RESP 16; TEMP 36.8; O2SAT 98; BMI 20.2
== END ==
PROVIDERS: Family Provider Internal Medicine; PCP Internal Medicine; Visit Provider Internal Medicine Infectious Disease
DX: N15.1 Renal and perinephric abscess (principal)
CPT/HCPCS: 96365; J7050; A4216; J0696

== ENCOUNTER → 2018-06-21 10:20 | Outpatient (CLI) | payer MEDICARE, SELFPAY ==
[2018-06-21 11:09] VITALS: BP 147/88; PULSE 74; RESP 16; TEMP 37.3; O2SAT 100; BMI 20.2
== END ==
PROVIDERS: Family Provider Internal Medicine; PCP Internal Medicine; Visit Provider Internal Medicine Infectious Disease
DX: N15.1 Renal and perinephric abscess (principal)
CPT/HCPCS: 96365; J7050; A4216; J0696

== ENCOUNTER → 2018-06-22 10:21 | Outpatient (CLI) | payer MEDICARE, SELFPAY ==
[2018-06-22 11:02] VITALS: BP 153/81; PULSE 76; RESP 16; TEMP 36.6; O2SAT 100; BMI 20.2
== END ==
PROVIDERS: Family Provider Internal Medicine; PCP Internal Medicine; Visit Provider Internal Medicine Infectious Disease
DX: N15.1 Renal and perinephric abscess (principal)
CPT/HCPCS: 96365; J7050; A4216; J0696

== ENCOUNTER 2018-06-23 10:22 | Outpatient (CLI) | payer MEDICARE, SELFPAY ==
[2018-06-23 10:35] VITALS: BP 155/91; PULSE 82; RESP 18; TEMP 37; O2SAT 99
== END 2018-06-23 12:15 | disposition home or self-care (01) ==
LOC: MEDOUTP 10:24 → PCU 10:27
PROVIDERS: Family Provider Internal Medicine; PCP Internal Medicine; Visit Provider Internal Medicine Infectious Disease
DX: N15.1 Renal and perinephric abscess (principal)
CPT/HCPCS: 96365; J0696

== ENCOUNTER 2018-06-24 10:13 | Outpatient (CLI) | payer MEDICARE, SELFPAY ==
[2018-06-24 10:40] VITALS: BP 142/79; PULSE 80; RESP 18; TEMP 37.2; O2SAT 99
== END 2018-06-24 12:00 | disposition home or self-care (01) ==
LOC: MEDOUTP 10:15 → PCU 10:17
PROVIDERS: Family Provider Internal Medicine; PCP Internal Medicine; Visit Provider Internal Medicine Infectious Disease
DX: N15.1 Renal and perinephric abscess (principal)
CPT/HCPCS: 96365; J0696

== ENCOUNTER → 2018-06-25 10:18 | Outpatient (CLI) | payer MEDICARE, SELFPAY ==
[2018-06-25 10:49] VITALS: BP 160/90; PULSE 80; RESP 16; TEMP 36.6; O2SAT 100; BMI 20.2
[2018-06-25 11:04] LABS: Absolute Lymphocyte Count 1.33 X10^3/ul (0.83-4.51); Absolute Neutrophil Count 4.2 X10^3/uL (2.0-7.7); Basophil# 0.02 X10^3/uL; Basophil% 0.3 % (0-1); Eosinophil# 0.16 X10^3/uL; Eosinophils% 2.5 % (0-5); Hematocrit 33.1 % (37-47); Hemoglobin 10.4 g/dl (12.0-15.0); Lymphocyte # 1.33 X10^3/ul (4.0); Lymphocyte % 20.9 % (19-41); Mean Corp Hgb Conc 31.4 g/gl (32-36); Mean Corpuscular Hgb 28.5 pg (27.0-32.0); Mean Corpuscular Volume 90.7 fL (81-99); Mean Platelet Vol. 8.9 fl (6.2-12.0); Monocyte# 0.67 X10^3/uL; Monocyte% 10.5 % (0-10); Neutrophil # 4.18 X10^3/uL (2.7-7.7); Neutrophil % 65.8 % (47-70); POSITIVE COUNT NO; POSITIVE DIFFERENTIAL NO; POSITIVE MORPHOLOGY NO; Platelet Count 128 K/mm3 (150-450); RBC Distribution Width CV 15.6 % (11.6-14.6); RBC Distribution Width SD 52.1 fl (35.1-43.9); Red Blood Count 3.65 M/mm3 (4.2-5.4); White Blood Count 6.4 K/mm3 (4.4-11.0)
[2018-06-25 11:45] LABS: AST(SGOT) 12 U/L (15-37); Alanine Aminotransfer ALT/SGPT 14 U/L (13-56); Alkaline Phosphatase 84 U/L (45-117); Bilirubin, Direct 0.09 mg/dL (0.00-0.30); Creatinine, Serum 3.76 mg/dL (0.55-1.02); EST Glomerular Filtration Rate 13 mL/min (>60); Est Glom Filt Rate - Afr Amer 16 mL/min (>60); Estimated Creatinine Clearance 11.64 ml/min; Globulin 5.1 g/dL (2.2-4.2); Protein, Total 8.1 g/dL (6.4-8.2)
== END ==
PROVIDERS: Family Provider Internal Medicine; PCP Internal Medicine; Visit Provider Internal Medicine Infectious Disease
DX: N15.1 Renal and perinephric abscess (principal)
CPT/HCPCS: 96365; 36592; 80076; 82565; 85025; J7050; A4216; J0696

== ENCOUNTER → 2018-06-26 10:22 | Outpatient (CLI) | payer MEDICARE, SELFPAY ==
[2018-06-26 10:35] VITALS: BP 159/85; PULSE 87; RESP 18; TEMP 36.6; O2SAT 98
== END ==
PROVIDERS: Family Provider Internal Medicine; PCP Internal Medicine; Visit Provider Internal Medicine Infectious Disease
DX: N15.1 Renal and perinephric abscess (principal)
CPT/HCPCS: 96365; J7050; A4216; J0696

== ENCOUNTER → 2018-06-27 10:20 | Outpatient (CLI) | payer MEDICARE, SELFPAY ==
[2018-06-27 10:46] VITALS: BP 134/89; PULSE 91; RESP 16; TEMP 37.1; O2SAT 97
== END ==
PROVIDERS: Family Provider Internal Medicine; PCP Internal Medicine; Visit Provider Internal Medicine Infectious Disease
DX: N15.1 Renal and perinephric abscess (principal)
CPT/HCPCS: 96365; J7050; A4216; J0696

== ENCOUNTER → 2018-06-28 10:18 | Outpatient (CLI) | payer MEDICARE, SELFPAY ==
[2018-06-28 10:31] VITALS: BP 165/86; PULSE 83; RESP 16; TEMP 37.4; O2SAT 100; BMI 20.2
== END ==
PROVIDERS: Family Provider Internal Medicine; PCP Internal Medicine; Visit Provider Internal Medicine Infectious Disease
DX: N15.1 Renal and perinephric abscess (principal)
CPT/HCPCS: 96365; J7050; A4216; J0696

== ENCOUNTER → 2018-06-29 10:21 | Outpatient (CLI) | payer MEDICARE, SELFPAY ==
[2018-06-29 10:43] VITALS: BP 146/88; PULSE 86; RESP 18; TEMP 36.8; O2SAT 96
== END ==
PROVIDERS: Family Provider Internal Medicine; PCP Internal Medicine; Visit Provider Internal Medicine Infectious Disease
DX: N15.1 Renal and perinephric abscess (principal)
CPT/HCPCS: 96365; J7050; A4216; J0696

== ENCOUNTER 2018-06-30 10:34 | Outpatient (CLI) | payer MEDICARE, SELFPAY ==
[2018-06-30 10:50] VITALS: BP 172/89; PULSE 91; RESP 18; TEMP 36.6; O2SAT 99; BMI 20.2
[2018-06-30] MEDS: 0.9% NaCl PICC Flush IV ×2 (11:18→11:56)
[2018-06-30 11:24] VITALS: BP 159/84; PULSE 84; RESP 18; O2SAT 99; BMI 20.2
[2018-06-30 12:00] VITALS: BP 156/97; PULSE 90; RESP 18; TEMP 36.9; O2SAT 98; BMI 20.2
== END 2018-06-30 12:08 | disposition home or self-care (01) ==
LOC: MEDOUTP 10:35 → ICU 10:36
PROVIDERS: Family Provider Internal Medicine; PCP Internal Medicine; Visit Provider Internal Medicine Infectious Disease
DX: N15.1 Renal and perinephric abscess (principal)
CPT/HCPCS: 96365; 96523; A4216; J0696

== ENCOUNTER 2018-07-01 10:43 | Outpatient (CLI) | payer MEDICARE, SELFPAY ==
[2018-07-01] MEDS: 0.9% NaCl VAD Flush 10 ML IV ×2 (11:01→11:49)
[2018-07-01 11:04] VITALS: BP 130/74; PULSE 95; RESP 18; TEMP 36.7; O2SAT 97
== END 2018-07-01 11:53 | disposition home or self-care (01) ==
LOC: MEDOUTP 10:43 → MS3 10:44
PROVIDERS: Family Provider Internal Medicine; PCP Internal Medicine; Visit Provider Internal Medicine Infectious Disease
DX: N15.1 Renal and perinephric abscess (principal)
CPT/HCPCS: 96365; A4216; J0696

== ENCOUNTER → 2018-07-02 10:17 | Outpatient (CLI) | payer MEDICARE, SELFPAY ==
[2018-07-02 10:50] VITALS: BP 130/75; PULSE 85; RESP 18; TEMP 37.1; O2SAT 98
[2018-07-02 11:08] LABS: Absolute Lymphocyte Count 0.96 X10^3/ul (0.83-4.51); Basophil# 0.02 X10^3/uL; Basophil% 0.5 % (0-1); Eosinophils% 5.5 % (0-5); Hematocrit 30.2 % (37-47); Hemoglobin 9.3 g/dl (12.0-15.0); Lymphocyte # 0.96 X10^3/ul (4.0); Lymphocyte % 26.2 % (19-41); Mean Corp Hgb Conc 30.8 g/gl (32-36); Mean Corpuscular Hgb 27.8 pg (27.0-32.0); Mean Corpuscular Volume 90.4 fL (81-99); Monocyte# 0.46 X10^3/uL; Monocyte% 12.6 % (0-10); Neutrophil # 2.02 X10^3/uL (2.7-7.7); Neutrophil % 55.2 % (47-70); Platelet Count 149 K/mm3 (150-450); RBC Distribution Width CV 15.5 % (11.6-14.6); RBC Distribution Width SD 51.5 fl (35.1-43.9); Red Blood Count 3.34 M/mm3 (4.2-5.4); White Blood Count 3.7 K/mm3 (4.4-11.0)
[2018-07-02 11:14] LABS: POSITIVE COUNT NO; POSITIVE DIFFERENTIAL NO; POSITIVE MORPHOLOGY NO
[2018-07-02 12:02] LABS: AST(SGOT) 10 U/L (15-37); Alanine Aminotransfer ALT/SGPT 18 U/L (13-56); Albumin, Serum 2.8 g/dL (3.2-5.0); Alkaline Phosphatase 81 U/L (45-117); Bilirubin, Direct 0.06 mg/dL (0.00-0.30); Creatinine, Serum 3.43 mg/dL (0.55-1.02); EST Glomerular Filtration Rate 14 mL/min (>60); Est Glom Filt Rate - Afr Amer 17 mL/min (>60); Globulin 5.1 g/dL (2.2-4.2); Protein, Total 7.9 g/dL (6.4-8.2)
== END ==
PROVIDERS: Family Provider Internal Medicine; PCP Internal Medicine; Visit Provider Internal Medicine Infectious Disease
DX: N15.1 Renal and perinephric abscess (principal)
CPT/HCPCS: 96365; 36592; 80076; 82565; 85025; J7050; A4216; J0696

== ENCOUNTER → 2018-07-03 10:17 | Outpatient (CLI) | payer MEDICARE, SELFPAY ==
[2018-07-03 10:33] VITALS: BP 191/77; PULSE 96; RESP 16; TEMP 37.2
== END ==
PROVIDERS: Family Provider Internal Medicine; PCP Internal Medicine; Visit Provider Internal Medicine Infectious Disease
DX: N15.1 Renal and perinephric abscess (principal)
CPT/HCPCS: 96365; J7050; A4216; J0696

== ENCOUNTER → 2018-07-04 10:19 | Outpatient (CLI) | payer MEDICARE, SELFPAY ==
[2018-07-04 10:58] VITALS: BP 143/82; PULSE 83; RESP 18; TEMP 37.2; O2SAT 100
== END ==
PROVIDERS: Family Provider Internal Medicine; PCP Internal Medicine; Visit Provider Internal Medicine Infectious Disease
DX: N15.1 Renal and perinephric abscess (principal)
CPT/HCPCS: 96365; J7050; A4216; J0696

== ENCOUNTER → 2018-07-05 10:18 | Outpatient (CLI) | payer MEDICARE, SELFPAY ==
[2018-07-05 10:33] VITALS: BP 162/83; PULSE 81; RESP 16; TEMP 36.4; O2SAT 100
== END ==
PROVIDERS: Family Provider Internal Medicine; PCP Internal Medicine; Visit Provider Internal Medicine Infectious Disease
DX: N15.1 Renal and perinephric abscess (principal)
CPT/HCPCS: 96365; J7050; A4216; J0696

== ENCOUNTER → 2018-07-06 10:17 | Outpatient (CLI) | payer MEDICARE, SELFPAY ==
[2018-07-06 10:29] VITALS: BP 157/83; PULSE 89; RESP 16; TEMP 36.6; O2SAT 98; BMI 20.2
== END ==
PROVIDERS: Family Provider Internal Medicine; PCP Internal Medicine; Visit Provider Internal Medicine Infectious Disease
DX: N15.1 Renal and perinephric abscess (principal)
CPT/HCPCS: 96365; J7050; A4216; J0696

== ENCOUNTER 2018-07-07 10:42 | Outpatient (CLI) | payer MEDICARE, SELFPAY ==
[2018-07-07 10:52] VITALS: BP 157/88; PULSE 68; RESP 14
[2018-07-07 11:33] VITALS: BP 153/91; PULSE 69; RESP 14
== END 2018-07-07 11:37 | disposition home or self-care (01) ==
LOC: MEDOUTP 10:44 → ICU 10:47
PROVIDERS: Family Provider Internal Medicine; PCP Internal Medicine; Visit Provider Internal Medicine Infectious Disease
DX: N15.1 Renal and perinephric abscess (principal)
CPT/HCPCS: 96365; J0696

== ENCOUNTER 2018-07-08 10:29 | Outpatient (CLI) | payer MEDICARE, SELFPAY ==
[2018-07-08 10:40] VITALS: BP 153/76; PULSE 84; RESP 16; TEMP 37.2; O2SAT 100
[2018-07-08] MEDS: 0.9% NaCl PICC Flush IV ×2 (10:50→11:18)
[2018-07-08] MEDS: 0.9% NaCl IVPB Med Flush (250 mL) 15 ML IV (10:51)
== END 2018-07-08 11:19 | disposition home or self-care (01) ==
LOC: MEDOUTP 10:30 → MS3 10:31
PROVIDERS: Family Provider Internal Medicine; PCP Internal Medicine; Visit Provider Internal Medicine Infectious Disease
DX: N15.1 Renal and perinephric abscess (principal)
CPT/HCPCS: 96365; J7050; A4216; J0696

== ENCOUNTER → 2018-07-09 10:21 | Outpatient (CLI) | payer MEDICARE, SELFPAY ==
[2018-07-09 10:41] VITALS: BP 156/91; PULSE 98; RESP 16; TEMP 36.9; O2SAT 99
[2018-07-09 11:13] LABS: Absolute Lymphocyte Count 1.16 X10^3/ul (0.83-4.51); Absolute Neutrophil Count 2.9 X10^3/uL (2.0-7.7); Basophil# 0.02 X10^3/uL; Basophil% 0.4 % (0-1); Eosinophil# 0.22 X10^3/uL; Eosinophils% 4.6 % (0-5); Hemoglobin 9.3 g/dl (12.0-15.0); Lymphocyte # 1.16 X10^3/ul (4.0); Lymphocyte % 24.2 % (19-41); Mean Corp Hgb Conc 32.1 g/gl (32-36); Mean Corpuscular Hgb 29.1 pg (27.0-32.0); Mean Corpuscular Volume 90.6 fL (81-99); Mean Platelet Vol. 8.9 fl (6.2-12.0); Monocyte# 0.46 X10^3/uL; Monocyte% 9.6 % (0-10); Neutrophil # 2.93 X10^3/uL (2.7-7.7); Platelet Count 169 K/mm3 (150-450); RBC Distribution Width CV 15.1 % (11.6-14.6); RBC Distribution Width SD 48.8 fl (35.1-43.9); White Blood Count 4.8 K/mm3 (4.4-11.0)
[2018-07-09 11:14] LABS: POSITIVE COUNT NO; POSITIVE DIFFERENTIAL NO; POSITIVE MORPHOLOGY NO
[2018-07-09 11:24] LABS: AST(SGOT) 13 U/L (15-37); Alanine Aminotransfer ALT/SGPT 13 U/L (13-56); Alkaline Phosphatase 77 U/L (45-117); Bilirubin, Direct 0.06 mg/dL (0.00-0.30); Creatinine, Serum 3.39 mg/dL (0.55-1.02); EST Glomerular Filtration Rate 14 mL/min (>60); Est Glom Filt Rate - Afr Amer 17 mL/min (>60); Globulin 5.1 g/dL (2.2-4.2); Protein, Total 8.1 g/dL (6.4-8.2)
== END ==
PROVIDERS: Family Provider Internal Medicine; PCP Internal Medicine; Visit Provider Internal Medicine Infectious Disease
DX: N15.1 Renal and perinephric abscess (principal)
CPT/HCPCS: 96365; 36592; 80076; 82565; 85025; J7050; A4216; J0696

== ENCOUNTER → 2018-07-10 10:24 | Outpatient (CLI) | payer MEDICARE, SELFPAY ==
[2018-07-10 10:45] VITALS: BP 148/88; PULSE 88; RESP 16; TEMP 37.1; O2SAT 98
== END ==
PROVIDERS: Family Provider Internal Medicine; PCP Internal Medicine; Visit Provider Internal Medicine Infectious Disease
DX: N15.1 Renal and perinephric abscess (principal)
CPT/HCPCS: 96365; J7050; A4216; J0696

== ENCOUNTER → 2018-07-11 07:48 | Outpatient (CLI) | payer MEDICARE, SELFPAY ==
[2018-07-11 08:22] VITALS: BP 150/90; PULSE 91; RESP 16; TEMP 36.9; O2SAT 97; BMI 20.2
== END ==
PROVIDERS: Family Provider Internal Medicine; PCP Internal Medicine; Visit Provider Internal Medicine Infectious Disease
DX: N15.1 Renal and perinephric abscess (principal)
CPT/HCPCS: 96365; A4216; J0696

== ENCOUNTER → 2018-07-12 10:18 | Outpatient (CLI) | payer MEDICARE, SELFPAY ==
[2018-07-12 11:07] VITALS: BP 151/86; PULSE 83; RESP 16; TEMP 37.2; BMI 20.2
== END ==
PROVIDERS: Family Provider Internal Medicine; PCP Internal Medicine; Visit Provider Internal Medicine Infectious Disease
DX: N15.1 Renal and perinephric abscess (principal)
CPT/HCPCS: 96365; J7050; A4216; J0696

== ENCOUNTER → 2018-07-13 10:32 | Outpatient (CLI) | payer MEDICARE, SELFPAY ==
[2018-07-13 11:24] VITALS: BP 142/85; PULSE 88; RESP 16; TEMP 37.1; O2SAT 100; BMI 20.2
== END ==
PROVIDERS: Family Provider Internal Medicine; PCP Internal Medicine; Visit Provider Internal Medicine Infectious Disease
DX: N15.1 Renal and perinephric abscess (principal)
CPT/HCPCS: 96365; J7050; A4216; J0696

== ENCOUNTER 2018-07-14 10:20 | Outpatient (CLI) | payer MEDICARE, SELFPAY ==
[2018-07-14 10:53] VITALS: BP 141/91; PULSE 86; RESP 18; TEMP 36.5; O2SAT 100
[2018-07-14] MEDS: 0.9% NaCl PICC Flush IV (11:32)
== END 2018-07-14 11:34 | disposition home or self-care (01) ==
LOC: MEDOUTP 10:21 → MS3 10:22 → PCU 10:35
PROVIDERS: Family Provider Internal Medicine; PCP Internal Medicine; Visit Provider Internal Medicine Infectious Disease
DX: N15.1 Renal and perinephric abscess (principal)
CPT/HCPCS: 96365; A4216; J0696

== ENCOUNTER 2018-07-15 10:21 | Outpatient (CLI) | payer MEDICARE, SELFPAY ==
[2018-07-15 10:35] VITALS: BP 168/101; PULSE 86; RESP 18; O2SAT 97; BMI 20.2
== END 2018-07-15 11:23 | disposition home or self-care (01) ==
LOC: MEDOUTP 10:51 → MS3 10:51
PROVIDERS: Family Provider Internal Medicine; PCP Internal Medicine; Visit Provider Internal Medicine Infectious Disease
DX: N15.1 Renal and perinephric abscess (principal)
CPT/HCPCS: 96365; J7050; J0696

== ENCOUNTER 2018-07-16 10:30 | Outpatient (CLI) | payer MEDICARE, SELFPAY ==
[2018-07-16 11:01] VITALS: BP 172/98; PULSE 87; RESP 18; TEMP 37; O2SAT 100
[2018-07-16] MEDS: 0.9% NaCl Peripheral Flush Adult/Peds IV (11:37)
== END 2018-07-16 11:40 | disposition home or self-care (01) ==
LOC: MEDOUTP 10:31 → PCU 10:31
PROVIDERS: Family Provider Internal Medicine; PCP Internal Medicine; Visit Provider Internal Medicine Infectious Disease
DX: N15.1 Renal and perinephric abscess (principal)
CPT/HCPCS: 96365; A4216; J0696

== ENCOUNTER → 2018-07-17 10:16 | Outpatient (CLI) | payer MEDICARE, SELFPAY ==
[2018-07-17] MEDS: Ceftriaxone 2 GM in 0.9% NS 50 ML Minibag x1 IV (10:44)
[2018-07-17 10:45] VITALS: BP 173/89; PULSE 78; RESP 16; TEMP 36.5; O2SAT 100; BMI 20.2
[2018-07-17 11:10] LABS: Absolute Neutrophil Count 2.7 X10^3/uL (2.0-7.7); Basophil# 0.04 X10^3/uL; Basophil% 0.9 % (0-1); Eosinophil# 0.28 X10^3/uL; Eosinophils% 6.1 % (0-5); Hematocrit 29.8 % (37-47); Hemoglobin 9.5 g/dl (12.0-15.0); Lymphocyte % 26.1 % (19-41); Mean Corp Hgb Conc 31.9 g/gl (32-36); Mean Corpuscular Volume 90.9 fL (81-99); Mean Platelet Vol. 8.9 fl (6.2-12.0); Monocyte# 0.39 X10^3/uL; Monocyte% 8.5 % (0-10); Neutrophil # 2.67 X10^3/uL (2.7-7.7); Neutrophil % 58.2 % (47-70); Platelet Count 168 K/mm3 (150-450); RBC Distribution Width SD 48.8 fl (35.1-43.9); Red Blood Count 3.28 M/mm3 (4.2-5.4); White Blood Count 4.6 K/mm3 (4.4-11.0)
[2018-07-17 11:21] LABS: POSITIVE COUNT NO; POSITIVE DIFFERENTIAL NO; POSITIVE MORPHOLOGY NO
[2018-07-17 11:39] LABS: AST(SGOT) 13 U/L (15-37); Alanine Aminotransfer ALT/SGPT 13 U/L (13-56); Albumin, Serum 3.3 g/dL (3.2-5.0); Alkaline Phosphatase 71 U/L (45-117); Bilirubin, Direct 0.09 mg/dL (0.00-0.30); Creatinine, Serum 3.38 mg/dL (0.55-1.02); EST Glomerular Filtration Rate 14 mL/min (>60); Est Glom Filt Rate - Afr Amer 18 mL/min (>60); Estimated Creatinine Clearance 12.95 ml/min; Globulin 4.9 g/dL (2.2-4.2); Protein, Total 8.2 g/dL (6.4-8.2)
== END ==
PROVIDERS: Family Provider Internal Medicine; PCP Internal Medicine; Visit Provider Internal Medicine Infectious Disease
DX: N15.1 Renal and perinephric abscess (principal)
CPT/HCPCS: 96365; 36592; 80076; 82565; 85025; J7050; A4216; J0696

== ENCOUNTER → 2018-07-18 10:20 | Outpatient (CLI) | payer MEDICARE, SELFPAY ==
[2018-07-18] MEDS: Ceftriaxone 2 GM in 0.9% NS 50 ML Minibag x1 IV (10:51)
[2018-07-18 10:54] VITALS: BP 150/90; PULSE 76; RESP 16; TEMP 36.5; O2SAT 98; BMI 20.2
== END ==
PROVIDERS: Family Provider Internal Medicine; PCP Internal Medicine; Visit Provider Internal Medicine Infectious Disease
DX: N15.1 Renal and perinephric abscess (principal)
CPT/HCPCS: 96365; J7050; J0696

== ENCOUNTER → 2018-07-20 10:18 | Outpatient (CLI) | payer MEDICARE, SELFPAY ==
[2018-07-20] MEDS: Ceftriaxone 2 GM in 0.9% NS 50 ML Minibag x1 IV (10:41)
[2018-07-20 10:42] VITALS: BP 180/99; PULSE 80; RESP 16; TEMP 36.8; BMI 20.8
== END ==
PROVIDERS: Family Provider Internal Medicine; PCP Internal Medicine; Visit Provider Internal Medicine Infectious Disease
DX: N15.1 Renal and perinephric abscess (principal)
CPT/HCPCS: 96365; J7050; A4216; J0696

== ENCOUNTER 2018-07-21 10:34 | Outpatient (CLI) | payer MEDICARE, SELFPAY ==
[2018-07-21 11:07] VITALS: BP 150/76; PULSE 86; RESP 14; TEMP 36.7; O2SAT 99; BMI 19.5
== END 2018-07-21 11:55 | disposition home or self-care (01) ==
LOC: MEDOUTP 10:37 → MS2 10:38
PROVIDERS: Family Provider Internal Medicine; PCP Internal Medicine; Visit Provider Internal Medicine Infectious Disease
DX: N15.1 Renal and perinephric abscess (principal)
CPT/HCPCS: 96365; J0696

== ENCOUNTER 2018-07-22 10:29 | Outpatient (CLI) | payer MEDICARE, SELFPAY ==
[2018-07-22 10:52] VITALS: BP 162/81; PULSE 81; RESP 18; TEMP 36.8; O2SAT 97
== END 2018-07-22 11:33 | disposition home or self-care (01) ==
LOC: MEDOUTP 10:30 → MS2 10:31
PROVIDERS: Family Provider Internal Medicine; PCP Internal Medicine; Visit Provider Internal Medicine Infectious Disease
DX: N15.1 Renal and perinephric abscess (principal)
CPT/HCPCS: 96365; J7040; J0696

== ENCOUNTER → 2018-07-23 10:18 | Outpatient (CLI) | payer MEDICARE, SELFPAY ==
[2018-07-23 10:36] VITALS: BP 155/82; PULSE 81; RESP 16; TEMP 36.5; O2SAT 100; BMI 20.8
[2018-07-23 10:55] LABS: Absolute Neutrophil Count 2.6 X10^3/uL (2.0-7.7); Basophil# 0.02 X10^3/uL; Basophil% 0.4 % (0-1); Eosinophil# 0.31 X10^3/uL; Eosinophils% 6.9 % (0-5); Hematocrit 31.4 % (37-47); Lymphocyte % 22.2 % (19-41); Mean Corp Hgb Conc 31.8 g/gl (32-36); Mean Corpuscular Hgb 28.5 pg (27.0-32.0); Mean Corpuscular Volume 89.5 fL (81-99); Mean Platelet Vol. 8.9 fl (6.2-12.0); Monocyte# 0.53 X10^3/uL; Monocyte% 11.8 % (0-10); Neutrophil # 2.64 X10^3/uL (2.7-7.7); Neutrophil % 58.7 % (47-70); Platelet Count 161 K/mm3 (150-450); RBC Distribution Width CV 15.4 % (11.6-14.6); RBC Distribution Width SD 50.2 fl (35.1-43.9); Red Blood Count 3.51 M/mm3 (4.2-5.4); White Blood Count 4.5 K/mm3 (4.4-11.0)
[2018-07-23 11:02] LABS: POSITIVE COUNT NO; POSITIVE DIFFERENTIAL NO; POSITIVE MORPHOLOGY NO
[2018-07-23 11:11] LABS: AST(SGOT) 12 U/L (15-37); Alanine Aminotransfer ALT/SGPT 14 U/L (13-56); Albumin, Serum 3.5 g/dL (3.2-5.0); Alkaline Phosphatase 70 U/L (45-117); Creatinine, Serum 3.27 mg/dL (0.55-1.02); EST Glomerular Filtration Rate 15 mL/min (>60); Est Glom Filt Rate - Afr Amer 18 mL/min (>60); Estimated Creatinine Clearance 13.38 ml/min; Globulin 4.8 g/dL (2.2-4.2); Protein, Total 8.3 g/dL (6.4-8.2)
== END ==
PROVIDERS: Family Provider Internal Medicine; PCP Internal Medicine; Visit Provider Internal Medicine Infectious Disease
DX: N15.1 Renal and perinephric abscess (principal)
CPT/HCPCS: 96365; 36592; 80076; 82565; 85025; J7050; A4216; J0696

== ENCOUNTER → 2018-07-24 10:22 | Outpatient (CLI) | payer MEDICARE, SELFPAY ==
[2018-07-24] MEDS: Ceftriaxone 2 GM in 0.9% NS 50 ML Minibag x1 IV (10:47)
[2018-07-24 10:48] VITALS: BP 157/79; PULSE 87; RESP 16; TEMP 36.4; BMI 20.8
== END ==
PROVIDERS: Family Provider Internal Medicine; PCP Internal Medicine; Visit Provider Internal Medicine Infectious Disease
DX: N15.1 Renal and perinephric abscess (principal)
CPT/HCPCS: 96365; J7050; A4216; J0696

== ENCOUNTER → 2018-07-25 10:18 | Outpatient (CLI) | payer MEDICARE, SELFPAY ==
[2018-07-25 10:32] VITALS: BP 155/85; PULSE 80; RESP 16; TEMP 36.6; O2SAT 100; BMI 20.8
[2018-07-25] MEDS: Ceftriaxone 2 GM in 0.9% NS 50 ML Minibag x1 IV (10:36)
== END ==
PROVIDERS: Family Provider Internal Medicine; PCP Internal Medicine; Visit Provider Internal Medicine Infectious Disease
DX: N15.1 Renal and perinephric abscess (principal)
CPT/HCPCS: 96365; J7050; A4216; J0696

== ENCOUNTER → 2018-07-26 10:18 | Outpatient (CLI) | payer MEDICARE, SELFPAY ==
[2018-07-26 10:37] VITALS: BP 170/85; PULSE 85; RESP 16; TEMP 36.6; O2SAT 100; BMI 20.8
[2018-07-26 10:40] LABS: Bacteria 0 SEEN /hpf (None Seen); Mucous, Urine 0 SEEN /hpf (<or=2+); Red Blood Cells-Urine 0 SEEN /hpf (0-5)
[2018-07-26] MEDS: Ceftriaxone 2 GM in 0.9% NS 50 ML Minibag x1 IV (10:59)
[2018-07-26 11:18] LABS: Color, Urine Yellow (Yellow); Glucose, Dipstick Normal (Normal); Ketone-Dipstick Negative (Negative); Leukocyte Esterase-Dipstick 500 /ul (Negative); Nitrite-Dipstick Negative (Negative); Occult Blood-Urine 50 /ul (Negative); Protein-Dipstick 100 mg/dl (Negative); Urine Bilirubin Dipstick Negative (Negative); Urine Clarity Sl. Cloudy (Clear); Urine Urobilinogen Normal (Normal)
[2018-07-26 11:32] LABS: Albumin, Serum 3.5 g/dL (3.2-5.0); BUN 43 mg/dL (7-18); BUN/Creat Ratio 13.7 RATIO (10-20); Calcium,Total 8.9 mg/dL (8.5-10.1); Chloride 108 mmol/L (98-107); Creatinine, Serum 3.13 mg/dL (0.55-1.02); EST Glomerular Filtration Rate 16 mL/min (>60); Est Glom Filt Rate - Afr Amer 19 mL/min (>60); Estimated Creatinine Clearance 13.98 ml/min; Glucose 86 mg/dL (74-106); Phosphorus 4.4 mg/dL (2.5-4.9); Sodium Level 140 mmol/L (136-145)
[2018-07-26 11:35] LABS: White Blood Cells >100 SEEN /hpf (0-5)
[2018-07-26 11:39] LABS: Squamous Epithelial Cells - UA 0-5 SEEN /hpf (5-10)
[2018-07-26 11:43] LABS: PTHIN 1050.1 pg/mL (18.4-80.1)
[2018-07-27 08:27] LABS: Vitamin D,25 Hydroxy 16.8 ng/mL (29.95-100.01)
== END ==
PROVIDERS: Family Provider Internal Medicine; PCP Internal Medicine; Visit Provider Internal Medicine Infectious Disease
DX: N15.1 Renal and perinephric abscess (principal); N17.9 Acute kidney failure, unspecified; E55.9 Vitamin D deficiency, unspecified
CPT/HCPCS: 96365; 36592; 80069; 81001; 82306; 83970; J7050; A4216; J0696

== ENCOUNTER → 2018-07-27 10:20 | Outpatient (CLI) | payer MEDICARE, SELFPAY ==
[2018-07-27 10:24] VITALS: BP 159/79; PULSE 83; RESP 16; TEMP 37; O2SAT 99; BMI 20.8
[2018-07-27] MEDS: Ceftriaxone 2 GM in 0.9% NS 50 ML Minibag x1 IV (10:32)
== END ==
PROVIDERS: Family Provider Internal Medicine; PCP Internal Medicine; Visit Provider Internal Medicine Infectious Disease
DX: N15.1 Renal and perinephric abscess (principal)
CPT/HCPCS: 96365; J7050; A4216; J0696

== ENCOUNTER 2018-07-28 10:29 | Outpatient (CLI) | payer MEDICARE, SELFPAY ==
[2018-07-28 10:47] VITALS: BP 164/78; PULSE 85; RESP 18; TEMP 36.7; O2SAT 100
== END 2018-07-28 11:25 | disposition home or self-care (01) ==
LOC: MEDOUTP 10:31 → MS2 10:32
PROVIDERS: Family Provider Internal Medicine; PCP Internal Medicine; Visit Provider Internal Medicine Infectious Disease
DX: N15.1 Renal and perinephric abscess (principal)
CPT/HCPCS: 96365; A4216; J0696

== ENCOUNTER 2018-07-29 11:07 | Outpatient (CLI) | payer MEDICARE, SELFPAY ==
[2018-07-29 11:19] VITALS: BP 157/79; PULSE 83; RESP 18; TEMP 36.7; O2SAT 99; BMI 20.8
== END 2018-07-29 11:40 | disposition home or self-care (01) ==
LOC: MEDOUTP 11:07 → MS3 11:08
PROVIDERS: Family Provider Internal Medicine; PCP Internal Medicine; Visit Provider Internal Medicine Infectious Disease
DX: N15.1 Renal and perinephric abscess (principal)
CPT/HCPCS: 96365; J7050; A4216; J0696

== ENCOUNTER → 2018-07-30 10:21 | Outpatient (CLI) | payer MEDICARE, SELFPAY ==
[2018-07-30 10:35] VITALS: BP 159/83; PULSE 80; RESP 16; TEMP 36.6; O2SAT 100; BMI 20.8
[2018-07-30] MEDS: Ceftriaxone 2 GM in 0.9% NS 50 ML Minibag x1 IV (10:46)
[2018-07-30 11:04] LABS: Absolute Lymphocyte Count 1.02 X10^3/ul (0.83-4.51); Absolute Neutrophil Count 2.2 X10^3/uL (2.0-7.7); Basophil# 0.03 X10^3/uL; Basophil% 0.8 % (0-1); Eosinophil# 0.25 X10^3/uL; Eosinophils% 6.4 % (0-5); Hemoglobin 9.3 g/dl (12.0-15.0); Lymphocyte # 1.02 X10^3/ul (4.0); Mean Corp Hgb Conc 32.1 g/gl (32-36); Mean Corpuscular Hgb 28.3 pg (27.0-32.0); Mean Corpuscular Volume 88.1 fL (81-99); Mean Platelet Vol. 8.6 fl (6.2-12.0); Monocyte# 0.41 X10^3/uL; Monocyte% 10.5 % (0-10); Neutrophil # 2.21 X10^3/uL (2.7-7.7); Neutrophil % 56.3 % (47-70); POSITIVE COUNT NO; POSITIVE DIFFERENTIAL NO; POSITIVE MORPHOLOGY NO; Platelet Count 130 K/mm3 (150-450); RBC Distribution Width CV 15.3 % (11.6-14.6); RBC Distribution Width SD 49.7 fl (35.1-43.9); Red Blood Count 3.29 M/mm3 (4.2-5.4); White Blood Count 3.9 K/mm3 (4.4-11.0)
[2018-07-30 11:26] LABS: AST(SGOT) 15 U/L (15-37); Alanine Aminotransfer ALT/SGPT 17 U/L (13-56); Albumin, Serum 3.6 g/dL (3.2-5.0); Alkaline Phosphatase 78 U/L (45-117); Creatinine, Serum 3.46 mg/dL (0.55-1.02); EST Glomerular Filtration Rate 14 mL/min (>60); Est Glom Filt Rate - Afr Amer 17 mL/min (>60); Estimated Creatinine Clearance 12.65 ml/min; Globulin 4.6 g/dL (2.2-4.2); Protein, Total 8.2 g/dL (6.4-8.2)
== END ==
PROVIDERS: Family Provider Internal Medicine; PCP Internal Medicine; Visit Provider Internal Medicine Infectious Disease
DX: N15.1 Renal and perinephric abscess (principal)
CPT/HCPCS: 96365; 36592; 80076; 82565; 85025; J7050; A4216; J0696

== ENCOUNTER → 2018-07-31 10:15 | Outpatient (CLI) | payer MEDICARE, SELFPAY ==
[2018-07-31 10:27] VITALS: BP 155/75; PULSE 82; RESP 16; TEMP 36.2; O2SAT 100; BMI 20.8
[2018-07-31] MEDS: Ceftriaxone 2 GM in 0.9% NS 50 ML Minibag x1 IV (10:31)
== END ==
PROVIDERS: Family Provider Internal Medicine; PCP Internal Medicine; Visit Provider Internal Medicine Infectious Disease
DX: N15.1 Renal and perinephric abscess (principal)
CPT/HCPCS: 96365; J7050; A4216; J0696

== ENCOUNTER → 2018-08-01 10:18 | Outpatient (CLI) | payer MEDICARE, SELFPAY ==
[2018-08-01 10:42] VITALS: BP 161/91; PULSE 88; RESP 16; TEMP 36.8; O2SAT 98; BMI 20.8
[2018-08-01] MEDS: Ceftriaxone 2 GM in 0.9% NS 50 ML Minibag x1 IV (10:49)
== END ==
PROVIDERS: Family Provider Internal Medicine; PCP Internal Medicine; Visit Provider Internal Medicine Infectious Disease
DX: N15.1 Renal and perinephric abscess (principal)
CPT/HCPCS: 96365; J7050; A4216; J0696

== ENCOUNTER → 2018-08-02 10:17 | Outpatient (CLI) | payer MEDICARE, SELFPAY ==
[2018-08-02] MEDS: Ceftriaxone 2 GM in 0.9% NS 50 ML Minibag x1 IV (10:28)
[2018-08-02 10:29] VITALS: BP 164/91; PULSE 86; RESP 16; TEMP 36.4; O2SAT 98; BMI 20.8
== END ==
PROVIDERS: Family Provider Internal Medicine; PCP Internal Medicine; Visit Provider Internal Medicine Infectious Disease
DX: N15.1 Renal and perinephric abscess (principal)
CPT/HCPCS: 96365; J7040; A4216; J0696

== ENCOUNTER → 2018-11-23 09:58 | Outpatient (CLI) | payer MEDICARE, SELFPAY ==
--- NOTE | 2018-11-23 10:05 | US_ITS ---
STUDY: RENAL ULTRASOUND - COMPLETE REASON FOR EXAM: Female, 68 years old. Acute kidney injury. History of right renal abscess May 2018 and indwelling right nephrostomy tube. TECHNIQUE: Ultrasound evaluation of the kidneys was performed with real-time and static martins-scale imaging. COMPARISON: CT abdomen pelvis June 08, 2018. FINDINGS: RIGHT KIDNEY: Normal location of the right kidney, which is normal in size. The right kidney measures 11.9 x 4.4 x 5.0 cm. There is a normal cortex of the right kidney. The renal cortex measures 1.5 cm. Incompletely defined 5.5 x 3.6 x 3.3 cm area of heterogeneity at the lower pole of the right kidney consistent with a remnant of the abscess noted on the earlier CT. There are no right renal calculi. The right nephrostomy tube is identified. There is no right hydronephrosis. DISTAL RIGHT URETER: There is non-visualization of the distal right ureter. There is no demonstrated right ureterovesical junction calculus. There is a visualized right ureteral jet. LEFT KIDNEY: Normal location of the left kidney, which is normal in size. The left kidney measures 11.1 x 4.4 x 3.6 cm. There is increased cortical echogenicity of the left kidney, consistent with long-standing medical renal disease. The renal cortex measures 0.8 cm. 1.3 x 1.4 x 0.8 cm cortical cyst is suggested in the mid to lower pole. There are no left renal calculi. There is no left hydronephrosis. DISTAL LEFT URETER: There is non-visualization of the distal left ureter. There is no demonstrated left ureterovesical junction calculus. There is a visualized left ureteral jet. BLADDER: The distended urinary bladder has a volume of 127.5 ml. The empty urinary bladder has a volume of 9.3 ml. There is a normal 2 mm wall thickness of the distended urinary bladder. The distal ends of bilateral ureteral stents are noted within the bladder lumen. There is no demonstrated mass within the urinary bladder. There are no demonstrated bladder calculi. US/Kidney and Bladder IMPRESSION: 1. 5.5 cm region of heterogeneity at the lower pole the right kidney suggests a remnant of the previously identified abscess. Active infection cannot be confirmed or excluded by this exam alone. 2. Chronic left cortical atrophy again noted. 1.4; cortical cysts suggested in the mid to lower pole. 3. Bilateral double-J ureteral stents in place and right nephrostomy tube identified. No hydronephrosis. Electronically Signed: Isiah Jordan MD at 16:09 EST , Service support ,
== END ==
PROVIDERS: Family Provider Internal Medicine; PCP Internal Medicine
DX: N17.9 Acute kidney failure, unspecified (principal)
CPT/HCPCS: 76770

== ENCOUNTER 2020-08-14 20:09 | Emergency (ER) | payer MEDICARE, SELFPAY ==
[2020-08-14] VITALS (8 sets, daily range): BP systolic 148–212; BP diastolic 75–116; PULSE 80–92; RESP 14–21; TEMP 35.7–36.4; O2SAT 95–100; BMI 19.5
--- NOTE | 2020-08-14 20:13 | CT_ITS ---
STUDY: CT BRAIN WITHOUT CONTRAST REASON FOR EXAM: Female, 70 years old. Unresponsive RADIATION DOSAGE (If Supplied By Facility): CTDIvol = ( 44.99 ) mGy, DLP = ( 796.11 ) mGycm TECHNIQUE: Transaxial CT imaging of the brain was performed without administration of intravenous contrast material. Individualized dose optimization techniques were used for this CT. COMPARISON: None. FINDINGS: There is a left temporal lobe hemorrhage which measures 7.2 x 5.9 x 2.6 cm in maximal dimensions. There is effacement of the left lateral ventricle with a small amount of intraventricular blood noted. There is no hydrocephalus. There is approximately 3 mm of [id number] midline shift. There are no additional areas of hemorrhage. There is no acute infarct. The visualized paranasal sinuses are clear. The mastoid air cells are well aerated. There is no skull fracture. CT/Brain/Head without Contrast IMPRESSION: 7.2 x 5.9 x 2.6 cm left temporal hemorrhage. Effacement of the left lateral ventricle with a small amount of intraventricular blood noted. Approximately 3 mm of [id number] midline shift. No hydrocephalus. N.B. : The above information has been verbally conveyed by Tayo Giordano to Pablo Ruiz on 08/14/2020 20:27:42 (ET). Electronically Signed: Tayo Giordano, at 20:28 EDT Tel , Service support ,
--- NOTE | 2020-08-14 20:13 | EKG12_ITS ---
Test Reason : NEURO Blood Pressure : / mmHG Vent. Rate : 084 BPM Atrial Rate : 084 BPM P-R Int : 164 ms QRS Dur : 106 ms QT Int : 416 ms P-R-T Axes : 032 017 048 degrees QTc Int : 491 ms Normal sinus rhythm Nonspecific ST abnormality Prolonged QT Abnormal ECG Confirmed by RICKY GAMINO, DIAZ ([id number]), makeup editor ZITA LUX ([id number]) on 08/19/2020 9:52:39 AM Referred By: CHAGO Confirmed By:DIAZ GARCÍA MD
--- NOTE | 2020-08-14 20:16 | ED.VISSUMM ---
- ER Visit Summary Date of Service: 08/14/20 Chief Complaint: Left facial droop and leaning to the right History of Present Illness: The patient is a 70 F past medical history of hypertension and some form of cancer. Renetta had limited past medical history waiting for the family to arrive. Reportedly at 1955 PM about 15 to 20 minutes prior to arrival patient had sudden onset of facial droop and leaning to the right. Currently patient is vomiting and not following many commands. She herself is unable to give any history at this time. Physical Examination: Vital signs are stable initial blood pressure is elevated 197/116. H EENT exam pupils round reactive light. No trauma. No obvious facial droop. Neck nontender. No lymphadenopathy. Lungs clear to auscultation. Heart regular rhythm no murmur. Chest wall nontender. Abdomen soft nontender. Normal bowel sounds no peritoneal signs. Extremities nontender. No deformity no edema. She does raise her left arm but she really will not follow many commands so she is not moving either leg or the right upper extremity. Neurologically her eyes are open. She has a diminished mental status. She is not answering questions nor following commands. I cannot assess her voice because she is not speaking. And again I cannot obtain an NIH score at this time because she is really only following very limited commands. Test Results: CT of the brain shows a large left intracranial bleed 7.5 x 5.9 x 2.6 cm with left to right midline shift. Read by the radiologist reviewed by me. Chest x-ray shows ET tube just above the kiko. Bilateral expanded lungs. No acute process. EKG normal sinus rhythm rate 84 no acute signs of SD or ischemia. CBC shows a white count of 7. Hemoglobin is only 7 old labs shows a prior hemoglobin of 9. I suspect this is anemia of chronic disease because she is in acute renal failure with a BUN of 84 and creatinine is 7.5. Gap of 13. Potassium 3.2. Troponin is normal. Emergency Department Course and Treatment: Patient was started initiated on the stroke protocol. She is being taken the CAT scan. Patient returned from CAT scan her mental status remained significantly depressed. She did say yes but really could not answer questions. She was not moving her right side. In light that there was an acute intracranial bleed that was large with left to right shift the determination was made to intubate her. She was given etomidate and succinylcholine. Intubated on the first attempt with a 7-1/2 ET tube. Bilateral breath sounds were heard. It was approximately 23 cm at the lips. Patient was then placed on propofol drip and nicardipine for blood pressure. I will also add a fentanyl drip. Treatment Plan: I spoke to [facility] transfer line per family request. I spoke to the neuro ICU attending and she will be accepted and neurosurgery is also being consulted. Disposition: [facility] to [facility] neuro ICU for possible intracranial surgery Impression: Acute intracranial bleed with left to right shift Hemorrhagic stroke Acute on chronic hypertension Acute renal failure Acute on chronic anemia of chronic disease Intubated by ER Critical care time 35 minutes This note was generated with [employer] dictation software. It may contain incorrect words, spelling, and punctuation that were not noted in review of the chart prior to signing ED Disposition - Plan for ED Patient: Referrals: Chivo Rice MD [Primary Care Provider] -
[2020-08-14] MEDS: Ondansetron 4 MG/2 ML Vial IV (20:34)
[2020-08-14] MEDS: Etomidate 20 MG/10 ML Vial IV (20:41)
[2020-08-14 20:42] LABS: Absolute Lymphocyte Count 2.31 X10^3/uL (0.83-4.51); Absolute Neutrophil Count 3.8 X10^3/uL (2.0-7.7); Basophil# 0.04 X10^3/uL; Basophil% 0.6 % (0-1); Eosinophil# 0.38 X10^3/uL; Eosinophils% 5.4 % (0-5); Hematocrit 24.7 % (37-47); Hemoglobin 7.6 g/dL (12.0-15.0); Lymphocyte # 2.31 X10^3/ul (4.0); Mean Corp Hgb Conc 30.8 g/dL (32-36); Mean Corpuscular Hgb 26.8 pg (27.0-32.0); Monocyte# 0.49 X10^3/uL; NRBC Flagged by Analyzer 0 % (0-5); Neutrophil # 3.75 X10^3/uL (2.7-7.7); Neutrophil % 53.4 % (47-70); Platelet Count 206 K/mm3 (150-450); RBC Distribution Width CV 14.2 % (11.6-14.6); RBC Distribution Width SD 44.8 fl (35.1-43.9); Red Blood Count 2.84 M/mm3 (4.2-5.4)
[2020-08-14] MEDS: Succinylcholine Chloride 200 MG/10 ML Vial 100 MG IV (20:42)
[2020-08-14] MEDS: Propofol 10MG/Ml 1,000 MG/100 ML Bottle 3.1 MG CONT INF (20:47)
--- NOTE | 2020-08-14 20:50 | RAD_ITS ---
STUDY: X-RAY CHEST REASON FOR EXAM: Female, 70 years old. Mental alertness change TECHNIQUE: Frontal view of the chest COMPARISON: Mar 17 2018 FINDINGS: Endotracheal tube is in place with its tip likely within 2 cm of the kiko. Kiko is distorted and not well seen due to chronic postsurgical change in the right lower lung. Left lung is clear. Visualized right lung is clear. Right hilum is enlarged, chronically stably since prior. There is no pneumothorax, pulmonary edema or pleural effusions. Gastric tube terminates with its tip in the body of the stomach. Skeletal structures are intact. RAD/Chest 1 View IMPRESSION: 1. Endotracheal tube likely close to the kiko, consider retracting 1 cm. 2. Chronic right hilar and lower lung changes, in part postoperative. This can be further evaluated with CT chest with IV contrast. This appearance is chronic since 2018. 3. No acute findings. Electronically Signed: Maverick Foster, at 21:31 EDT Tel , Service support ,
[2020-08-14 20:51] LABS: International Normalized Ratio 1.2; Prothrombin Time (Protime)PT. 14.8 SECONDS (11.7-14.9)
[2020-08-14 20:52] LABS: Partial Thromboplast Time 30.9 Seconds (24.1-36.2)
[2020-08-14] MEDS: Propofol 200 MG/20 ML Vial 40 MG IV BOLUS ×2 (21:09→21:30)
[2020-08-14 21:23] LABS: Anion Gap 13 (5-15); BUN 84 mg/dL (7-18); BUN/Creat Ratio 11.2 RATIO (10-20); Calcium,Total 8.1 mg/dL (8.5-10.1); Chloride 111 mmol/L (98-107); EST Glomerular Filtration Rate 6 mL/min (>60); Est Glom Filt Rate - Afr Amer 7 mL/min (>60); Estimated Creatinine Clearance 5.86 ml/min; Glucose 132 mg/dL (74-106); Potassium 3.2 mmol/L (3.5-5.1); Sodium Level 138 mmol/L (136-145)
--- NOTE | 2020-08-14 21:29 | CM.ED ---
Social Work Responding to Stroke Alert. Patient son and [id number] present. Support provided. Jessica KHAN, JORGE
[2020-08-14] MEDS: fentaNYL drip 100 ML 5 MCG CONT INF (21:55)
--- NOTE | 2020-08-14 22:32 | CPS ---
Pt.'s FiO2 titrated down to 60% (Pt.'s perfusion rebounded). FiO2 titrated down to 40% shortly after; pt.'s SpO2 100%
== END 2020-08-14 22:16 | disposition short-term general hospital (02) ==
PROVIDERS: Emergency Provider Emergency Medicine; PCP Internal Medicine
DX: I62.9 Nontraumatic intracranial hemorrhage, unspecified (principal); I10 Essential (primary) hypertension; N17.9 Acute kidney failure, unspecified; D63.8 Anemia in other chronic diseases classified elsewhere; Z79.899 Other long term (current) drug therapy
CPT/HCPCS: 31500; 31720; 51702; 70450; 71045; 80048; 84484; 85025; 85610; 85730; 93005; 94002; 96365; 96366; 96368; 96375; 99251; 99285; J7030; A4216; G0463; J0330; J2405